=== PATIENT | female | born 1945 | race Caucasian/White ===

== ENCOUNTER 2017-07-10 16:44 | Inpatient (IN) | payer MEDICARE ==
[2017-07-10] MEDS ORDERED: DUONEB 0.5-3 MG/3 ml Neb IH ONE ×2 (16:55→17:21)
[2017-07-10] MEDS ORDERED: Sodium Chloride 0.9% 1000 ML 1,000 ML IV SCH (17:00)
[2017-07-10] MEDS ORDERED: Sodium Chloride 0.9% 1000 ML 1,000 ML ONE (17:09)
--- NOTE | 2017-07-10 17:15 | ERPHSYRPT ---
- History of Present Illness Source: patient Exam Limitations: no limitations Patient Subjective Stated Complaint: cough for 5 days Triage Nursing Assessment: cough for 5 days- yellow sputum production. fever at home. [facility] has had [address] peterson office this week 'but i think i am getting worse' skin worse and dry. dry cough noted. clear nasal drainage Timing/Duration: day(s) (5 days) Activities at Onset: none Severity of Dyspnea-Max: moderate Severity of Dyspnea-Current: moderate Possible Cause: frequent episodes Modifying Factors: Improves With: nothing Associated Symptoms: cough, wheezing Hx Tetanus, Diphtheria Vaccination/Date Given: Yes Hx Influenza Vaccination/Date Given: Yes Hx Pneumococcal Vaccination/Date Given: Yes Immunizations Up to Date: Yes <BREE COONEY - Last Filed: 07/10/17 18:50> <SELENE IRELAND - Last Filed: 07/10/17 21:01> - History of Present Illness Time Seen by Provider: 07/10/17 17:12 Physician History: cough for 5 days cough for 5 days- yellow sputum production. fever at home. [facility] has had [address] peterson office this week 'but i think i am getting worse' skin worse and dry. dry cough noted. clear nasal drainage. Patient has been off and on wheezing, as well as recurrent bronchitis. patient has been coughing with greenish yellow phlegm, started on antibiotics 3 days ago (BREE COONEY) Allergies/Adverse Reactions: albuterol sulfate [From Proventil HFA] Allergy (Intermediate, Verified 07/10/17 16:54) prednisone Allergy (Intermediate, Verified 07/10/17 16:54) lisinopril Allergy (Mild, Verified 07/10/17 16:54) Cough Home Medications: Acetaminophen [Tylenol Extra Strength] 1,000 mg PO Q6HPRN PRN 07/24/14 [History] Buspirone HCl 5 mg [Buspar 5 mg] 1 tab PO BIDPRN PRN 07/24/14 [History] Losartan/Hydrochlorothiazide [Losartan-Hctz 100-12.5 mg Tab] 1 tab PO DAILY 02/28 [History] Mvit-Mins/Folic Acid/Soy Isofl [One-A-Day Menopause Formula Tb] 1 each PO DAILY 07/17/15 [History] Simvastatin [Zocor] 5 mg PO HS 03/04/16 [History] - Review of Systems Constitutional: No Fever, No Chills Eyes: No Symptoms Ears, Nose, & Throat: No Symptoms Respiratory: Cough, Dyspnea, Dyspnea on Exertion (KONG) Cardiac: No Chest Pain, No Edema, No Syncope Abdominal/Gastrointestinal: No Abdominal Pain, No Nausea, No Vomiting, No Diarrhea Genitourinary Symptoms: No Dysuria Musculoskeletal: No Back Pain, No Neck Pain Skin: No Rash Neurological: No Dizziness, No Focal Weakness, No Sensory Changes Psychological: No Symptoms Endocrine: No Symptoms All Other Systems: Reviewed and Negative <JACQUELINE,BREE - Last Filed: 07/10/17 18:50> - Past Medical History Pertinent Past Medical History: Yes Neurological History: TIA ENT History: Cataracts Cardiac History: High Cholesterol, Hypertension Respiratory History: Asthma, Bronchitis, Pneumonia Endocrine Medical History: No Pertinent History Musculoskeletal History: Arthritis GI Medical History: Gallbladder Disease, Hemorrhoids, Irritable Bowel History: No Pertinent History Psycho-Social History: Anxiety, Depression Female Reproductive Disorders: Other - Past Surgical History Past Surgical History: Yes Neuro Surgical History: No Pertinent History Cardiac: No Pertinent History Respiratory: No Pertinent History Gastrointestinal: Appendectomy, Cholecystectomy, Hernia Repair Musculoskeletal: Orthopedic Surgery Female Surgical History: Hysterectomy Other Surgical History: L KNEE - CORNEAL TRANSPLANTS - CATARACTS BOTH EYES. C5- C6 NECK SURGERY tonsilectomy - Social History Smoking Status: Never smoker How long have you smoked: never Exposure to second hand smoke: Yes Drug Use: none Patient Lives Alone: No <JACQUELINE,BREE - Last Filed: 07/10/17 18:50> - Physical Exam General Appearance: no apparent distress, alert Eye Exam: PERRL/EOMI Ears, Nose, Throat Exam: normal pharynx Neck Exam: normal inspection, supple Respiratory Exam: diminished breath sounds, rhonchi, wheezing Cardiovascular/Chest Exam: normal heart sounds, regular rate/rhythm Abdominal/Gastrointestinal Exam: soft, No tenderness, No distention, No mass Extremity Exam: non-tender, normal range of motion, normal inspection, no calf tenderness, no pedal edema Neurologic Exam: alert, oriented x 3, cooperative, renderer II-XII nml as tested, sensation nml, No motor deficits Skin Exam: normal color, warm, No dry SpO2: 98 Oxygen Delivery: Room Air <JACQUELINE,BREE - Last Filed: 07/10/17 18:50> - Physical Exam SpO2 Interpretation: normal <SELENE IRELAND - Last Filed: 07/10/17 21:01> - Nursing Vital Signs Nursing Vital Signs: Initial Vital Signs Temperature 97.5 F 07/10/17 16:49 Pulse Rate 116 H 07/10/17 16:49 Respiratory Rate 18 07/10/17 16:49 Blood Pressure 118/58 07/10/17 16:49 O2 Sat by Pulse Oximetry 94 L 07/10/17 16:49 Pain Scale Pain Intensity 0 - Course Nursing assessment & vital signs reviewed: Yes EKG Interpreted by Me: Sinus Tach - Radiology Exams Chest X-ray Interpretation: Reviewed by me, Negative, No Pneumonia <LALA COONEYSH - Last Filed: 07/10/17 18:50> - Course EKG Interpreted by Me: RATE (103), Sinus Tach, NORMAL AXIS, NORMAL INTERVALS ( QTc 412), NORMAL QRS, NORMAL ST-T - Radiology Exams cxr X-ray Interpretation: Interpreted by me, Negative, No Pneumonia <SELENE IRELAND - Last Filed: 07/10/17 21:01> Ordered Tests: Active Orders 24 hr Category Date Time Status Filter Plant Supervisor STAT Care 07/10/17 16:57 Active EKG-ER Only STAT Care 07/10/17 16:55 Active IV Insertion STAT Care 07/10/17 19:34 Active Oxygen-ED Only NASAL CANNULA 2 lpm Care 07/10/17 16:55 Active CHEST 2 VIEWS (PA AND LAT) Stat Exams 07/10/17 16:56 Taken BLOOD CULTURE Stat Lab 07/10/17 20:51 Received CBC W DIFF Stat Lab 07/10/17 17:30 Completed CMP Stat Lab 07/10/17 16:55 Completed Lactic Acid Stat Lab 07/10/17 20:00 Completed MAGNESIUM Stat Lab 07/10/17 16:55 Completed Manual Differential NC Stat Lab 07/10/17 17:30 Completed NT PRO BNP Stat Lab 07/10/17 17:00 Completed TROPONIN Stat Lab 07/10/17 17:00 Completed Respiratory Nebulizer STAT RT 07/10/17 16:57 Completed Medication Summary Generic Name Dose Route Start Last Admin Trade Name Freq PRN Reason Stop Dose Admin Sodium Chloride 1,000 mls @ 50 mls/hr 07/10/17 17:00 07/10/17 17:27 Sodium Chloride 0.9% 1000 Ml IV 08/09/17 16:59 50 mls/hr .Q20H JOHNNA Administration Discontinued Medications Generic Name Dose Route Start Last Admin Trade Name Freq PRN Reason Stop Dose Admin Albuterol/Ipratropium 3 ml 07/10/17 16:55 07/10/17 17:27 Duoneb 0.5-3 Mg/3 Ml Neb IH 07/10/17 16:56 3 ml STAT ONE Administration Albuterol/Ipratropium Confirm 07/10/17 17:21 Duoneb 0.5-3 Mg/3 Ml Neb Administered 07/10/17 17:22 Dose 3 ml IH .STK-MED ONE Hydrocortisone Sodium Succinate 250 mg 07/10/17 18:20 07/10/17 18:27 Solu-Cortef 250mg IV 07/10/17 18:21 250 mg Q6H STA Administration Hydrocortisone Sodium Succinate Confirm 07/10/17 18:27 Solu-Cortef 250mg Administered 07/10/17 18:28 Dose 250 mg .ROUTE .STK-MED ONE Hydroxyzine HCl 25 mg 07/10/17 19:37 07/10/17 19:46 Atarax 25 Mg PO 07/10/17 19:38 25 mg STAT ONE Administration Hydroxyzine HCl Confirm 07/10/17 19:43 Atarax 25 Mg Administered 07/10/17 19:44 Dose 25 mg .ROUTE .STK-MED ONE Ceftriaxone Sodium/Dextrose 1 g in 50 mls @ 100 mls/hr 07/10/17 19:34 19:46 Rocephin 1 Gm-D5w 50 Ml Bag IV 07/10/17 20:03 100 mls/hr STAT STA Administration Ceftriaxone Sodium/Dextrose Confirm 07/10/17 19:43 Rocephin 1 Gm-D5w 50 Ml Bag Administered 07/10/17 19:44 Dose 1 g in 50 mls @ ud IV .STK-MED ONE Levalbuterol HCl 1.25 mg 07/10/17 19:36 07/10/17 19:52 Xopenex 1.25 Mg/0.5 Ml Ud Nebule IH 07/10/17 19:37 1.25 mg STAT ONE Administration Levalbuterol HCl Confirm 07/10/17 19:49 Xopenex 1.25 Mg/0.5 Ml Ud Nebule Administered 07/10/17 19:50 Dose 1.25 mg IH .STK-MED ONE Sodium Chloride Confirm 07/10/17 19:49 Sodium Chloride 3 Ml Ud Nebules Administered 07/10/17 19:50 Dose 3 ml IH .STK-MED ONE Lab/Rad Data: Laboratory Result Diagrams 07/10/17 17:30 07/10/17 16:55 Laboratory Results 07/10/17 07/10/17 07/10/17 Range/Units 20:00 17:30 17:00 WBC 10.2 (4.0-10.5) K/mm3 RBC 4.72 (4.1-5.4) M/mm3 Hgb 13.7 (12.0-16.0) gm/dl Hct 43.8 (35-47) % MCV 92.8 (78-100) fl MCH 29.0 (26-32) pg MCHC 31.3 L (32-36) g/dl RDW 14.6 H (11.5-14.0) % Plt Count 227 (150-450) K/mm3 MPV 9.8 H (6-9.5) fl Segmented Neutrophils 66 (36.0-66.0) % Lymphocytes (Manual) 29 (24-44) % Monocytes (Manual) 5 (0.0-12.0) % Differential Comment ABNORMAL Platelet Estimate NORMAL (NORMAL) Poikilocytosis 1+ Anisocytosis 1+ Sodium (136-145) mEq/L Potassium (3.5-5.1) mEq/L Chloride (98-107) mEq/L Carbon Dioxide (21-32) mEq/L Anion Gap (5-15) MEQ/L BUN (9-20) mg/dL Creatinine (0.55-1.30) mg/dl Estimated GFR ML/MIN Glucose (70-110) MG/DL Lactic Acid 1.4 (0.4-2.0) Calcium (8.5-10.1) mg/dL Magnesium (1.8-2.4) mg/dL Total Bilirubin (0.2-1.0) mg/dL AST (15-37) U/L ALT (12-78) U/L Alkaline Phosphatase (46-116) U/L Troponin I SEW ON OPERATOR NT-Pro-B Natriuret Pep SEW ON OPERATOR Serum Total Protein (6.4-8.2) gm/dL Albumin (3.4-5.0) g/dL 07/10/17 Range/Units 16:55 WBC (4.0-10.5) K/mm3 RBC (4.1-5.4) M/mm3 Hgb (12.0-16.0) gm/dl Hct (35-47) % MCV (78-100) fl MCH (26-32) pg MCHC (32-36) g/dl RDW (11.5-14.0) % Plt Count (150-450) K/mm3 MPV (6-9.5) fl Segmented Neutrophils (36.0-66.0) % Lymphocytes (Manual) (24-44) % Monocytes (Manual) (0.0-12.0) % Differential Comment Platelet Estimate (NORMAL) Poikilocytosis Anisocytosis Sodium 142 (136-145) mEq/L Potassium 3.9 (3.5-5.1) mEq/L Chloride 106 (98-107) mEq/L Carbon Dioxide 29.8 (21-32) mEq/L Anion Gap 10.0 (5-15) MEQ/L BUN 26 H (9-20) mg/dL Creatinine 1.32 H (0.55-1.30) mg/dl Estimated GFR 42 ML/MIN Glucose 101 (70-110) MG/DL Lactic Acid (0.4-2.0) Calcium 9.1 (8.5-10.1) mg/dL Magnesium 2.1 (1.8-2.4) mg/dL Total Bilirubin 0.40 (0.2-1.0) mg/dL AST 18 (15-37) U/L ALT 21 (12-78) U/L Alkaline Phosphatase 96 (46-116) U/L Troponin I NT-Pro-B Natriuret Pep Serum Total Protein 7.3 (6.4-8.2) gm/dL Albumin 3.3 L (3.4-5.0) g/dL <JACQUELINE,BREE - Last Filed: 07/10/17 18:50> - Progress Discussed with .: Jacqueline Will see patient in: hospital (full admit) Counseled pt/family regarding: lab results, diagnosis, need for follow-up, rad results <SELENE IRELAND - Last Filed: 07/10/17 21:01> - Progress Progress Note: 07/10/17 19:41 Pt initially seen per Dr cooney. She has hx of asthma, nonsmoker. She was treated with two steroid shots thru Dr Cooney office. She has increased cough with phlegm production over the past few days to one week. Worse since Mon. States feels shaky with hx of albuterol but takes albuterol inhlaer without problems, has had xzopenex in past without problems, and had duoneb today without problems. PT: Wheezing bilateral diffusely. 07/10/17 20:59 She has continued diffuse wheezing despite nebs and steroids. She has failed OP therapy with office injections of steroids. Rocephin given. Called Dr Cooney who will admit for IP care. 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
[2017-07-10 17:35] LABS: Granulocyte Absolute (ANC) 7.45 (1.4-6.9); Hematocrit 43.8 % (35-47); Hemoglobin 13.7 gm/dl (12.0-16.0); Mean Cell Volume 92.8 fl (78-100); Mean Corpuscular Hgb Concent. 31.3 g/dl (32-36); Mean Platelet Volume 9.8 fl (6-9.5); Platelet Count 227 K/mm3 (150-450); Red Blood Count 4.72 M/mm3 (4.1-5.4); Red Cell Distribution Width 14.6 % (11.5-14.0); White Blood Count 10.2 K/mm3 (4.0-10.5)
[2017-07-10 18:13] LABS: Lymphocytes 29 % (24-44); Monocyte 5 % (0.0-12.0); Neutrophils 66 % (36.0-66.0); Total Cells Counted 100
[2017-07-10 18:16] LABS: ANISOCYTOSIS 1+; Platelet Estimate NORMAL (NORMAL); Poikilocytosis 1+
[2017-07-10] MEDS ORDERED: solu-CORTEF 250MG IV STA (18:20)
[2017-07-10] MEDS ORDERED: solu-CORTEF 250MG ONE (18:27)
[2017-07-10 19:34] LABS: ALBUMIN 3.3 g/dL (3.4-5.0); BILIRUBIN,TOTAL 0.4 mg/dL (0.2-1.0); Calcium 9.1 mg/dL (8.5-10.1); Carbon Dioxide 29.8 mEq/L (21-32); Creatinine 1 1.32 mg/dl (0.55-1.30); MAGNESIUM 2.1 mg/dL (1.8-2.4); Potassium 3.9 mEq/L (3.5-5.1); Total Protein 7.3 gm/dL (6.4-8.2)
[2017-07-10] MEDS ORDERED: ROCEPHIN 1 Gm-D5w 50 ml Bag** 1 G/50 ML IVPB IV STA (19:34)
[2017-07-10] MEDS ORDERED: Xopenex 1.25 MG/0.5 ML UD NEBULE IH ONE ×2 (19:36→19:49)
[2017-07-10] MEDS ORDERED: ATARAX 25 MG PO ONE (19:37)
[2017-07-10] MEDS ORDERED: ATARAX 25 MG ONE (19:43)
[2017-07-10] MEDS ORDERED: ROCEPHIN 1 Gm-D5w 50 ml Bag** 1 G/50 ML IVPB IV ONE (19:43)
[2017-07-10] MEDS ORDERED: Sodium Chloride 3 ML UD NEBULES IH ONE (19:49)
[2017-07-10] MEDS ORDERED: Vibramycin 100 MG PO ONE (20:59)
--- NOTE | 2017-07-10 21:13 | XRAY ---
Indication: Cough and short of breath. Comparison: May 28, 2016. PA/lateral chest again demonstrates normal heart and lungs with a few calcified granulomas. Bony thorax intact again with mild degenerative changes and lower cervical fusion surgery. No new/acute findings.
[2017-07-10] MEDS ORDERED: TYLENOL 325 MG PO PRN (21:29)
[2017-07-10] MEDS: solu-MEDROL 125 MG IV SCH (21:32)
[2017-07-10] MEDS: CLARITIN 10 MG PO SCH (22:48)
[2017-07-10] MEDS: Vibramycin 100 MG PO SCH (22:49)
[2017-07-10] MEDS: Zocor 10MG PO SCH (22:49)
[2017-07-10] MEDS: D5W/0.45NS W/ 20mEq KCl 1000 ML 1,000 ML IV SCH (22:50)
[2017-07-11] MEDS: DUONEB 0.5-3 MG/3 ml Neb IH SCH ×7 (02:45→23:05)
[2017-07-11] MEDS: solu-MEDROL 125 MG IV SCH ×3 (04:52→21:21)
[2017-07-11] MEDS: D5W/0.45NS W/ 20mEq KCl 1000 ML 1,000 ML IV SCH ×2 (08:34→18:39)
[2017-07-11] MEDS: Vibramycin 100 MG PO SCH ×2 (09:43→21:22)
[2017-07-11] MEDS ORDERED: TYLENOL EXTRA STRENGTH 500 MG PO PRN (10:28)
[2017-07-11] MEDS ORDERED: BUSPAR 5 MG PO PRN (10:28)
[2017-07-11] MEDS ORDERED: Ventolin Hfa MDI IH PRN (10:28)
[2017-07-11] MEDS ORDERED: PROVENTIL COMMON CANISTER IH SCH (10:45)
[2017-07-11] MEDS: Cozaar 50 MG PO SCH (10:48)
[2017-07-11] MEDS: Flonase NASAL NS SCH (10:49)
[2017-07-11] MEDS: hydroDIURIL 25 MG PO SCH (10:49)
[2017-07-11] MEDS: THERAGRAN MULTIVITAMIN PO SCH (10:49)
--- NOTE | 2017-07-11 13:06 | PCM.HP ---
History of Present Illness - Chief Complaint Chief Complaint: Shortness of Breath History of Present Illness: is a 71 year old female.cough for 5 days cough for 5 days- yellow sputum production. fever at home. states has had [address] peterson office this week 'but i think i am getting worse' skin worse and dry. dry cough noted. clear nasal drainage. Patient has been off and on wheezing, as well as recurrent bronchitis. patient has been coughing with greenish yellow phlegm, started on antibiotics 3 days ago - Review of Systems Constitutional: No Fever, No Chills Eyes: No Symptoms Ears, Nose, & Throat: No Symptoms Respiratory: No Cough, No Short Of Breath Cardiac: No Chest Pain, No Edema, No Syncope Abdominal/Gastrointestinal: No Abdominal Pain, No Nausea, No Vomiting, No Diarrhea Genitourinary Symptoms: No Dysuria Musculoskeletal: No Back Pain, No Neck Pain Skin: No Rash Neurological: No Dizziness, No Focal Weakness, No Sensory Changes Psychological: No Symptoms Endocrine: No Symptoms Hematologic/Lymphatic: No Symptoms Immunological/Allergic: No Symptoms Medications & Allergies Home Medications: Home Medication List Acetaminophen [Tylenol Extra Strength] 1,000 mg PO Q6HPRN PRN 07/24/14 [History Confirmed 07/10/17] Buspirone HCl 5 mg [Buspar 5 mg] 1 tab PO BIDPRN PRN 07/24/14 [History Confirmed 07/10/17] Losartan/Hydrochlorothiazide [Losartan-Hctz 100-12.5 mg Tab] 1 tab PO DAILY 02/28 [History Confirmed 07/10/17] Ibuprofen 600 mg PO Q6H PRN PRN #20 tablet 07/17/15 [Rx Confirmed 07/10/17] Mvit-Mins/Folic Acid/Soy Isofl [One-A-Day Menopause Formula Tb] 1 each PO DAILY 07/17/15 [History Confirmed 07/10/17] Simvastatin [Zocor] 5 mg PO HS 03/04/16 [History Confirmed 07/10/17] Albuterol Sulfate [Ventolin Hfa] 18 gm IH Q4H PRN PRN 07/10/17 [History Confirmed 07/10/17] Cetirizine HCl [Zyrtec] 10 mg PO HS 07/10/17 [History Confirmed 07/10/17] Fluticasone Propionate [Flonase Nasal] 1 spray DAILY 07/10/17 [History Confirmed 07/10/17] Vits W-Ca,Fe,FA(<1Mg) [] 1 each PO DAILY 07/10/17 [History Confirmed 07/10/17] Allergies/Adverse Reactions: Allergies Allergy/AdvReac Type Severity Reaction Status Date / Time prednisone Allergy Intermediate Verified 07/10/17 16:54 lisinopril Allergy Mild Cough Verified 07/10/17 16:54 - Past Medical History Past Medical History: Yes Neurological History: TIA ENT History: Cataracts Cardiac History: High Cholesterol, Hypertension Respiratory History: Asthma, Bronchitis, Pneumonia Endocrine Medical History: No Pertinent History Musculoskelatal History: Arthritis GI Medical History: Gallbladder Disease, Hemorrhoids, Irritable Bowel History: No Pertinent History Pyscho-Social History: Anxiety, Depression Reproductive Disorders: Other - Female History Are you now?: No - Past Surgical History Past Surgical History: Yes Neuro Surgical History: No Pertinent History Cardiac History: No Pertinent History Respiratory Surgery: No Pertinent History GI Surgical History: Appendectomy, Cholecystectomy, Hernia Repair Genitourinary Surgical Hx: No Pertinent History Musculskeletal Surgical Hx: Orthopedic Surgery Female Surgical History: Hysterectomy Other Surgical History: L KNEE - CORNEAL TRANSPLANTS - CATARACTS BOTH EYES. C5- C6 NECK SURGERY tonsilectomy - Social History Smoking Status: Never smoker How long have you smoked: never Exposure to second hand smoke: Yes Alcohol: None Drug Use: none - Physical Exam Vital Signs: Vital Signs - 24 hr Temp Pulse Resp BP Pulse Ox 07/11/17 11:10 98.5 F 99 H 18 116/55 95 07/11/17 11:00 99 H 22 96 07/11/17 07:23 97.8 F 83 18 133/60 95 07/11/17 07:00 84 16 96 07/11/17 06:11 90 22 96 07/11/17 04:00 97.8 F 84 16 126/62 94 L 07/11/17 00:00 98.4 F 92 H 20 124/59 96 07/10/17 21:44 98.2 F 106 H 20 147/65 94 L 07/10/17 20:30 114 H 20 152/60 93 L 07/10/17 19:36 99 H 22 98 07/10/17 18:50 98 07/10/17 18:21 108 H 22 141/63 97 07/10/17 17:28 98 H 22 97 07/10/17 16:49 97.5 F 116 H 18 118/58 98 Oxygen-Last 24 hours O2 Percentage 2 Liters = 28% General Appearance: no apparent distress, alert Neurologic Exam: alert, oriented x 3, cooperative, normal mood/affect, nml cerebellar function, nml station & gait, sensation nml, No motor deficits Eye Exam: PERRL/EOMI, eyes nml inspection Ears, Nose, Throat Exam: normal ENT inspection, TMs normal, pharynx normal, moist mucous membranes Neck Exam: normal inspection, non-tender, supple, full range of motion Respiratory Exam: diminished breath sounds, rhonchi, wheezing, No respiratory distress Cardiovascular Exam: regular rate/rhythm, normal heart sounds, normal peripheral pulses Gastrointestinal/Abdomen Exam: soft, normal bowel sounds, No tenderness, No mass Back Exam: normal inspection, normal range of motion, No CVA tenderness, No vertebral tenderness Extremity Exam: normal inspection, normal range of motion, pelvis stable Skin Exam: normal color, warm, dry, No rash Lymphatic Exam: No adenopathy Results - Other Procedures and Tests Respiratory Therapy 07/11/17 07:00 Respiratory Nebulizer Q4H 07/11/17 11:17 Respiratory MDI Assessment/Plan (1) Acute asthmatic bronchitis Current Visit: Yes Status: Acute Assessment & Plan: Last Vital Signs Temp 98.5 F 07/11/17 11:10 Pulse 99 H 07/11/17 11:10 Resp 18 07/11/17 11:10 BP 116/55 07/11/17 11:10 Pulse Ox 95 07/11/17 11:10 Allergies prednisone Allergy (Intermediate, Verified 07/10/17 16:54) lisinopril Allergy (Mild, Verified 07/10/17 16:54) Cough Active Medications Acetaminophen (Tylenol 325 Mg) 650 mg PO Q4H PRN PRN PRN Reason: PAIN AND/OR FEVER Stop: 08/09/17 21:28 Acetaminophen (Tylenol Extra Strength 500 Mg) 1,000 mg PO Q6HPRN PRN PRN Reason: PAIN Stop: 08/10/17 10:27 Albuterol Sulfate (Proventil Common Canister) 2 puff IH Q4H PRN JOHNNA Stop: 08/10/17 10:44 Albuterol/Ipratropium (Duoneb 0.5-3 Mg/3 Ml Neb) 3 ml IH Q4HRT [facility] Stop: 08/09/17 22:59 Last Admin: 07/11/17 11:11 Dose: 3 ml Buspirone HCl (Buspar 5 Mg) 5 mg PO BIDPRN PRN PRN Reason: ANXIETY Stop: 08/10/17 10:27 Last Admin: 07/11/17 10:48 Dose: 5 mg Doxycycline Hyclate (Vibramycin 100 Mg) 100 mg PO BID JOHNNA Stop: 08/09/17 21:59 Last Admin: 07/11/17 09:43 Dose: 100 mg Fluticasone Propionate (Flonase Nasal) 0 gm NS DAILY [facility] Stop: 08/10/17 10:44 Last Admin: 07/11/17 10:49 Dose: 16 gm Hydrochlorothiazide (Hydrodiuril 25 Mg) 12.5 mg PO DAILY [facility] Stop: 08/10/17 10:44 Last Admin: 07/11/17 10:49 Dose: 12.5 mg Ceftriaxone Sodium/Dextrose (Rocephin 1 Gm-D5w 50 Ml Bag) 1 g in 50 mls @ 100 mls/hr IV Q24H22 [facility] Stop: 08/10/17 21:59 Potassium Chloride/Dextrose/Sod Cl (D5w/0.45ns W/ 20meq Kcl 1000 Ml) 1,000 mls @ 100 mls/hr IV .Q10H [facility] Stop: 08/09/17 21:29 Last Admin: 07/11/17 08:34 Dose: 100 mls/hr Ibuprofen (Motrin 600 Mg) 600 mg PO Q6H PRN PRN PRN Reason: PAIN Stop: 08/10/17 10:27 Loratadine (Claritin 10 Mg) 10 mg PO HS [facility] Stop: 08/09/17 21:59 Last Admin: 07/10/17 22:48 Dose: 10 mg Losartan Potassium (Cozaar 50 Mg) 100 mg PO DAILY [facility] Stop: 08/10/17 10:44 Last Admin: 07/11/17 10:48 Dose: 100 mg Methylprednisolone Sodium Succinate (Solu-Medrol 125 Mg) 80 mg IV Q8HT [facility] Stop: 08/10/17 13:59 Multivitamins (Theragran Multivitamin) 1 tab PO DAILY JOHNNA Stop: 08/10/17 10:44 Last Admin: 07/11/17 10:49 Dose: 1 tab Simvastatin (Zocor 10mg) 5 mg PO HS [facility] Stop: 08/09/17 21:59 Last Admin: 07/10/17 22:49 Dose: 5 mg Intake & Output 07/11/17 07/12/17 11:59 11:59 Intake Total 1593 360 Output Total 850 Balance 743 360 Weight 109.27 kg Orders 07/10/17 22:00 Loratadine 10 mg [Claritin 10 mg] 10 mg PO HS Simvastatin 10 mg [Zocor 10MG] 5 mg PO HS 07/11/17 07:00 Respiratory Nebulizer Q4H 07/11/17 10:28 Acetaminophen 500 mg [Tylenol Extra Strength 500 mg] 1,000 mg PO Q6HPRN PRN Buspirone HCl 5 mg [Buspar 5 mg] 5 mg PO BIDPRN PRN Ibuprofen 600 mg [Motrin 600 mg] 600 mg PO Q6H PRN PRN 07/11/17 10:45 Albuterol Common Canister [Proventil Common Canister] 2 puff IH Q4H PRN Fluticasone Propionate [Flonase NASAL] 0 gm NS DAILY Hydrochlorothiazide 25 mg [hydroDIURIL 25 MG] 12.5 mg PO DAILY Losartan Potassium 50 mg [Cozaar 50 MG] 100 mg PO DAILY Multivitamins,Therapeutic Tab* [Theragran Multivitamin] 1 tab PO DAILY 07/11/17 11:17 Respiratory MDI Lab Tests 07/10/17 07/10/17 07/10/17 16:55 17:00 17:30 WBC 10.2 RBC 4.72 Hgb 13.7 Hct 43.8 MCV 92.8 MCH 29.0 MCHC 31.3 L RDW 14.6 H Plt Count 227 MPV 9.8 H Segmented Neutrophils 66 Lymphocytes (Manual) 29 Monocytes (Manual) 5 Differential Comment ABNORMAL Platelet Estimate NORMAL Poikilocytosis 1+ Anisocytosis 1+ Sodium 142 Potassium 3.9 Chloride 106 Carbon Dioxide 29.8 Anion Gap 10.0 BUN 26 H Creatinine 1.32 H Estimated GFR 42 Glucose 101 Lactic Acid Calcium 9.1 Magnesium 2.1 Total Bilirubin 0.40 AST 18 ALT 21 Alkaline Phosphatase 96 Troponin I [employer] NT-Pro-B Natriuret Pep [employer] Serum Total Protein 7.3 Albumin 3.3 L 07/10/17 20:00 WBC RBC Hgb Hct MCV MCH MCHC RDW Plt Count MPV Segmented Neutrophils Lymphocytes (Manual) Monocytes (Manual) Differential Comment Platelet Estimate Poikilocytosis Anisocytosis Sodium Potassium Chloride Carbon Dioxide Anion Gap BUN Creatinine Estimated GFR Glucose Lactic Acid 1.4 Calcium Magnesium Total Bilirubin AST ALT Alkaline Phosphatase Troponin I NT-Pro-B Natriuret Pep Serum Total Protein Albumin Code(s): J45.909 - UNSPECIFIED ASTHMA, UNCOMPLICATED (2) Bronchospasm Current Visit: Yes Status: Acute Code(s): J98.01 - ACUTE BRONCHOSPASM (3) Failure of outpatient treatment Current Visit: Yes Status: Acute Code(s): Z78.9 - OTHER SPECIFIED HEALTH STATUS (4) 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
--- NOTE | 2017-07-11 13:08 | PCM.NOTE ---
Date and Time: 07/11/17 1307 Subjective Assessment: doing ok, - Review of Systems Constitutional: No Fever, No Chills Eyes: No Symptoms Ears, Nose, & Throat: No Symptoms Respiratory: Short Of Breath, No Cough Cardiac: No Chest Pain, No Edema, No Syncope Abdominal/Gastrointestinal: No Abdominal Pain, No Nausea, No Vomiting, No Diarrhea Genitourinary Symptoms: No Dysuria Musculoskeletal: No Back Pain, No Neck Pain Skin: No Rash Neurological: No Dizziness, No Focal Weakness, No Sensory Changes Psychological: No Symptoms Endocrine: No Symptoms Hematologic/Lymphatic: No Symptoms Immunological/Allergic: No Symptoms Objective Exam General Appearance: no apparent distress, alert Neurologic Exam: alert, oriented x 3, cooperative, normal mood/affect, nml cerebellar function, sensation nml, No motor deficits Skin Exam: normal color, warm, dry Eye Exam: PERRL, EOMI, eyes nml inspection Ears, Nose, Throat Exam: normal ENT inspection, pharynx normal, moist mucous membranes Neck Exam: normal inspection, non-tender, supple, full range of motion Respiratory Exam: normal breath sounds, lungs clear, No respiratory distress Cardiovascular Exam: regular rate/rhythm, normal heart sounds Gastrointestinal/Abdomen Exam: soft, No tenderness, No mass Extremity Exam: normal inspection, normal range of motion Back Exam: normal inspection, normal range of motion, No CVA tenderness, No vertebral tenderness Pelvic Exam: deferred Rectal Exam: deferred OBJECTIVE DATA Vital Signs: Vital Signs - 24 hr Temp Pulse Resp BP Pulse Ox 07/11/17 11:10 98.5 F 99 H 18 116/55 95 07/11/17 11:00 99 H 22 96 07/11/17 07:23 97.8 F 83 18 133/60 95 07/11/17 07:00 84 16 96 07/11/17 06:11 90 22 96 07/11/17 04:00 97.8 F 84 16 126/62 94 L 07/11/17 00:00 98.4 F 92 H 20 124/59 96 07/10/17 21:44 98.2 F 106 H 20 147/65 94 L 07/10/17 20:30 114 H 20 152/60 93 L 07/10/17 19:36 99 H 22 98 07/10/17 18:50 98 07/10/17 18:21 108 H 22 141/63 97 07/10/17 17:28 98 H 22 97 07/10/17 16:49 97.5 F 116 H 18 118/58 98 Oxygen-Last 24 hours O2 Percentage 2 Liters = 28% Intake and Output: Intake & Output 07/09/17 07/10/17 07/11/17 07/12/17 11:59 11:59 11:59 11:59 Intake Total 1593 360 Output Total 850 Balance 743 360 Weight 109.27 kg Assessment/Plan (1) Acute asthmatic bronchitis Current Visit: Yes Status: Acute Code(s): J45.909 - UNSPECIFIED ASTHMA, UNCOMPLICATED (2) Bronchospasm Current Visit: Yes Status: Acute Code(s): J98.01 - ACUTE BRONCHOSPASM (3) Failure of outpatient treatment Current Visit: Yes Status: Acute Code(s): Z78.9 - OTHER SPECIFIED HEALTH STATUS (4) 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
[2017-07-11] MEDS: ROCEPHIN 1 Gm-D5w 50 ml Bag** 1 G/50 ML IVPB IV SCH (21:19)
[2017-07-11] MEDS: CLARITIN 10 MG PO SCH (21:21)
[2017-07-11] MEDS: Zocor 10MG PO SCH (21:22)
[2017-07-12] MEDS: DUONEB 0.5-3 MG/3 ml Neb IH SCH ×6 (03:16→23:24)
[2017-07-12] MEDS: D5W/0.45NS W/ 20mEq KCl 1000 ML 1,000 ML IV SCH ×2 (05:17→15:01)
[2017-07-12] MEDS: solu-MEDROL 125 MG IV SCH ×3 (05:18→21:37)
--- NOTE | 2017-07-12 09:28 | PCM.NOTE ---
Date and Time: 07/12/17926 Subjective Assessment: still wheezing - Review of Systems Constitutional: No Fever, No Chills Eyes: No Symptoms Ears, Nose, & Throat: No Symptoms Respiratory: No Cough, No Short Of Breath Cardiac: No Chest Pain, No Edema, No Syncope Abdominal/Gastrointestinal: No Abdominal Pain, No Nausea, No Vomiting, No Diarrhea Genitourinary Symptoms: No Dysuria Musculoskeletal: No Back Pain, No Neck Pain Skin: No Rash Neurological: No Dizziness, No Focal Weakness, No Sensory Changes Psychological: No Symptoms Endocrine: No Symptoms Hematologic/Lymphatic: No Symptoms Immunological/Allergic: No Symptoms Objective Exam General Appearance: no apparent distress, alert Neurologic Exam: alert, oriented x 3, cooperative, normal mood/affect, nml cerebellar function, sensation nml, No motor deficits Skin Exam: normal color, warm, dry Eye Exam: PERRL, EOMI, eyes nml inspection Ears, Nose, Throat Exam: normal ENT inspection, pharynx normal, moist mucous membranes Neck Exam: normal inspection, non-tender, supple, full range of motion Respiratory Exam: normal breath sounds, lungs clear, No respiratory distress Cardiovascular Exam: regular rate/rhythm, normal heart sounds Gastrointestinal/Abdomen Exam: soft, No tenderness, No mass Extremity Exam: normal inspection, normal range of motion Back Exam: normal inspection, normal range of motion, No CVA tenderness, No vertebral tenderness Pelvic Exam: deferred Rectal Exam: deferred OBJECTIVE DATA Vital Signs: Vital Signs - 24 hr Temp Pulse Resp BP Pulse Ox 07/12/17 07:53 97.8 F 87 20 120/58 94 L 07/12/17 07:00 103 H 20 94 L 07/12/17 04:00 99.2 F 96 H 20 141/62 92 L 07/12/17 03:16 96 H 20 92 L 07/12/17 00:00 98.8 F 107 H 20 134/63 93 L 07/11/17 23:05 91 H 20 95 07/11/17 20:00 98.7 F 87 20 114/54 93 L 07/11/17 19:45 89 20 95 07/11/17 17:38 98.4 F 108 H 18 110/53 93 L 07/11/17 16:00 98.4 F 108 H 18 110/53 93 L 07/11/17 15:21 83 20 94 L 07/11/17 11:10 98.5 F 99 H 18 116/55 95 07/11/17 11:00 99 H 22 96 Pain Assessment - Last Documented Pain Intensity 5 Pain Scale Used 0-10 Pain Scale Intake and Output: Intake & Output 07/09/17 07/10/17 07/11/17 07/12/17 11:59 11:59 11:59 11:59 Intake Total 1593 3710 Output Total 850 1800 Balance 743 1910 Weight 109.27 kg Assessment/Plan (1) Acute asthmatic bronchitis Current Visit: Yes Status: Acute Assessment & Plan: Chief Complaint Diagnosis Shortness of Breath Allergies Allergy/AdvReac Type Severity Reaction Status Date / Time prednisone Allergy Intermediate Verified 07/10/17 16:54 lisinopril Allergy Mild Cough Verified 07/10/17 16:54 Vital Signs (Last 24 hours) Temp Pulse Resp BP Pulse Ox 07/12/17 07:53 97.8 F 87 20 120/58 94 L 07/12/17 07:00 103 H 20 94 L 07/12/17 04:00 99.2 F 96 H 20 141/62 92 L 07/12/17 03:16 96 H 20 92 L 07/12/17 00:00 98.8 F 107 H 20 134/63 93 L 07/11/17 23:05 91 H 20 95 07/11/17 20:00 98.7 F 87 20 114/54 93 L 07/11/17 19:45 89 20 95 07/11/17 17:38 98.4 F 108 H 18 110/53 93 L 07/11/17 16:00 98.4 F 108 H 18 110/53 93 L 07/11/17 15:21 83 20 94 L 07/11/17 11:10 98.5 F 99 H 18 116/55 95 07/11/17 11:00 99 H 22 96 Home Medications Medication Instructions Recorded Confirmed Last Taken Type Albuterol Sulfate [Ventolin Hfa] 18 gm IH Q4H PRN PRN 07/10/17 07/10/17 History Cetirizine HCl [Zyrtec] 10 mg PO HS 07/10/17 07/10/17 07/09/17 21:00 History Fluticasone Propionate [Flonase 1 spray DAILY 07/10/17 07/10/17 07/09/17 History Nasal] Vits W-Ca,Fe,FA(<1Mg) 1 each PO DAILY 07/10/17 07/10/17 07/10/17 History [] Current Medications Generic Name Dose Route Start Last Admin Trade Name Freq PRN Reason Stop Dose Admin Acetaminophen 650 mg 07/10/17 21:29 Tylenol 325 Mg PO 08/09/17 21:28 Q4H PRN PRN PAIN AND/OR FEVER Acetaminophen 1,000 mg 07/11/17 10:28 07/12/17 03:35 Tylenol Extra Strength 500 Mg PO 08/10/17 10:27 1,000 mg Q6HPRN PRN Administration PAIN Albuterol Sulfate 2 puff 07/11/17 10:45 Proventil Common Canister IH 08/10/17 10:44 Q4H PRN JOHNNA Albuterol/Ipratropium 3 ml 07/10/17 23:00 07/12/17 06:59 Duoneb 0.5-3 Mg/3 Ml Neb IH 08/09/17 22:59 3 ml Q4HRT JOHNNA Administration Buspirone HCl 5 mg 07/11/17 10:28 07/11/17 10:48 Buspar 5 Mg PO 08/10/17 10:27 5 mg BIDPRN PRN Administration ANXIETY Doxycycline Hyclate 100 mg 07/10/17 22:00 07/11/17 21:22 Vibramycin 100 Mg PO 08/09/17 21:59 100 mg BID JOHNNA Administration Fluticasone Propionate 0 gm 07/11/17 10:45 07/11/17 10:49 Flonase Nasal NS 08/10/17 10:44 16 gm DAILY JOHNNA Administration Hydrochlorothiazide 12.5 mg 07/11/17 10:45 07/11/17 10:49 Hydrodiuril 25 Mg PO 08/10/17 10:44 12.5 mg DAILY JOHNNA Administration Ceftriaxone Sodium/Dextrose 1 g in 50 mls @ 100 mls/hr 07/11/17 22:00 21:19 Rocephin 1 Gm-D5w 50 Ml Bag IV 08/10/17 21:59 100 mls/hr Q24H22 JOHNNA Administration Potassium Chloride/Dextrose/Sod Cl 1,000 mls @ 100 mls/hr 07/10/17 21:30 05:17 D5w/0.45ns W/ 20meq Kcl 1000 Ml IV 08/09/17 21:29 100 mls/hr .Q10H JOHNNA Administration Ibuprofen 600 mg 07/11/17 10:28 Motrin 600 Mg PO 08/10/17 10:27 Q6H PRN PRN PAIN Loratadine 10 mg 07/10/17 22:00 07/11/17 21:21 Claritin 10 Mg PO 08/09/17 21:59 10 mg HS JOHNNA Administration Losartan Potassium 100 mg 07/11/17 10:45 07/11/17 10:48 Cozaar 50 Mg PO 08/10/17 10:44 100 mg DAILY JOHNNA Administration Methylprednisolone Sodium Succinate 80 mg 07/11/17 14:00 07/12/17 05:18 Solu-Medrol 125 Mg IV 08/10/17 13:59 80 mg Q8HT JOHNNA Administration Multivitamins 1 tab 07/11/17 10:45 07/11/17 10:49 Theragran Multivitamin PO 08/10/17 10:44 1 tab DAILY JOHNNA Administration Simvastatin 5 mg 07/10/17 22:00 07/11/17 21:22 Zocor 10mg PO 08/09/17 21:59 5 mg HS JOHNNA Administration Discontinued Medications Generic Name Dose Route Start Last Admin Trade Name Freq PRN Reason Stop Dose Admin Albuterol/Ipratropium 3 ml 07/10/17 16:55 07/10/17 17:27 Duoneb 0.5-3 Mg/3 Ml Neb IH 07/10/17 16:56 3 ml STAT ONE Administration Albuterol/Ipratropium Confirm 07/10/17 17:21 Duoneb 0.5-3 Mg/3 Ml Neb Administered 07/10/17 17:22 Dose 3 ml IH .STK-MED ONE Doxycycline Hyclate 100 mg 07/10/17 20:59 07/10/17 23:06 Vibramycin 100 Mg PO 07/10/17 21:00 Not Given STAT ONE Hydrocortisone Sodium Succinate 250 mg 07/10/17 18:20 07/10/17 18:27 Solu-Cortef 250mg IV 07/10/17 18:21 250 mg Q6H STA Administration Hydrocortisone Sodium Succinate Confirm 07/10/17 18:27 Solu-Cortef 250mg Administered 07/10/17 18:28 Dose 250 mg .ROUTE .STK-MED ONE Hydroxyzine HCl 25 mg 07/10/17 19:37 07/10/17 19:46 Atarax 25 Mg PO 07/10/17 19:38 25 mg STAT ONE Administration Hydroxyzine HCl Confirm 07/10/17 19:43 Atarax 25 Mg Administered 07/10/17 19:44 Dose 25 mg .ROUTE .STK-MED ONE Sodium Chloride 1,000 mls @ 50 mls/hr 07/10/17 17:00 07/10/17 17:27 Sodium Chloride 0.9% 1000 Ml IV 08/09/17 16:59 50 mls/hr .Q20H JOHNNA Administration Ceftriaxone Sodium/Dextrose 1 g in 50 mls @ 100 mls/hr 07/10/17 19:34 19:46 Rocephin 1 Gm-D5w 50 Ml Bag IV 07/10/17 20:03 100 mls/hr STAT STA Administration Ceftriaxone Sodium/Dextrose Confirm 07/10/17 19:43 Rocephin 1 Gm-D5w 50 Ml Bag Administered 07/10/17 19:44 Dose 1 g in 50 mls @ ud IV .STK-MED ONE Sodium Chloride Confirm 07/10/17 17:09 Sodium Chloride 0.9% 1000 Ml Administered 07/10/17 17:10 Dose 1,000 mls @ ud .ROUTE .STK-MED ONE Levalbuterol HCl 1.25 mg 07/10/17 19:36 07/10/17 19:52 Xopenex 1.25 Mg/0.5 Ml Ud Nebule IH 07/10/17 19:37 1.25 mg STAT ONE Administration Levalbuterol HCl Confirm 07/10/17 19:49 Xopenex 1.25 Mg/0.5 Ml Ud Nebule Administered 07/10/17 19:50 Dose 1.25 mg IH .STK-MED ONE Methylprednisolone Sodium Succinate 80 mg 07/10/17 21:30 07/11/17 04:52 Solu-Medrol 125 Mg IV 08/09/17 21:29 80 mg Q8H JOHNNA Administration Sodium Chloride Confirm 07/10/17 19:49 Sodium Chloride 3 Ml Ud Nebules Administered 07/10/17 19:50 Dose 3 ml IH .STK-MED ONE Intake & Output (Last 24 hours) 07/09/17 07/10/17 07/11/17 07/12/17 11:59 11:59 11:59 11:59 Intake Total 1593 3710 Output Total 850 1800 Balance 743 1910 Weight 109.27 kg Microbiology Results (Last 24 hours) 07/10/17 20:51 Blood - Pending 07/10/17 20:51 Blood Blood Culture - Preliminary NO GROWTH TO DATE 07/10/17 17:15 Blood - Pending 07/10/17 17:15 Blood Blood Culture - Preliminary NO GROWTH TO DATE Orders (Last 24 hours) Category Date Time Status Acetaminophen 500 mg [Tylenol Extra Strength 500 mg* Med 07/11/17 10:28 Active ] 1,000 mg PO Q6HPRN PRN Albuterol Common Canister [Proventil Common Canister Med 07/11/17 10:45 Active ] 2 puff IH Q4H PRN Buspirone HCl 5 mg [Buspar 5 mg] Med 07/11/17 10:28 Active 5 mg PO BIDPRN PRN Ceftriaxone 1 GM/50 ML PREMIX* [ROCEPHIN 1 Gm-D5w 50 ml Med 07/11/17 22:00 Active Bag] 1 g in 50 ml IV Q24H22 Fluticasone Propionate [Flonase NASAL] Med 07/11/17 10:45 Active 0 gm NS DAILY Hydrochlorothiazide 25 mg [hydroDIURIL 25 MG] Med 07/11/17 10:45 Active 12.5 mg PO DAILY Ibuprofen 600 mg [Motrin 600 mg] Med 07/11/17 10:28 Active 600 mg PO Q6H PRN PRN Losartan Potassium 50 mg [Cozaar 50 MG] Med 07/11/17 10:45 Active 100 mg PO DAILY Methylprednis Sod Succ 125 mg* [solu-MEDROL 125 MG] Med 07/11/17 14:00 Active 80 mg IV Q8HT Multivitamins,Therapeutic Tab* [Theragran Multivitamin* Med 07/11/17 10:45 Active ] 1 tab PO DAILY Respiratory MDI RT 07/11/17 11:17 Active Code(s): J45.909 - UNSPECIFIED ASTHMA, UNCOMPLICATED (2) Bronchospasm Current Visit: Yes Status: Acute Code(s): J98.01 - ACUTE BRONCHOSPASM (3) Failure of outpatient treatment Current Visit: Yes Status: Acute Code(s): Z78.9 - OTHER SPECIFIED HEALTH STATUS (4) 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
[2017-07-12 09:59] LABS: Hematocrit 40.3 % (35-47); Hemoglobin 12.3 gm/dl (12.0-16.0); Mean Cell Volume 93.7 fl (78-100); Mean Corpuscular Hemoglobin 28.6 pg (26-32); Mean Corpuscular Hgb Concent. 30.5 g/dl (32-36); Mean Platelet Volume 9.8 fl (6-9.5); Platelet Count 221 K/mm3 (150-450); Red Cell Distribution Width 14.9 % (11.5-14.0); White Blood Count 13.2 K/mm3 (4.0-10.5)
[2017-07-12] MEDS ORDERED: HYDROCHLOROTHIAZIDE PO SCH (10:00)
[2017-07-12] MEDS ORDERED: LOSARTAN PO SCH (10:00)
[2017-07-12] MEDS ORDERED: NON-FORMULARY ITEM (Prenatal Vits W-Ca,Fe,Fa(<1mg) [Prenatal] 1 EACH) PO SCH (10:00)
[2017-07-12 10:25] LABS: ALBUMIN 2.8 g/dL (3.4-5.0); ANION GAP 12.4 MEQ/L (5-15); BILIRUBIN,TOTAL 0.2 mg/dL (0.2-1.0); Calcium 8.8 mg/dL (8.5-10.1); Carbon Dioxide 26.1 mEq/L (21-32); Creatinine 1 1.23 mg/dl (0.55-1.30); Potassium 4.1 mEq/L (3.5-5.1); Total Protein 6.5 gm/dL (6.4-8.2)
[2017-07-12] MEDS: hydroDIURIL 25 MG PO SCH (10:32)
[2017-07-12] MEDS: Flonase NASAL NS SCH (10:32)
[2017-07-12] MEDS: Cozaar 50 MG PO SCH (10:32)
[2017-07-12] MEDS: Vibramycin 100 MG PO SCH ×2 (10:32→22:15)
[2017-07-12] MEDS: THERAGRAN MULTIVITAMIN PO SCH (10:32)
[2017-07-12] MEDS: MOTRIN 600 MG PO PRN (15:00)
[2017-07-12] MEDS: Robitussin AC Syrup Unit Dose Cup PO PRN ×2 (17:49→23:28)
[2017-07-12] MEDS: MORPHINE SULFATE 2 MG INJ IV PRN (21:34)
[2017-07-12] MEDS: ROCEPHIN 1 Gm-D5w 50 ml Bag** 1 G/50 ML IVPB IV SCH ×2 (21:41→22:11)
[2017-07-12] MEDS: CLARITIN 10 MG PO SCH (22:14)
[2017-07-12] MEDS: Zocor 10MG PO SCH (22:15)
[2017-07-13] MEDS: D5W/0.45NS W/ 20mEq KCl 1000 ML 1,000 ML IV SCH ×2 (02:17→14:44)
[2017-07-13] MEDS: MORPHINE SULFATE 2 MG INJ IV PRN ×3 (02:19→14:43)
[2017-07-13] MEDS: solu-MEDROL 125 MG IV SCH ×3 (05:37→22:06)
[2017-07-13] MEDS ORDERED: Robitussin AC Syrup Unit Dose Cup ONE (05:43)
[2017-07-13] MEDS: Robitussin AC Syrup Unit Dose Cup PO PRN ×3 (05:44→23:50)
--- NOTE | 2017-07-13 09:02 | XRAY ---
Indication: Lower chest/upper abdominal pain. Cough. Multiple contiguous axial images obtained through the abdomen and pelvis without contrast as ordered. Comparison: None Lung bases demonstrates a few left lower lobe calcified granulomas. No infiltrate, consolidation, or effusion. Heart is not enlarged. Small hiatal hernia. Stomach is distended with food. Noncontrasted stomach and bowel loops appear nonobstructed. Mild sigmoid diverticulosis without diverticulitis. Previous reported appendectomy, cholecystectomy, hysterectomy, and ventral hernia repair. No free fluid/air. Scattered hepatic/splenic calcified granulomas. Remaining liver, pancreas, spleen, adrenal glands, kidneys, ureters, and bladder appear unremarkable for noncontrast exam. Mild aortoiliac calcifications without AAA. Osseous structures intact with mild degenerative changes throughout the spine. Impression: 1. No acute intra-abdominal/pelvic abnormalities on this noncontrast exam. 2. Incidental small hiatal hernia, sigmoid diverticulosis, and evidence for old granulomatous disease. Comment: Preliminary interpretation was made by [facility]. No critical discrepancy. CT DI 23.68
[2017-07-13] MEDS: Vibramycin 100 MG PO SCH ×2 (09:06→22:05)
[2017-07-13] MEDS: hydroDIURIL 25 MG PO SCH (09:06)
[2017-07-13] MEDS: THERAGRAN MULTIVITAMIN PO SCH (09:07)
[2017-07-13] MEDS: Flonase NASAL NS SCH (09:07)
[2017-07-13] MEDS: Cozaar 50 MG PO SCH (09:07)
--- NOTE | 2017-07-13 13:32 | PCM.NOTE ---
Date and Time: 07/13/17 1331 Subjective Assessment: last 24 hours events noted - Review of Systems Constitutional: No Fever, No Chills Eyes: No Symptoms Ears, Nose, & Throat: No Symptoms Respiratory: Cough, No Short Of Breath Cardiac: No Chest Pain, No Edema, No Syncope Abdominal/Gastrointestinal: No Abdominal Pain, No Nausea, No Vomiting, No Diarrhea Genitourinary Symptoms: No Dysuria Musculoskeletal: No Back Pain, No Neck Pain Skin: No Rash Neurological: No Dizziness, No Focal Weakness, No Sensory Changes Psychological: No Symptoms Endocrine: No Symptoms Hematologic/Lymphatic: No Symptoms Immunological/Allergic: No Symptoms Objective Exam General Appearance: no apparent distress, alert Neurologic Exam: alert, oriented x 3, cooperative, normal mood/affect, nml cerebellar function, sensation nml, No motor deficits Skin Exam: normal color, warm, dry Eye Exam: PERRL, EOMI, eyes nml inspection Ears, Nose, Throat Exam: normal ENT inspection, pharynx normal, moist mucous membranes Neck Exam: normal inspection, non-tender, supple, full range of motion Respiratory Exam: normal breath sounds, lungs clear, No respiratory distress Cardiovascular Exam: regular rate/rhythm, normal heart sounds Gastrointestinal/Abdomen Exam: soft, No tenderness, No mass Extremity Exam: normal inspection, normal range of motion Back Exam: normal inspection, normal range of motion, No CVA tenderness, No vertebral tenderness Pelvic Exam: deferred Rectal Exam: deferred OBJECTIVE DATA Vital Signs: Vital Signs - 24 hr Temp Pulse Resp BP Pulse Ox 07/13/17 11:45 98.6 F 72 20 136/62 94 L 07/13/17 08:00 98.5 F 73 20 133/62 94 L 07/13/17 07:00 71 18 96 07/13/17 04:00 98.5 F 69 18 120/58 94 L 07/13/17 00:00 98.3 F 83 18 137/65 95 07/12/17 20:00 98.3 F 83 18 157/66 95 07/12/17 18:53 98 H 19 94 L 07/12/17 16:00 98.5 F 116 H 22 135/61 94 L 07/12/17 14:40 104 H 18 95 Pain Assessment - Last Documented Pain Intensity 7 Pain Scale Used 0-10 Pain Scale Intake and Output: Intake & Output 07/11/17 07/12/17 07/13/17 12/29/17 11:59 11:59 11:59 11:59 Intake Total 1593 3710 4309 Output Total 850 1800 4200 Balance 743 1910 109 Weight 109.27 kg Radiology Exams: Radiology Procedures Category Date Time Status ABDOMEN AND PELVIS W/0 CONTRAS [CT] Stat Exams 07/12/17 21:20 Completed Assessment/Plan (1) Acute asthmatic bronchitis Current Visit: Yes Status: Acute Assessment & Plan: doing better Code(s): J45.909 - UNSPECIFIED ASTHMA, UNCOMPLICATED (2) Bronchospasm Current Visit: Yes Status: Acute Code(s): J98.01 - ACUTE BRONCHOSPASM (3) Failure of outpatient treatment Current Visit: Yes Status: Acute Code(s): Z78.9 - OTHER SPECIFIED HEALTH STATUS (4) 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
[2017-07-13] MEDS: DUONEB 0.5-3 MG/3 ml Neb IH PRN (20:53)
[2017-07-13] MEDS: ROCEPHIN 1 Gm-D5w 50 ml Bag** 1 G/50 ML IVPB IV SCH (22:04)
[2017-07-13] MEDS: CLARITIN 10 MG PO SCH (22:05)
[2017-07-13] MEDS: Zocor 10MG PO SCH (22:05)
[2017-07-14] MEDS: DUONEB 0.5-3 MG/3 ml Neb IH PRN (03:48)
[2017-07-14] MEDS: solu-MEDROL 125 MG IV SCH (05:42)
[2017-07-14] MEDS: DUONEB 0.5-3 MG/3 ml Neb IH SCH ×2 (06:50→11:04)
[2017-07-14] MEDS: Cozaar 50 MG PO SCH (07:57)
[2017-07-14] MEDS: THERAGRAN MULTIVITAMIN PO SCH (07:57)
[2017-07-14] MEDS: hydroDIURIL 25 MG PO SCH (07:58)
[2017-07-14] MEDS: Vibramycin 100 MG PO SCH (07:58)
[2017-07-14] MEDS: Flonase NASAL NS SCH (07:58)
--- NOTE | 2017-07-14 08:23 | PCM.NOTE ---
Date and Time: 07/14/17818 Subjective Assessment: doing ok, still c/o cough - Review of Systems Constitutional: No Fever, No Chills Eyes: No Symptoms Ears, Nose, & Throat: No Symptoms Respiratory: No Cough, No Short Of Breath Cardiac: No Chest Pain, No Edema, No Syncope Abdominal/Gastrointestinal: No Abdominal Pain, No Nausea, No Vomiting, No Diarrhea Genitourinary Symptoms: No Dysuria Musculoskeletal: No Back Pain, No Neck Pain Skin: No Rash Neurological: No Dizziness, No Focal Weakness, No Sensory Changes Psychological: No Symptoms Endocrine: No Symptoms Hematologic/Lymphatic: No Symptoms Immunological/Allergic: No Symptoms Objective Exam General Appearance: no apparent distress, alert Neurologic Exam: alert, oriented x 3, cooperative, normal mood/affect, nml cerebellar function, sensation nml, No motor deficits Skin Exam: normal color, warm, dry Eye Exam: PERRL, EOMI, eyes nml inspection Ears, Nose, Throat Exam: normal ENT inspection, pharynx normal, moist mucous membranes Neck Exam: normal inspection, non-tender, supple, full range of motion Respiratory Exam: diminished breath sounds, crackles/rales, rhonchi, wheezing, No respiratory distress Cardiovascular Exam: regular rate/rhythm, normal heart sounds Gastrointestinal/Abdomen Exam: soft, No tenderness, No mass Extremity Exam: normal inspection, normal range of motion Back Exam: normal inspection, normal range of motion, No CVA tenderness, No vertebral tenderness Pelvic Exam: deferred Rectal Exam: deferred OBJECTIVE DATA Vital Signs: Vital Signs - 24 hr Temp Pulse Resp BP Pulse Ox 07/14/17 07:35 98.4 F 82 18 130/60 93 L 07/14/17 06:53 76 16 93 L 07/14/17 04:05 98.4 F 72 17 125/58 94 L 07/14/17 03:48 70 20 92 L 07/14/17 00:07 98.2 F 76 20 155/70 95 07/13/17 20:53 77 18 95 07/13/17 20:00 98.2 F 83 20 134/65 93 L 07/13/17 16:00 98.6 F 72 20 136/62 94 L 07/13/17 11:45 98.6 F 72 20 136/62 94 L Pain Assessment - Last Documented Pain Intensity 3 Pain Scale Used 0-10 Pain Scale Intake and Output: Intake & Output 07/11/17 07/12/17 07/13/17 07/14/17 11:59 11:59 11:59 11:59 Intake Total 1593 3710 4309 3059 Output Total 850 1800 4200 2900 Balance 743 1910 109 159 Weight 109.27 kg 109.27 kg Radiology Exams: Radiology Procedures Category Date Time Status ABDOMEN AND PELVIS W/0 CONTRAS [CT] Stat Exams 07/12/17 21:20 Completed Multi-Disciplinary Progress Notes: Multi-Disciplinary Progress Notes 07/13/17 13:45 (created 07/13/17 14:26) Case Management Note by Kasey Davison DR. ROUNDED AND EVALUATED, DISCUSSED PLAN OF CARE WITH PT, DISCUSSED LIKELY ONE MORE DAY OF TREATMENT. PT IS IN AGREEMENT. ALL QUESTIONS ANSWERED AT THIS TIME. CONTINUES TO DECLINE NEEDS FOR DISCHARGE. WILL CONTINUE TO FOLLOW AND ASSESS FOR ALL DC NEEDS. 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
[2017-07-14] MEDS: Robitussin AC Syrup Unit Dose Cup PO PRN (10:01)
[2017-07-14] MEDS: MOTRIN 600 MG PO PRN (10:01)
[2017-07-14 10:26] LABS: Hematocrit 39.8 % (35-47); Hemoglobin 12.3 gm/dl (12.0-16.0); Mean Cell Volume 93.4 fl (78-100); Mean Corpuscular Hemoglobin 28.9 pg (26-32); Mean Corpuscular Hgb Concent. 30.9 g/dl (32-36); Mean Platelet Volume 9.6 fl (6-9.5); Platelet Count 213 K/mm3 (150-450); Red Blood Count 4.26 M/mm3 (4.1-5.4); Red Cell Distribution Width 14.6 % (11.5-14.0); White Blood Count 11.4 K/mm3 (4.0-10.5)
[2017-07-14 10:54] LABS: ALBUMIN 2.7 g/dL (3.4-5.0); ANION GAP 10.8 MEQ/L (5-15); BILIRUBIN,TOTAL 0.2 mg/dL (0.2-1.0); Calcium 8.7 mg/dL (8.5-10.1); Carbon Dioxide 29.2 mEq/L (21-32); Creatinine 1 1.5 mg/dl (0.55-1.30); Potassium 4.6 mEq/L (3.5-5.1); Total Protein 6.1 gm/dL (6.4-8.2)
[2017-07-14 11:49] VITALS: BP 122/66; PULSE 89; O2SAT 95
[2017-07-14] MEDS ORDERED: solu-MEDROL 40 MG IV SCH (22:00)
== END 2017-07-14 14:15 | disposition home or self-care (01) | DRG 203 ==
LOC: ED 16:44 → MED SURG 21:26
PROVIDERS: ADMIT General Practice; ATTEND General Practice
DX: J45.902 Unspecified asthma with status asthmaticus (principal); J20.9 Acute bronchitis, unspecified; I10 Essential (primary) hypertension; M19.90 Unspecified osteoarthritis, unspecified site; F41.8 Other specified anxiety disorders; J45.42 Moderate persistent asthma with status asthmaticus; J98.01 Acute bronchospasm; Z78.9 Other specified health status; Z79.899 Other long term (current) drug therapy
CPT/HCPCS: 36000; 36415; 71020; 74176; 80053; 83605; 83735; 83880; 84484; 85025; 85027; 87040; 93005; 93041; 94640; 94760; 96360; 96365; 96374; 99285; J0696; J1720; J2270; J2930; A9270-GY

== ENCOUNTER 2018-07-15 14:13 | Emergency (ER) | payer MEDICARE, OTHER ==
--- NOTE | 2018-07-15 15:43 | ERPHSYRPT ---
- History of Present Illness Time Seen by Provider: 07/15/18 15:35 Source: patient Exam Limitations: no limitations Patient Subjective Stated Complaint: pt here for cough, stuffy nose, chest congestion since monday, she has hx of asthma and states she thinks it is flairing up Triage Nursing Assessment: pt alert, resp easy,skin w/d/p, chest with diminished bs, hoarse voice, Physician History: The patient is a 72-year-old female complaining that she has a cough, sore throat, and hoarseness that began 3 days ago on Monday. She has asthma and typically gets a steroid shot and a Z-Remy for problems like this before it " goes into pneumonia". She denies fever or chills. Her past medical history is significant for asthma, HTN, myasthenia 's, and high cholesterol. Timing/Duration: day(s) (3) Cough Quality/Degree: dry cough Possible Cause: occasional episodes Modifying Factors: Improves With: albuterol inhaler, coughing Associated Symptoms: cough Allergies/Adverse Reactions: prednisone Allergy (Intermediate, Verified 07/15/18 14:28) lisinopril Allergy (Mild, Verified 07/15/18 14:28) Cough Home Medications: Acetaminophen [Tylenol Extra Strength] 1,000 mg PO Q6HPRN PRN 07/24/14 [History] Buspirone HCl 5 mg [Buspar 5 mg] 1 tab PO BIDPRN PRN 07/24/14 [History] Losartan/Hydrochlorothiazide [Losartan-Hctz 100-12.5 mg Tab] 1 tab PO DAILY 02/28 [History] Mvit-Mins/Folic Acid/Soy Isofl [One-A-Day Menopause Formula Tb] 1 each PO DAILY 07/17/15 [History] Simvastatin [Zocor] 5 mg PO HS 03/04/16 [History] Albuterol Sulfate [Ventolin Hfa] 18 gm IH Q4H PRN PRN 07/10/17 [History] Cetirizine HCl [Zyrtec] 10 mg PO HS 07/10/17 [History] Fluticasone Propionate [Flonase Nasal] 1 spray DAILY 07/10/17 [History] Vits W-Ca,Fe,FA(<1Mg) [] 1 each PO DAILY 07/10/17 [History] Hx Tetanus, Diphtheria Vaccination/Date Given: Yes Hx Influenza Vaccination/Date Given: Yes Hx Pneumococcal Vaccination/Date Given: Yes Immunizations Up to Date: Yes - Review of Systems Constitutional: No Fever, No Chills Eyes: No Symptoms Ears, Nose, & Throat: Nose Congestion, Hoarse, Painful Swallowing Respiratory: Cough Cardiac: No Chest Pain, No Edema, No Syncope Abdominal/Gastrointestinal: No Abdominal Pain, No Nausea, No Vomiting, No Diarrhea Genitourinary Symptoms: No Dysuria Musculoskeletal: No Back Pain, No Neck Pain Skin: No Rash Neurological: No Dizziness, No Focal Weakness, No Sensory Changes Psychological: No Symptoms Endocrine: No Symptoms Hematologic/Lymphatic: No Symptoms Immunological/Allergic: No Symptoms All Other Systems: Reviewed and Negative - Past Medical History Pertinent Past Medical History: Yes Neurological History: TIA ENT History: Cataracts Cardiac History: High Cholesterol, Hypertension Respiratory History: Asthma, Bronchitis, Pneumonia Endocrine Medical History: No Pertinent History Musculoskeletal History: Arthritis GI Medical History: Gallbladder Disease, Hemorrhoids, Irritable Bowel History: No Pertinent History Psycho-Social History: Anxiety, Depression Female Reproductive Disorders: Other - Past Surgical History Past Surgical History: Yes Neuro Surgical History: No Pertinent History Cardiac: No Pertinent History Respiratory: No Pertinent History Gastrointestinal: Appendectomy, Cholecystectomy, Hernia Repair Genitourinary: No Pertinent History Musculoskeletal: Orthopedic Surgery Female Surgical History: Hysterectomy Other Surgical History: L KNEE - CORNEAL TRANSPLANTS - CATARACTS BOTH EYES. C5- C6 NECK SURGERY tonsilectomy - Social History Smoking Status: Never smoker How long have you smoked: never Exposure to second hand smoke: Yes (ws till jun 16) Drug Use: none Patient Lives Alone: No - Female History Hx Last Menstrual Period: post Hx Now: No - Nursing Vital Signs Nursing Vital Signs: Initial Vital Signs Temperature 98.6 F 07/15/18 14:21 Pulse Rate 125 H 07/15/18 14:21 Respiratory Rate 24 07/15/18 14:21 Blood Pressure 161/94 07/15/18 14:21 O2 Sat by Pulse Oximetry 98 07/15/18 14:21 Pain Scale Pain Intensity 4 - Physical Exam General Appearance: mild distress, obese Eye Exam: PERRL/EOMI, eyes nml inspection Ears, Nose, Throat Exam: pharyngeal erythema Neck Exam: normal inspection, non-tender, supple, full range of motion Respiratory Exam: normal breath sounds, lungs clear, No respiratory distress, No wheezing Cardiovascular Exam: regular rate/rhythm, normal heart sounds Gastrointestinal/Abdomen Exam: soft, No tenderness Pelvic Exam: not done Rectal Exam: not done Back Exam: normal inspection, No CVA tenderness, No vertebral tenderness Extremity Exam: normal inspection, normal range of motion Neurologic Exam: alert, oriented x 3, cooperative, normal mood/affect, sensation nml, No motor deficits Skin Exam: normal color, warm, dry, No rash Lymphatic Exam: No adenopathy SpO2 Interpretation: normal SpO2: 98 Oxygen Delivery: Room Air - Radiology Exams Chest X-ray Interpretation: Interpreted by me, Infiltrates (right mid lung, comp 2V chest 07/10/17.) Ordered Tests: Active Orders 24 hr Category Date Time Status CHEST 2 VIEWS (PA AND LAT) Stat Exams 07/15/18 16:05 Taken Medication Summary Discontinued Medications Generic Name Dose Route Start Last Admin Trade Name Freq PRN Reason Stop Dose Admin Ceftriaxone Sodium 1,000 mg 07/15/18 15:49 07/15/18 15:54 Rocephin 1000 Mg Inj IM 07/15/18 15:50 1,000 mg STAT ONE Administration Ceftriaxone Sodium Confirm 07/15/18 15:53 Rocephin 1000 Mg Inj Administered 07/15/18 15:54 Dose 1,000 mg .ROUTE .STK-MED ONE Dexamethasone Sodium Phosphate 10 mg 07/15/18 15:48 07/15/18 15:55 Decadron 10mg Inj. IV 07/15/18 15:49 10 mg STAT ONE Administration Dexamethasone Sodium Phosphate Confirm 07/15/18 15:53 Decadron 10mg Inj. Administered 07/15/18 15:54 Dose 10 mg .ROUTE .STK-MED ONE Lidocaine HCl Confirm 07/15/18 15:53 Xylocaine 1% Hcl 20 Ml Mdv Administered 07/15/18 15:54 Dose 3 ml .ROUTE .STK-MED ONE - Departure Time of Disposition: 16:07 Departure Disposition: Home Clinical Impression: Cough, Infiltrate noted on imaging study Clinical Impression: (Ruled Out): Cough due to PARDEEP inhibitor Condition: Stable Critical Care Time: No Referrals: BREE PHILLIPS MD [Primary Care Provider] - Additional Instructions: You have a cough and a small infiltrate on your chest x-ray that could be the beginning of pneumonia. You were given Rocephin 1 g and Decadron 10 mg by IM in the ER. Take azithromycin 500 mg on day one followed by 250 mg daily for days 2 through 5. Take Tessalon Perles 100 mg every 8 hours as needed for cough. Follow-up with your primary medical doctor as needed. Prescriptions: Benzonatate [Tessalon Perle] 100 mg PO Q8H PRN PRN #12 capsule PRN Reason: Cough Benzonatate [Tessalon Perle] 100 mg PO Q8H PRN PRN #12 capsule PRN Reason: Cough Azithromycin 250 mg [Zithromax 250 MG TABLET] 250 mg PO ZPACK #6 tablet Azithromycin 250 mg [Zithromax 250 MG TABLET] 250 mg PO ZPACK #6 tablet
[2018-07-15] MEDS ORDERED: DECADRON 10MG INJ. IV ONE (15:48)
[2018-07-15] MEDS ORDERED: Rocephin 1000 MG INJ IM ONE (15:49)
[2018-07-15] MEDS ORDERED: XYLOCAINE 1% HCL 20 ML MDV ONE (15:53)
[2018-07-15] MEDS ORDERED: Rocephin 1000 MG INJ ONE (15:53)
[2018-07-15] MEDS ORDERED: DECADRON 10MG INJ. ONE (15:53)
[2018-07-15 16:28] VITALS: BP 138/65; PULSE 80; O2SAT 95
--- NOTE | 2018-07-15 20:57 | XRAY ---
Indication: Cough. Comparison: July 10, 2017. PA/lateral chest again demonstrates normal heart and lungs with a few incidental calcified granulomas. Bony thorax intact again with mild degenerative changes and lower cervical fusion surgery. No new/acute findings.
== END 2018-07-15 16:28 | disposition home or self-care (01) ==
LOC: ED 14:13
DX: R05 Cough (principal); R91.8 Other nonspecific abnormal finding of lung field; J02.9 Acute pharyngitis, unspecified; R49.0 Dysphonia; Z79.899 Other long term (current) drug therapy; I10 Essential (primary) hypertension
CPT/HCPCS: 71046; 96372; 96374; 99284; J0696; J1100

== ENCOUNTER 2018-09-01 10:53 | Emergency (ER) | payer MEDICARE, OTHER ==
--- NOTE | 2018-09-01 11:43 | ERPHSYRPT ---
- History of Present Illness Time Seen by Provider: 09/01/18 11:37 Source: patient Exam Limitations: no limitations Patient Subjective Stated Complaint: C/o chronic low back pain and states pain in low back started this past mon. Denies injury. Also c/o urinary frequency. states "I think I have a UTI.". States had same pain in past and had UTI. Triage Nursing Assessment: AAox3, color good, walked in, resp easy, lungs clear , abd soft, bowel sounds noted, MENDIOLA well, no edema to extemeties noted. Physician History: The patient is a 9-year-old female complaining of worsening low back pain that began 6 months ago. The pain became significantly worse on Monday. Tylenol helps take the edge off the pain. It hurts when she tries to get up. She denies numbness or tingling. She denies pain radiation to the legs. She has no trouble with urination or defecation. She also complained of urinary problems that are associated with a bladder infection. She called her doctor and was given a prescription over the phone of Keflex. She began taking yesterday. She specifically states she is not here for the UTI. Her past medical history significant for back pain, asthma, HTN, and high cholesterol. Timing/Duration: day(s) (3), gradual onset, worse Method of Injury: unknown Quality: aching Back Pain Location: lumbar spine, paraspinous muscles Severity of Pain-Max: moderate Severity of Pain-Current: moderate Modifying Factors: Improves With: pain medication Associated Symptoms: muscle spasms, No urinary incontinence, No loss of bowel control, No problems urinating, No lower back pain Previous symptoms: no prior history Allergies/Adverse Reactions: prednisone Allergy (Intermediate, Verified 07/15/18 14:28) lisinopril Allergy (Mild, Verified 07/15/18 14:28) Cough Home Medications: Losartan/Hydrochlorothiazide [Losartan-Hctz 100-12.5 mg Tab] 1 tab PO DAILY 02/28 [History] Mvit-Mins/Folic Acid/Soy Isofl [One-A-Day Menopause Formula Tb] 1 each PO DAILY 07/17/15 [History] Simvastatin [Zocor] 5 mg PO HS 03/04/16 [History] Albuterol Sulfate [Ventolin Hfa] 18 gm IH Q4H PRN PRN 07/10/17 [History] Vits W-Ca,Fe,FA(<1Mg) [] 1 each PO DAILY 07/10/17 [History] Cetirizine HCl [Zyrtec] 5 mg PO HS 09/01/18 [History] Losartan/Hydrochlorothiazide [Losartan-Hctz 100-12.5 mg Tab] 1 each PO DAILY [History] Hx Tetanus, Diphtheria Vaccination/Date Given: Yes Hx Influenza Vaccination/Date Given: Yes Hx Pneumococcal Vaccination/Date Given: Yes Immunizations Up to Date: Yes - Review of Systems Constitutional: No Fever, No Chills Eyes: No Symptoms Ears, Nose, & Throat: No Symptoms Respiratory: No Cough, No Dyspnea Cardiac: No Chest Pain, No Edema, No Syncope Abdominal/Gastrointestinal: No Abdominal Pain, No Nausea, No Vomiting, No Diarrhea Genitourinary Symptoms: No Dysuria Musculoskeletal: Back Pain Skin: No Rash Neurological: No Dizziness, No Focal Weakness, No Sensory Changes Psychological: No Symptoms Endocrine: No Symptoms Hematologic/Lymphatic: No Symptoms Immunological/Allergic: No Symptoms All Other Systems: Reviewed and Negative - Past Medical History Pertinent Past Medical History: Yes Neurological History: TIA ENT History: Cataracts Cardiac History: High Cholesterol, Hypertension Respiratory History: Asthma, Bronchitis, Pneumonia Endocrine Medical History: No Pertinent History Musculoskeletal History: Arthritis GI Medical History: Gallbladder Disease, Hemorrhoids, Irritable Bowel History: No Pertinent History Psycho-Social History: Anxiety, Depression Female Reproductive Disorders: Other - Past Surgical History Past Surgical History: Yes Neuro Surgical History: No Pertinent History Cardiac: No Pertinent History Respiratory: No Pertinent History Gastrointestinal: Appendectomy, Cholecystectomy, Hernia Repair Genitourinary: No Pertinent History Musculoskeletal: Orthopedic Surgery Female Surgical History: Hysterectomy Other Surgical History: L KNEE - CORNEAL TRANSPLANTS - CATARACTS BOTH EYES. C5- C6 NECK SURGERY tonsilectomy - Social History Smoking Status: Never smoker How long have you smoked: never Exposure to second hand smoke: Yes Drug Use: none Patient Lives Alone: Yes - Nursing Vital Signs Nursing Vital Signs: Initial Vital Signs Temperature 97.8 F 09/01/18 10:57 Pulse Rate 80 09/01/18 10:57 Respiratory Rate 20 09/01/18 10:57 Blood Pressure 170/67 09/01/18 10:57 O2 Sat by Pulse Oximetry 100 09/01/18 10:57 Pain Scale Pain Intensity 8 - Physical Exam General Appearance: no apparent distress, alert, obese Eye Exam: PERRL/EOMI, eyes nml inspection Ears, Nose, Throat Exam: normal ENT inspection Neck Exam: normal inspection, non-tender, supple, full range of motion, No meningismus, No midline tenderness Respiratory Exam: normal breath sounds, lungs clear, No respiratory distress Cardiovascular Exam: regular rate/rhythm, normal heart sounds Gastrointestinal Exam: soft, No tenderness, No mass Pelvic Exam: not done Rectal Exam: not done Back Exam: muscle spasm (Lumbar paraspinous muscles is significant for bilateral tenderness and spasm.) Extremity Exam: normal inspection, normal range of motion, No calf tenderness, No pedal edema Neurologic Exam: alert, oriented x 3, cooperative, web marketing coordinator II-XII nml as tested, normal mood/affect, nml station & gait, sensation nml, No motor deficits Skin Exam: normal color, warm, dry, No rash SpO2 Interpretation: normal SpO2: 100 O2 Delivery: Room Air - Radiology Exams L-Spine X-ray Interpretation: Interpreted by me, Negative, No Fracture, No Subluxation Ordered Tests: Active Orders 24 hr Category Date Time Status LUMBAR LIMITED (2 OR 3 VIEWS) Stat Exams 09/01/18 11:43 Taken - Progress Progress: unchanged Progress Note: 09/01/18 12:58 Pt driving home and does not want any sedating meds in ER. Counseled pt/family regarding: rad results - Departure Time of Disposition: 12:59 Departure Disposition: Home Clinical Impression: Spasm of back muscles Condition: Stable Critical Care Time: No Referrals: BREE PHILLIPS MD [Primary Care Provider] - Additional Instructions: You have spasms in your back muscles. Take Flexeril 10 mg every 8 hours as needed. Apply ice to the area for 10-15 minutes 2 or 3 times a day as needed. Use a lumbar support for your lower back when you are driving. Follow-up with your primary medical doctor as needed. Prescriptions: Cyclobenzaprine HCl 10 mg PO Q8H PRN PRN #10 tablet PRN Reason: Pain
[2018-09-01 13:07] VITALS: BP 138/64; PULSE 66; O2SAT 97
--- NOTE | 2018-09-02 00:27 | XRAY ---
Indication: Low back pain 6 months. No known injury. Comparison: None 3 views of the lumbar spine demonstrates 5 lumbar vertebral segments in normal alignment with mild mild multilevel endplate spurring, mild L5-S1 disc space narrowing, mild scattered vascular calcifications, calcified splenic granulomas, cholecystectomy clips, and ventral mesh graft. No other bony, articular, or soft tissue abnormalities. Impression: Nonacute lumbar spine with chronic features.
== END 2018-09-01 13:12 | disposition home or self-care (01) ==
LOC: ED 10:53
DX: M62.830 Muscle spasm of back (principal); M54.5 Low back pain; G89.29 Other chronic pain; I10 Essential (primary) hypertension; E78.00 Pure hypercholesterolemia, unspecified; J45.909 Unspecified asthma, uncomplicated; Z79.899 Other long term (current) drug therapy
CPT/HCPCS: 72100; 99283

== ENCOUNTER 2019-02-09 21:08 | Emergency (ER) | payer MEDICARE, OTHER ==
[2019-02-09 22:26] VITALS: O2SAT 98
[2019-02-09] MEDS ORDERED: NORCO 5/325 MG PO ONE ×2 (22:49→23:23)
[2019-02-09] MEDS ORDERED: NORCO 5/325 MG ONE ×2 (22:55→23:28)
--- NOTE | 2019-02-09 22:55 | ERPHSYRPT ---
- History of Present Illness Time Seen by Provider: 02/09/19 22:44 Source: patient Exam Limitations: no limitations Patient Subjective Stated Complaint: pt states she dropped a crock on her leg. states it bruised immediately and has had pain 10/10 in it Triage Nursing Assessment: pt alert and oriented, answers questions approp. pt back to room per wheelchair. transfers to stretcher with minimal assist. limping gait noted. respirations nonlabored with lungs cta. bruising and tenderness noted to rt lower leg. Physician History: 73-year-old white female arrives with complaint of pain in her right lower leg symptoms since approximately 8:00 this evening. She states that she dropped a crockpot which struck her in the right lower leg she complains of pain in the right lower leg she has some bruising in the right lower leg medially. Past medical history includes TIA, cataracts, hyperlipidemia, high blood pressure, asthma, bronchitis, pneumonia, gallbladder disease, hemorrhoids, irritable bowel, anxiety, depression. Past surgical history includes appendectomy, cholecystectomy, hernia repair, hysterectomy, left knee surgery, carpal tunnel, cataracts, C5-C6 Surgery, tonsillectomy. Method of Injury: direct blow (dropped a crockpot which struck her right lower leg) Occurred: this evening (8:00 this evening) Quality: constant Severity of Pain-Max: moderate Severity of Pain-Current: moderate Lower Extremities Pain: leg: right Modifying Factors: Improves With: nothing Associated Symptoms: none Allergies/Adverse Reactions: prednisone Allergy (Intermediate, Verified 02/09/19 22:28) lisinopril Allergy (Mild, Verified 02/09/19 22:28) Cough Home Medications: Mvit-Mins/Folic Acid/Soy Isofl [One-A-Day Menopause Formula Tb] 1 each PO DAILY 07/17/15 [History] Albuterol Sulfate [Ventolin Hfa] 18 gm IH Q4H PRN PRN 07/10/17 [History] Cetirizine HCl [Zyrtec] 5 mg PO HS 09/01/18 [History] Losartan/Hydrochlorothiazide [Losartan-Hctz 100-12.5 mg Tab] 1 each PO DAILY [History] Hx Tetanus, Diphtheria Vaccination/Date Given: Yes Hx Influenza Vaccination/Date Given: Yes Hx Pneumococcal Vaccination/Date Given: Yes Immunizations Up to Date: Yes - Review of Systems Constitutional: No Fever, No Chills Eyes: No Symptoms Ears, Nose, & Throat: No Symptoms Respiratory: No Cough, No Dyspnea Cardiac: No Chest Pain, No Edema, No Syncope Abdominal/Gastrointestinal: No Abdominal Pain, No Nausea, No Vomiting, No Diarrhea Genitourinary Symptoms: No Dysuria Musculoskeletal: Other (pain right lower leg) Skin: Other (bruising right lower leg) Neurological: No Dizziness, No Focal Weakness, No Sensory Changes Psychological: No Symptoms Endocrine: No Symptoms All Other Systems: Reviewed and Negative - Past Medical History Pertinent Past Medical History: Yes Neurological History: TIA ENT History: Cataracts Cardiac History: High Cholesterol, Hypertension Respiratory History: Asthma, Bronchitis, Pneumonia Endocrine Medical History: No Pertinent History Musculoskeletal History: Arthritis GI Medical History: Gallbladder Disease, Hemorrhoids, Irritable Bowel History: No Pertinent History Psycho-Social History: Anxiety, Depression Female Reproductive Disorders: Other - Past Surgical History Past Surgical History: Yes Neuro Surgical History: No Pertinent History Cardiac: No Pertinent History Respiratory: No Pertinent History Gastrointestinal: Appendectomy, Cholecystectomy, Hernia Repair Genitourinary: No Pertinent History Musculoskeletal: Orthopedic Surgery Female Surgical History: Hysterectomy Other Surgical History: L KNEE - CORNEAL TRANSPLANTS - CATARACTS BOTH EYES. C5- C6 NECK SURGERY tonsilectomy - Social History Smoking Status: Never smoker How long have you smoked: never Exposure to second hand smoke: No Drug Use: none Patient Lives Alone: No - Nursing Vital Signs Nursing Vital Signs: Initial Vital Signs Temperature 98.1 F 02/09/19 22:14 Pulse Rate 87 02/09/19 22:14 Respiratory Rate 16 02/09/19 22:14 Blood Pressure 160/67 02/09/19 22:14 O2 Sat by Pulse Oximetry 98 02/09/19 22:14 Pain Scale Pain Intensity 8 - Physical Exam General Appearance: mild distress, alert Eyes, Ears, Nose, Throat Exam: moist mucous membranes Neck Exam: non-tender, supple Cardiovascular/Respiratory Exam: chest non-tender, normal breath sounds, regular rate/rhythm, no respiratory distress Gastrointestinal/Abdominal Exam: non-tender, guarding Back Exam: normal inspection, No vertebral tenderness Hips Exam: bilateral: non-tender, normal inspection, normal range of motion, no evidence of injury Legs Exam: right leg: ecchymosis (6 cm ecchymosis right lower leg medially), soft tissue tenderness (ttenderness with palpation right lower leg), left leg: non-tender, normal inspection, no evidence of injury, bilateral leg: normal range of motion Knees Exam: bilateral knee: non-tender, normal inspection, normal range of motion, no evidence of injury Ankle Exam: bilateral ankle: non-tender, normal inspection, normal range of motion, no evidence of injury Foot Exam: bilateral foot: non-tender, normal inspection, normal range of motion , no evidence of injury Neuro/Tendon Exam: normal sensation, normal motor functions Mental Status Exam: alert, oriented x 3, cooperative Skin Exam: ecchymosis (6 cm ecchymosis right lower leg medially) SpO2 Interpretation: normal (98%) SpO2: 98 - Course Nursing assessment & vital signs reviewed: Yes - Radiology Exams Right Lower Leg X-ray Interpretation: Interpreted by me (no fractures, no subluxation) Ordered Tests: Active Orders 24 hr Category Date Time Status Kyle Bandage Application -[facility] STAT Care 02/09/19 23:22 Active LOWER LEG Stat Exams 02/09/19 22:50 Taken Medication Summary Discontinued Medications Generic Name Dose Route Start Last Admin Trade Name Minda PRN Reason Stop Dose Admin Hydrocodone Bitart/Acetaminophen 1 tab 02/09/19 22:49 02/09/19 22:55 [place] 5/325 Mg PO 02/09/19 22:50 1 tab STAT ONE Administration Hydrocodone Bitart/Acetaminophen Confirm 02/09/19 22:55 [place] 5/325 Mg Administered 02/09/19 22:56 Dose 1 tab .ROUTE .STK-MED ONE Hydrocodone Bitart/Acetaminophen 1 tab 02/09/19 23:23 02/09/19 23:31 [place] 5/325 Mg PO 02/09/19 23:24 1 tab SENT HOME W/ PATIENT ONE Administration Hydrocodone Bitart/Acetaminophen Confirm 02/09/19 23:28 [place] 5/325 Mg Administered 02/09/19 23:29 Dose 1 tab .ROUTE .STK-MED ONE - Progress Progress: improved Progress Note: 02/09/19 23:20 X-ray of the patient's right leg: No fracture no subluxation (my read). Patient does have approximately 6 cm bruise on her right anterior lateral distal leg. Will go ahead and apply Kyle wrap. I will write for a small amount of [place] for this patient. I have queried inspect. 02/09/19 23:39 I had consider writing for crutches with weightbearing as tolerated. However patient states that she has a walker at home and will use this. - Departure Departure Disposition: Home Clinical Impression: Contusion of right leg Qualifiers: Encounter type: initial encounter Qualified Code(s): S80.11XA - Contusion of right lower leg, initial encounter Condition: Fair Critical Care Time: No Referrals: BREE PHILLIPS MD [Primary Care Provider] - Instructions: Contusion (DC) Additional Instructions: Return home. Ice to the right leg 24-48 hours. [place] as prescribed. Followup with your family . symptoms are worse, no better in 48 hours, or persist longer than 72 hours. Return for acute distress or for severe symptoms. Prescriptions: Hydrocodone/APAP 5-325 Tab^^^ [[place] 5-325 Tablet^^^] 1 tab PO Q6HPRN PRN #10 tablet MDD 6 PRN Reason: right leg pain
[2019-02-09 23:39] VITALS: BP 113/70; PULSE 83
--- NOTE | 2019-02-10 14:35 | XRAY ---
Indication: Pain and bruising following injury. Comparison: None 2 views of the right lower leg demonstrates tibial tuberosity/patella/calcaneal spurring. No other bony, articular, or soft tissue abnormalities.
== END 2019-02-09 23:46 | disposition home or self-care (01) ==
LOC: ED 21:08
DX: S80.11XA Contusion of right lower leg, initial encounter (principal); W22.8XXA Striking against or struck by other objects, initial encounter; Y93.89 Activity, other specified; E78.5 Hyperlipidemia, unspecified; I10 Essential (primary) hypertension; J45.909 Unspecified asthma, uncomplicated; E78.00 Pure hypercholesterolemia, unspecified; F41.9 Anxiety disorder, unspecified; F32.9 Major depressive disorder, single episode, unspecified; Z86.73 Personal history of transient ischemic attack (TIA), and cerebral infarction without residual deficits; Z79.899 Other long term (current) drug therapy
CPT/HCPCS: 73590; 99284; A9270-GY

== ENCOUNTER 2019-04-28 16:36 | Emergency (ER) | payer MEDICARE, OTHER ==
--- NOTE | 2019-04-28 17:24 | ERPHSYRPT ---
- History of Present Illness Time Seen by Provider: 04/28/19 17:21 Source: patient Exam Limitations: no limitations Patient Subjective Stated Complaint: pt states her right leg went into a hole in her yard, and she fell forward face first.sh co pain to right leg and left elbow, no loc Triage Nursing Assessment: pt alert, walked in limping on right leg, refused wc, resp easy, has skin tear to left elbow, has bruising to left lower leg, Physician History: pt states her right leg went into a hole in her yard, and she fell forward face first.sh co pain to right leg and left elbow, Method of Injury: fell, twisted Occurred: just prior to arrival Quality: constant Lower Extremities Pain: leg: right, knee: left, ankle: right Modifying Factors: Improves With: cold therapy Associated Symptoms: none Body Map: 1 - pain and swelling 2 - pain Allergies/Adverse Reactions: prednisone Allergy (Intermediate, Verified 04/28/19 16:55) lisinopril Allergy (Mild, Verified 04/28/19 16:55) Cough Home Medications: Mvit-Mins/Folic Acid/Soy Isofl [One-A-Day Menopause Formula Tb] 1 each PO DAILY 07/17/15 [History] Albuterol Sulfate [Ventolin Hfa] 18 gm IH Q4H PRN PRN 07/10/17 [History] Cetirizine HCl [Zyrtec] 5 mg PO HS 09/01/18 [History] Losartan/Hydrochlorothiazide [Losartan-Hctz 100-12.5 mg Tab] 1 each PO DAILY [History] Hx Tetanus, Diphtheria Vaccination/Date Given: No Hx Influenza Vaccination/Date Given: No Hx Pneumococcal Vaccination/Date Given: Yes Immunizations Up to Date: Yes - Review of Systems Constitutional: No Symptoms Eyes: No Symptoms Ears, Nose, & Throat: No Symptoms Respiratory: No Symptoms Cardiac: No Symptoms Abdominal/Gastrointestinal: No Symptoms Musculoskeletal: Fall, Joint Pain, Joint Swelling, No Deformity - Past Medical History Pertinent Past Medical History: Yes Neurological History: TIA ENT History: Cataracts Cardiac History: High Cholesterol, Hypertension Respiratory History: Asthma, Bronchitis, Pneumonia Endocrine Medical History: No Pertinent History Musculoskeletal History: Arthritis GI Medical History: Gallbladder Disease, Hemorrhoids, Irritable Bowel History: No Pertinent History Psycho-Social History: Anxiety, Depression Female Reproductive Disorders: Other - Past Surgical History Past Surgical History: Yes Neuro Surgical History: No Pertinent History Cardiac: No Pertinent History Respiratory: No Pertinent History Gastrointestinal: Appendectomy, Cholecystectomy, Hernia Repair Genitourinary: No Pertinent History Musculoskeletal: Orthopedic Surgery Female Surgical History: Hysterectomy Other Surgical History: L KNEE - CORNEAL TRANSPLANTS - CATARACTS BOTH EYES. C5- C6 NECK SURGERY tonsilectomy - Social History Smoking Status: Never smoker How long have you smoked: never Exposure to second hand smoke: No Drug Use: none Patient Lives Alone: No - Female History Hx Last Menstrual Period: post Hx Now: No - Nursing Vital Signs Nursing Vital Signs: Initial Vital Signs Temperature 97.3 F 04/28/19 16:50 Pulse Rate 83 04/28/19 16:50 Respiratory Rate 16 04/28/19 16:50 Blood Pressure 156/72 04/28/19 16:50 O2 Sat by Pulse Oximetry 97 04/28/19 16:50 Pain Scale Pain Intensity 4 - Physical Exam General Appearance: alert Eyes, Ears, Nose, Throat Exam: moist mucous membranes Neck Exam: non-tender, supple Cardiovascular/Respiratory Exam: chest non-tender, normal breath sounds, regular rate/rhythm, no respiratory distress Gastrointestinal/Abdominal Exam: non-tender, guarding Back Exam: normal inspection, No vertebral tenderness Legs Exam: right leg: pain, soft tissue tenderness Knees Exam: left knee: pain Neuro/Tendon Exam: normal sensation, normal motor functions Mental Status Exam: alert, oriented x 3, cooperative Skin Exam: normal color, warm, dry SpO2: 97 - Course Nursing assessment & vital signs reviewed: Yes - Radiology Exams Lower Leg X-ray Interpretation: Reviewed by me, Negative, No Fracture, No Subluxation Knee X-ray Interpretation: Reviewed by me, Negative, No Fracture Ordered Tests: Active Orders 24 hr Category Date Time Status ANKLE (3 VIEWS) Stat Exams 04/28/19 18:19 Taken KNEE (3 VIEWS) Stat Exams 04/28/19 17:07 Taken LOWER LEG Stat Exams 04/28/19 17:07 Taken - Progress Progress: improved, pain not gone completely Counseled pt/family regarding: diagnosis, need for follow-up, rad results - Departure Departure Disposition: Home Clinical Impression: Fall (on)(from) incline, initial encounter Contusion of right leg Qualifiers: Encounter type: initial encounter Qualified Code(s): S80.11XA - Contusion of right lower leg, initial encounter Left knee pain Qualifiers: Chronicity: acute Qualified Code(s): M25.562 - Pain in left knee Condition: Stable Critical Care Time: No Referrals: BREE PHILLIPS MD [Primary Care Provider] - Instructions: Preventing Falls, Contusion (DC) Additional Instructions: SPRAINS/STRAINS/CONTUSIONS 1. Rest the affected area as much as possible for the next few days. 2. Apply ice to the affected area for 20-30 minutes at a time, several times a day. 3. If you receive an elastic wrap, wear it only while awake for comfort and support. Re-wrap the elastic wrap if it feels too tight or too loose. 4. If swelling is present, elevate the affected part above the level of the heart for at least 2 to 3 days. 5. Use splints, slings, or crutches as instructed. 6. Watch for severe swelling, coldness, numbness, and discoloration of the fingers and toes. See your family physician or return to the emergency department if any of these are noted. Discharge/Care Plan NANDO CASE was seen on 04/28/19 in the Emergency Room. The patient was counseled regarding Diagnosis,Lab results, Imaging studies, need for follow up and when to return to the Emergency Room. Prescriptions given: Discharge Note I have spoken with the patient and/or caregivers. I have explained the patient' s condition, diagnosis and treatment plan based on the information available to me at this time. I have answered the patient's and/or caregiver's questions and addressed any concerns. The patient and/or caregivers have as good understanding of the patient's diagnosis, condition and treatment plan as can be expected at this point. The vital signs have been stable. The patient's condition is stable and appropriate for discharge from the emergency department. The patient will pursue further outpatient evaluation with the primary care physician or other designated or consulting physician as outlined in the discharge instructions. The patient and/or caregivers are agreeable to this plan of care and follow-up instructions have been explained in detail. The patient and/or caregivers have received these instruction. The patient/and or caregivers are aware that any significant change in condition or worsening of symptoms should prompt an immediate return to this or the closest emergency department or call 911. NANDO CASE was seen on 04/28/19 n the Emergency Room. At that time you were treated for an emergent condition, during your visit Laboratory, Radiology and/or other procedures may have been ordered. It is very important that you follow-up with your Primary Care Physician BREE PHILLIPS within the next 24- 48 hours to review your Emergency Room visit and the final results of testing that was ordered. Some test results such as Urine Cultures, Blood Cultures, and other cultures if ordered will not be finalized for 24-48 hours. If you do not have a Primary Care Provider please call the medical records department at [phone] ext [phone] to obtain a copy of your results or you may sign into our patient portal to obtain these results by visiting us @ [email or web address] and completing the following steps: 1. Click on the Patient Portal link 2. Click the Patient Self Enrollment Link to complete the enrollment form and entering your 3. Once the enrollment form is completed you will receive an email with a temporary ID and password at the email address you provided. 4. Next choose a user name and password. Your user name must be at least 4 characters long and your password must be at least 4 characters long. 5. Choose a security question from the list and provide your answer to the question. If you already have signed into the Health Portal you may access your Health Care Information 06/02 by the following steps: 1. Login to our website @ [email or web address] 2. Enter your original user name and password. FAQS The [facility] Health Portal is an online tool that contains your Lab Results, Radiology Reports, Visit History, Discharge Instructions and Health Summary Lab and Radiology Results will not be available for 72 hours on the portal. The Portal is a secure site, passwords are encryted and URLs are re-written so they cannot be copied and pasted. You and authorized family members are the only ones who can access your Portal. Also there is a timeout feature that protects your information if you leave the Portal page open. If you have technical difficulty please use the Contact Us link on the page this will allow you to submit any questions you have regarding the Portal or you may contact the Medical Record Department at [phone] ext [phone].
[2019-04-28 17:52] VITALS: BP 138/79
[2019-04-28 18:46] VITALS: PULSE 78; O2SAT 98
--- NOTE | 2019-04-29 08:54 | XRAY ---
Indication: Pain following fall. Comparison: None 3 views of the left knee demonstrate osteopenia, total knee arthroplasty with intact prosthesis/reticulation, and mild vascular calcifications. No other bony, articular, or soft tissue abnormalities.
--- NOTE | 2019-04-29 08:54 | XRAY ---
Indication: Pain following fall. Comparison: None 3 views of the right ankle demonstrates osteopenia, large heel spurs, and plantar aponeurosis calcifications presumed from old injury/inflammation. No other bony, articular, or soft tissue abnormalities.
--- NOTE | 2019-04-29 08:56 | XRAY ---
Indication: Pain following fall. Comparison: February 09, 2019. 2 views of the right lower leg unchanged again demonstrating osteopenia, tibial tuberosity/patella/calcaneal spurring, and minimal vascular calcifications. No new/acute bony, articular, or soft tissue abnormalities.
== END 2019-04-28 18:46 | disposition home or self-care (01) ==
LOC: ED 16:36
DX: S80.11XA Contusion of right lower leg, initial encounter (principal); M25.522 Pain in left elbow; M79.604 Pain in right leg; M25.572 Pain in left ankle and joints of left foot; S80.12XA Contusion of left lower leg, initial encounter; S51.012A Laceration without foreign body of left elbow, initial encounter; W17.2XXA Fall into hole, initial encounter; I10 Essential (primary) hypertension; E78.00 Pure hypercholesterolemia, unspecified
CPT/HCPCS: 73562; 73590; 73610; 99284

== ENCOUNTER 2019-05-10 17:40 | Emergency (ER) | payer MEDICARE, OTHER ==
--- NOTE | 2019-05-10 17:46 | ERPHSYRPT ---
- History of Present Illness Source: patient, family, old records Exam Limitations: no limitations Hx Tetanus, Diphtheria Vaccination/Date Given: No Hx Influenza Vaccination/Date Given: No Hx Pneumococcal Vaccination/Date Given: Yes <CHERELLEALEXANDR KOLBICA - Last Filed: 05/10/19 18:50> <BREE PHILLIPS - Last Filed: 05/10/19 20:45> - History of Present Illness Time Seen by Provider: 05/10/19 17:43 Physician History: PT IS A 73 Y/O WOMAN WHO REPORTS SEVERE THROBBING 10/10 LEFT TEMPORAL CARREON SINCE 0800 AM. STATES SHE WOKE UP WITH IT. HAS TRIED MOTRIN WITHOUT RELIEF. NO HEAD INJURY. FEELS LIKE LUE IS TINGLING X LAST 6 HRS. NO UNILATERAL WEAKNESS/VISUAL CHANGES/DYSARTHRIA/AMS. NO FEVER/CHILLS/DENTALGIA/OTALGIA/SORE THROAT/COUGH/ COLD. + NAUASE NO VOMITING. + PHOTOPHOBIA. NO FHX CEREBRAL ANEURYSM COMPLIANT WITH MEDS. REPORTS A FALL LAST WEEK AND BRUISING TO RIGHT TIB FIB. STATS BRUISES EASILY (AVA YIN) Allergies/Adverse Reactions: prednisone Allergy (Intermediate, Verified 05/10/19 18:02) lisinopril Allergy (Mild, Verified 05/10/19 18:02) Cough Home Medications: Albuterol Sulfate [Ventolin Hfa] 18 gm IH Q4H PRN PRN 07/10/17 [History] Cetirizine HCl [Zyrtec] 5 mg PO HS 09/01/18 [History] Losartan/Hydrochlorothiazide [Losartan-Hctz 100-12.5 mg Tab] 1 each PO DAILY [History] - Review of Systems Constitutional: No Symptoms, No Fever, No Chills, No Fatigue, No Lethargy, No Malaise, No Night Sweats, No Weakness, No Weight Loss Eyes: No Symptoms, Photophobia, No Discharge, No Eye Pain, No Eye Redness, No Itchy, No Tearing, No Vision Changes, No Double Vision, No Foreign Body Sensation Ears, Nose, & Throat: No Symptoms, No Ear Pain, No Ear Discharge, No Hearing Changes, No Tinnitus, No Nose Congestion, No Nose Discharge, No Epistaxis, No Mouth Pain, No Mouth Swelling, No Throat Pain, No Throat Swelling, No Hoarse, No Painful Swallowing, No Stridor Respiratory: No Symptoms, No Cough, No Cyanosis, No Dyspnea, No Dyspnea on Exertion (KONG), No Stridor, No Wheezing Cardiac: No Symptoms, No Chest Pain, No Edema, No Palpitations, No Syncope, No Orthopnea Abdominal/Gastrointestinal: No Symptoms, No Abdominal Pain, No Nausea, No Vomiting, No Diarrhea, No Constipation, No Hematemesis, No Hematochezia, No Melena, No Dysphagia, No Appetite Changes Genitourinary Symptoms: No Symptoms, No Dysuria, No Frequency, No Hematuria, No Hesitancy, No Incontinence, No Urgency, No Urinary Retention, No Flank Pain, No Menorrhagia, No , No Vaginal Bleeding, No Vaginal Discharge Musculoskeletal: No Symptoms, No Arthralgias, No Back Pain, No Neck Pain, No Deformity, No Fall, No Injury, No Joint Redness, No Joint Pain, No Joint Swelling, No Myalgias Skin: No Symptoms, No Cellulitis, No Decubiti, No Induration, No Pruritis, No Rash, No Skin Lesions, No Dryness Neurological: No Symptoms, Headache, No Dizziness, No Focal Weakness, No Gait Changes, No Irritability, No Lethargy, No Paralysis, No Parasthesia, No Seizure , No Sensory Changes, No Speech Changes, No Tics, No Tremors, No Vertigo Psychological: No Symptoms, No Alcohol Abuse, No Drug Abuse, No Anxiety, No Depression, No Suicidal Ideations, No Homicidal Ideations, No Emotional Lability , No Hallucinations, No Memory Loss, No Mood Changes Endocrine: No Symptoms, No Polyuria, No Polydipsia, No Hair Changes, No Cold Intolerance, No Excessive Sweating, No Goiter Hematologic/Lymphatic: No Symptoms, No Anemia, No Blood Clots, No Easy Bleeding , No Gum Bleeding, No Easy Bruising, No Adenopathy Immunological/Allergic: No Symptoms All Other Systems: Reviewed and Negative <AVA YIN - Last Filed: 05/10/19 18:50> - Past Medical History Pertinent Past Medical History: Yes Neurological History: TIA ENT History: Cataracts Cardiac History: High Cholesterol, Hypertension Respiratory History: Asthma, Bronchitis, Pneumonia Endocrine Medical History: No Pertinent History Musculoskeletal History: Arthritis GI Medical History: Gallbladder Disease, Hemorrhoids, Irritable Bowel History: No Pertinent History Psycho-Social History: Anxiety, Depression Female Reproductive Disorders: Other - Past Surgical History Past Surgical History: Yes Neuro Surgical History: No Pertinent History Cardiac: No Pertinent History Respiratory: No Pertinent History Gastrointestinal: Appendectomy, Cholecystectomy, Hernia Repair Genitourinary: No Pertinent History Musculoskeletal: Orthopedic Surgery Female Surgical History: Hysterectomy Other Surgical History: L KNEE - CORNEAL TRANSPLANTS - CATARACTS BOTH EYES. C5- C6 NECK SURGERY tonsilectomy - Social History Smoking Status: Never smoker How long have you smoked: never Exposure to second hand smoke: No Drug Use: none Patient Lives Alone: No <AVA YIN - Last Filed: 05/10/19 18:50> - Physical Exam General Appearance: no apparent distress, alert, other (mild ttp over left mormonism) Eye Exam: PERRL/EOMI, eyes nml inspection, other (fundi normal naima), No scleral icterus, No pale conjunctivae, No photophobia, No EOM palsy/anisocoria Ears, Nose, Throat Exam: normal ENT inspection, TMs normal, pharynx normal, TM abnormal (L), other (uvula midline, floor of mouth soft no sinus ttp), No moist mucous membranes, No dry mucous membranes, No TM abnormal (R), No pharyngeal erythema, No tonsillar exudate Neck Exam: normal inspection, non-tender, supple, full range of motion, No meningismus, No mass, No Brudzinski, No Kernig's, No carotid bruit, No JVD, No limited range of motion, No lymphadenopathy, No subcutaneous emphysema, No midline tenderness, No thyromegaly Respiratory Exam: normal breath sounds, lungs clear, airway intact, No chest tenderness, No respiratory distress, No diminished breath sounds, No accessory muscle use, No prolonged expirations, No crackles/rales, No rhonchi, No wheezing , No stridor, No pleural rub Cardiovascular Exam: normal heart sounds, normal peripheral pulses, capillary refill <2 sec, No murmur, No friction rub, No gallop, No tachycardia, No bradycardia, No irregular, No capillary refill 2-3 sec, No capillary refill >3 sec, No edema, No pulse deficit Gastrointestinal/Abdomen Exam: soft, normal bowel sounds, No tenderness, No distention, No mass, No guarding, No ecchymosis, No pulsatile mass, No rebound, No hernia, No hepatomegaly, No organomegaly, No splenomegaly, No bruit Pelvic Exam: normal external exam Rectal Exam: deferred Back Exam: normal inspection, normal range of motion, other (neg slr naima, no sacral anesthesia, dtr 2/4 naima patella), No CVA tenderness, No vertebral tenderness, No rash, No decreased range of motion, No muscle spasm, No point tenderness Extremity Exam: normal inspection, normal range of motion, pelvis stable, No amputations, No contusions, No calf tenderness, No deformities, No lacerations, No parasthesia, No paralysis, No inflammation, No joint swelling, No limited range of motion, No pedal edema, No swelling, No tenderness Neurologic Exam: alert, oriented x 3, cooperative, radiologic electronic specialist II-XII nml as tested, normal mood/affect, nml cerebellar function, nml station & gait, sensation nml, sensory deficit, No motor deficits, No disoriented, No confusion, No agitation, No uncooperative, No intoxicated appearance, No depressed mood/affect, No motor weakness, No facial droop, No slurred speech, No aphasia, No dysarthria, No abnormal gait, No abnormal cerebellar tests, No abnormal radiologic electronic specialist II-XII, No EOM palsy Skin Exam: normal color, warm, dry, No rash, No petechiae, No jaundice, No abrasion, No cyanosis, No diaphoresis, No decubitus, No embolic lesions, No ecchymosis, No jaundice, No laceration, No mottled, No pale Lymphatic Exam: No adenopathy SpO2 Interpretation: normal O2 Delivery: Room Air <AVA YIN - Last Filed: 05/10/19 18:50> - Nursing Vital Signs Nursing Vital Signs: Initial Vital Signs Temperature 98 F 05/10/19 17:53 Pulse Rate 88 05/10/19 17:53 Respiratory Rate 18 05/10/19 17:53 Blood Pressure 178/82 05/10/19 17:53 O2 Sat by Pulse Oximetry 98 05/10/19 17:53 Pain Scale Pain Intensity 10 - Course Nursing assessment & vital signs reviewed: Yes EKG Interpreted by Me: RATE (71), Sinus Rhythm, A-fib, NORMAL AXIS, NORMAL QRS, NORMAL ST-T <SALAMAN,AVA - Last Filed: 05/10/19 18:50> Ordered Tests: Active Orders 24 hr Category Date Time Status Watch Dial Stoner STAT Care 05/10/19 17:44 Active EKG-ER Only STAT Care 05/10/19 17:59 Active IV Insertion STAT Care 05/10/19 17:44 Active NPO (ED) STAT Care 05/10/19 18:00 Active Pulse Oximetry (ED) STAT Care 05/10/19 17:[address] ANGIOGRAPHY NECK [CT] Stat Exams 05/10/19 17:57 Ordered CTA HEAD W AND/OR WO CONTRAST [CT] Stat Exams 05/10/19 17:57 Ordered HEAD WITHOUT CONTRAST [CT] Stat Exams 05/10/19 17:45 Taken CBC W DIFF Stat Lab 05/10/19 18:00 Completed CMP Stat Lab 05/10/19 18:00 Completed CULTURE,URINE Stat Lab 05/10/19 19:06 Received Erythrocyte Sedimentation Rate Stat Lab 05/10/19 18:00 Completed Manual Differential NC Stat Lab 05/10/19 18:00 Completed UA W/RFX UR CULTURE Stat Lab 05/10/19 19:06 Completed Medication Summary Discontinued Medications Generic Name Dose Route Start Last Admin Trade Name Freq PRN Reason Stop Dose Admin Dexamethasone Sodium Phosphate 10 mg 05/10/19 17:55 05/10/19 18:02 Decadron 10mg Inj. IV 05/10/19 17:56 10 mg STAT ONE Administration Dexamethasone Sodium Phosphate Confirm 05/10/19 18:01 Decadron 10mg Inj. Administered 05/10/19 18:02 Dose 10 mg .ROUTE .STK-MED ONE Sodium Chloride 1,000 mls @ 999 mls/hr 05/10/19 17:57 05/10/19 18:03 Sodium Chloride 0.9% 1000 Ml IV 05/10/19 18:57 999 mls/hr .Q1H1M STA Administration Sodium Chloride Confirm 05/10/19 18:01 Sodium Chloride 0.9% 1000 Ml Administered 05/10/19 18:02 Dose 1,000 mls @ ud .ROUTE .STK-MED ONE Sodium Chloride 1,000 mls @ 999 mls/hr 05/10/19 18:07 05/10/19 20:23 Sodium Chloride 0.9% 1000 Ml IV 05/10/19 19:07 999 mls/hr .Q1H1M STA Administration Sodium Chloride Confirm 05/10/19 19:04 Sodium Chloride 0.9% 1000 Ml Administered 05/10/19 19:05 Dose 1,000 mls @ ud .ROUTE .K-MED ONE Metoclopramide HCl 10 mg 05/10/19 19:55 05/10/19 20:24 Reglan 10 Mg/2 Ml IV 05/10/19 19:56 10 mg STAT ONE Administration Metoclopramide HCl Confirm 05/10/19 20:24 Reglan 10 Mg/2 Ml Administered 05/10/19 20:25 Dose 10 mg .ROUTE .STK-[facility] ONE Lab/Rad Data: Laboratory Result Diagrams 05/10/19 18:00 05/10/19 18:00 Laboratory Results 05/10/19 05/10/19 05/10/19 Range/Units 19:06 18:00 18:00 WBC 10.3 (4.0-10.5) K/mm3 RBC 4.60 (4.1-5.4) M/mm3 Hgb 14.0 (12.0-16.0) gm/dl Hct 43.7 (35-47) % MCV 95.0 (78-100) fl MCH 30.4 (26-32) pg MCHC 32.0 (32-36) g/dl RDW 14.8 H (11.5-14.0) % Plt Count 249 (150-450) K/mm3 MPV 10.4 H (6-9.5) fl Absolute Granulocytes 6.82 (1.4-6.9) ESR 18 (0-20) mm/hr Sodium 143 (137-145) mmol/L Potassium 3.9 (3.5-5.1) mmol/L Chloride 103 (98-107) mmol/L Carbon Dioxide 32 H (22-30) mmol/L Anion Gap 11.4 (5-15) MEQ/L BUN 21 H (7-17) mg/dL Creatinine 0.96 (0.52-1.04) mg/dL Estimated GFR > 60.0 ML/MIN Glucose 106 (74-106) mg/dL Calcium 9.2 (8.4-10.2) mg/dL Total Bilirubin 0.60 (0.2-1.3) mg/dL AST 19 (14-36) U/L ALT 17 (0-35) U/L Alkaline Phosphatase 73 (38-126) U/L Serum Total Protein 7.0 (6.3-8.2) g/dL Albumin 3.9 (3.5-5.0) g/dL Urine Color STRAW (YELLOW) Urine Appearance CLEAR (CLEAR) Urine pH 6.0 (5-6) Ur Specific [place] 1.008 (1.005-1.025) Urine Protein NEGATIVE (Negative) Urine Ketones NEGATIVE (NEGATIVE) Urine Blood NEGATIVE (0-5) [place]/ul Urine Nitrite NEGATIVE (NEGATIVE) Urine Bilirubin NEGATIVE (NEGATIVE) Urine Urobilinogen NEGATIVE (0-1) mg/dL Ur Leukocyte Esterase SMALL (NEGATIVE) Urine WBC (Auto) 6-10 (0-5) /HPF Urine RBC (Auto) NONE (0-2) /HPF U Epithel Cells (Auto) NONE (FEW) /HPF Urine Bacteria (Auto) NONE (NEGATIVE) /HPF Urine Mucus (Auto) SLIGHT (NEGATIVE) /HPF Urine Culture Reflexed YES (NO) Urine Glucose NEGATIVE (NEGATIVE) mg/dL - Progress Progress: improved Counseled pt/family regarding: drug and/or alcohol abuse, lab results, diagnosis , need for follow-up, rad results, smoking cessation <AVA YIN - Last Filed: 05/10/19 18:50> <BREE PHILLIPS - Last Filed: 05/10/19 20:45> - Progress Progress Note: 05/10/19 18:02 BC PT IS > 67 REPORTS WORST CARREON OF LIFE WILL CT/CTA. OUT OF WINDOW FOR TPA IF ACUTE CVA. PT REPORTS JITTERS IF SHE TAKES ORAL PREDNISONE CAN TOLERATE IV. 05/10/19 18:51 CT HEAD READ BY DR. PALLAVI GARDNER NAD FOR HEMORHAGE, EDEMA, MASS EFFECT. I CALLED TO SPEAK WITH HIM AT [facility] ? ASSYMETRY IN FRONTAL LOBE SUBTLE FINDING? HE STATES THESE ARE LIKELY JUST CHRONIC ISCHEMIC CHANGES 05/10/19 18:57 WILL CHECK ANGIO. 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 The patient was counseled regarding Diagnosis,Lab results, Imaging studies, need for follow up and when to return to the Emergency Room. Prescriptions given: Discharge Note I have spoken with the patient and/or caregivers. I have explained the patient' s condition, diagnosis and treatment plan based on the information available to me at this time. I have answered the patient's and/or caregiver's questions and addressed any concerns. The patient and/or caregivers have as good understanding of the patient's diagnosis, condition and treatment plan as can be expected at this point. The vital signs have been stable. The patient's condition is stable and appropriate for discharge from the emergency department. The patient will pursue further outpatient evaluation with the primary care physician or other designated or consulting physician as outlined in the discharge instructions. The patient and/or caregivers are agreeable to this plan of care and follow-up instructions have been explained in detail. The patient and/or caregivers have received these instruction. The patient/and or caregivers are aware that any significant change in condition or worsening of symptoms should prompt an immediate return to this or the closest emergency department or call 911. Prescriptions: SUMAtriptan succinate [Imitrex 50 mg] 50 mg PO UD #5 tablet
[2019-05-10] MEDS ORDERED: DECADRON 10MG INJ. IV ONE (17:55)
[2019-05-10] MEDS ORDERED: Sodium Chloride 0.9% 1000 ML 1,000 ML IV STA ×2 (17:57→18:07)
[2019-05-10] MEDS ORDERED: Sodium Chloride 0.9% 1000 ML 1,000 ML ONE ×2 (18:01→19:04)
[2019-05-10] MEDS ORDERED: DECADRON 10MG INJ. ONE (18:01)
[2019-05-10 18:02] LABS: Absolute Neutrophil Ct (ANC) 6.82 (1.4-6.9); Hematocrit 43.7 % (35-47); Mean Corpuscular Hemoglobin 30.4 pg (26-32); Mean Platelet Volume 10.4 fl (6-9.5); Platelet Count 249 K/mm3 (150-450); Red Cell Distribution Width 14.8 % (11.5-14.0); White Blood Count 10.3 K/mm3 (4.0-10.5)
[2019-05-10 18:06] VITALS: BP 178/82; PULSE 88; O2SAT 100
[2019-05-10 18:30] LABS: ALBUMIN 3.9 g/dL (3.5-5.0); ALKALINE PHOSPHATASE 73 U/L (38-126); ANION GAP 11.4 MEQ/L (5-15); BLOOD UREA NITROGEN 21 mg/dL (7-17); CHLORIDE 103 mmol/L (98-107); Calcium 9.2 mg/dL (8.4-10.2); Carbon Dioxide 32 mmol/L (22-30); Creatinine 1 0.96 mg/dL (0.52-1.04); Glucose 106 mg/dL (74-106); Potassium 3.9 mmol/L (3.5-5.1); SGOT/AST 19 U/L (14-36); SGPT/ALT 17 U/L (0-35); SODIUM 143 mmol/L (137-145)
[2019-05-10 18:32] LABS: Erythrocyte Sedimentation Rate 18 mm/hr (0-20)
[2019-05-10 19:26] LABS: Appearance CLEAR (CLEAR); Bilirubin NEGATIVE (NEGATIVE); Blood NEGATIVE Ery/ul (0-5); Glucose NEGATIVE (NEGATIVE); Ketones NEGATIVE (NEGATIVE); Leukocyte Esterase SMALL (NEGATIVE); Mucus SLIGHT /HPF (NEGATIVE); Nitrite NEGATIVE (NEGATIVE); Protein,Urine Dip NEGATIVE (Negative); Specific Gravity 1.008 (1.005-1.025); Urobilinogen NEGATIVE mg/dL (0-1)
[2019-05-10] MEDS ORDERED: Reglan 10 MG/2 ML IV ONE (19:55)
[2019-05-10] MEDS ORDERED: Reglan 10 MG/2 ML ONE (20:24)
[2019-05-10 22:58] LABS: Eosinophil 1 % (0.00-3.0); Lymphocytes 25 % (24-44); Monocyte 6 % (0.0-12.0); Neutrophils 68 % (36.0-66.0); Platelet Estimate NORMAL (NORMAL); Total Cells Counted 100
--- NOTE | 2019-05-11 07:37 | XRAY ---
Indication: Left temporal headache. Multiple contiguous axial images obtained through the head without contrast. Comparison: February 24, 2014. There is age-appropriate global atrophy and minimal periventricular degenerative micro-ischemia bilaterally. No acute intracranial hemorrhage, abnormal extra-axial fluid collection, or mass effect. Fourth ventricle is midline without hydrocephalus. Story-white matter differentiation preserved. Bony calvarium intact. Visualized paranasal sinuses and mastoid air cells are clear. Impression: Normal aging brain including atrophy and degenerative micro-ischemia. No acute intracranial abnormalities. Comment: Preliminary interpretation was made by [facility]. No critical discrepancy. CTDI 63.90
--- NOTE | 2019-05-11 07:42 | XRAY ---
Indication: Left temporal headache. History TIAs. Conventional contrast enhanced CTA neck was performed using 80 cc Isovue 370 contrast. Two-dimensional sagittal and coronal reformatted images obtained.. Comparison: None Visualized aortic arch demonstrates normal patent branching right brachiocephalic, left common carotid, and left subclavian arteries without focal abnormality. Examination of the right carotid circulation demonstrates widely patent common carotid artery. At the level of bulb, there is minimal calcified plaquing without critical stenosis/obstruction. Remaining visualized internal and external carotid arteries are normal in CTA appearance. Examination of the left carotid circulation demonstrates normal widely patent common carotid, carotid bulb, internal carotid, and external carotid arteries. Examination of the posterior circulation demonstrates bilaterally symmetric vertebral arteries without critical stenosis, obstruction, or AV malformation. Visualized noncontrasted soft tissues unremarkable. Cervical spine intact with C5-C6 fusion surgery with intact anterior plate/screws/spacer. Impression: 1. Minimal right carotid bulb calcifications without critical stenosis/obstruction. 2. Remaining CTA neck is negative. 3. Incidental C5-C6 fusion surgery. Comment: Preliminary interpretation was made by [facility]. No critical discrepancy. CTDI 22.48
--- NOTE | 2019-05-11 07:47 | XRAY ---
Indication: Left temporal headache. History TIAs. Conventional contrast enhanced CTA head was performed using 80 cc Isovue 370 contrast. Two-dimensional sagittal and coronal reformatted images obtained.. Comparison: None Distal internal carotid arteries are bilaterally symmetric with mild calcifications of the parasellar segments. No critical stenosis, position, or AV malformation. Normal carotid terminus with normal branching A1 and M1 segments bilaterally. More distal anterior cerebral, middle cerebral, and anterior communicating arteries are normal in CTA appearance. Posterior communicating arteries not clearly identified. Examination of the posterior circulation demonstrates normal CTA appearance of the distal vertebral and basilar arteries with normal branching superior cerebellar and posterior inferior cerebellar arteries. Basilar tip unremarkable with normal appearing posterior cerebral arteries bilaterally. Remaining brain images are negative for abnormal enhancing intra-or extra-axial mass. Venous drainage/sinuses including jugular veins are unremarkable. Impression: Negative CTA brain. Comment: Preliminary interpretation was made by [facility]. No critical discrepancy. CTDI 22.48
== END 2019-05-10 21:30 | disposition home or self-care (01) ==
LOC: ED 17:40
DX: G44.51 Hemicrania continua (principal); Z79.899 Other long term (current) drug therapy
CPT/HCPCS: 36000; 36415; 70450; 70496; 70498; 80053; 81001; 85025; 85652; 87086; 93005; 93041; 94760; 96374; 96375; 99284; J1100

== ENCOUNTER 2022-09-13 15:57 | Inpatient (IN) | payer MEDICARE, OTHER ==
[2022-09-13] MEDS ORDERED: PROVENTIL 2.5 MG/3 ML NEB IH ONE (16:49)
[2022-09-13] MEDS ORDERED: PROVENTIL 2.5 MG/3 ML NEB IH PRN (16:54)
[2022-09-13] MEDS: PROVENTIL 2.5 MG/3 ML NEB IH SCH (16:56)
[2022-09-13 17:23] LABS: Hematocrit 39.1 % (35-47); Hemoglobin 12.2 g/dL (12.0-16.0); Mean Cell Volume 91.4 fL (78-100); Mean Corpuscular Hemoglobin 28.5 pg (26-32); Mean Corpuscular Hgb Concent. 31.2 g/dL (32-36); Mean Platelet Volume 10.4 fL (7.5-11.0); Platelet Count 168 x10^3/uL (150-450); Red Blood Count 4.28 x10^6/uL (4.1-5.4); Red Cell Distribution Width 12.3 % (11.5-14.0); White Blood Count 6.7 x10^3/uL (4.0-10.5)
[2022-09-13 17:36] LABS: ALBUMIN 3.6 g/dL (3.5-5.0); ALKALINE PHOSPHATASE 93 U/L (38-126); ANION GAP 8.3 MEQ/L (5-15); BLOOD UREA NITROGEN 12 mg/dL (7-17); CHLORIDE 105 mmol/L (98-107); Calcium 8.5 mg/dL (8.4-10.2); Carbon Dioxide 32 mmol/L (22-30); Creatinine 1 0.73 mg/dL (0.52-1.04); EST GLOMERULAR FILTRATION RATE > 60.0 ML/MIN; Glucose 95 mg/dL (74-106); Potassium 3.7 mmol/L (3.5-5.1); SGOT/AST 19 U/L (14-36); SGPT/ALT 12 U/L (0-35); SODIUM 141 mmol/L (137-145); Total Protein 6.7 g/dL (6.3-8.2)
[2022-09-13 18:01] LABS: INFLUENZA A NEGATIVE (NEGATIVE); INFLUENZA B NEGATIVE (NEGATIVE); RESPIRATORY SYNCTIAL VIRUS NEGATIVE (Negative); SARS-CoV-2 Xpert Express NEGATIVE (NEGATIVE)
[2022-09-13] MEDS ORDERED: solu-MEDROL ONE (19:46)
[2022-09-13] MEDS ORDERED: ROCEPHIN 1 Gm-D5w 50 ml Bag** 1 G/50 ML IVPB IV SCH (20:00)
[2022-09-13] MEDS: Sodium Chloride 0.9% 1000 ML 1,000 ML IV SCH (20:24)
[2022-09-13] MEDS ORDERED: Sterile H2O 10 ml IJ ONE (20:56)
[2022-09-13] MEDS: solu-MEDROL 40 MG, Sterile H2O 10 ml 1 ML IV SCH ×2 (21:35)
[2022-09-13] MEDS: Neurontin PO SCH (21:36)
[2022-09-13] MEDS: CLARITIN 10 MG PO SCH (21:36)
[2022-09-13] MEDS ORDERED: Ditropan 5 MG PO SCH (22:00)
[2022-09-13] MEDS ORDERED: Valium 5 MG PO SCH (22:00)
[2022-09-14] MEDS: PROVENTIL 2.5 MG/3 ML NEB IH SCH ×4 (00:50→19:10)
[2022-09-14 04:51] LABS: Hematocrit 36.8 % (35-47); Hemoglobin 11.6 g/dL (12.0-16.0); Mean Cell Volume 91.8 fL (78-100); Mean Corpuscular Hemoglobin 28.9 pg (26-32); Mean Corpuscular Hgb Concent. 31.5 g/dL (32-36); Mean Platelet Volume 10.3 fL (7.5-11.0); Platelet Count 179 x10^3/uL (150-450); Red Blood Count 4.01 x10^6/uL (4.1-5.4); Red Cell Distribution Width 12.5 % (11.5-14.0); White Blood Count 5.2 x10^3/uL (4.0-10.5)
[2022-09-14 05:20] LABS: ALBUMIN 3.4 g/dL (3.5-5.0); ALKALINE PHOSPHATASE 81 U/L (38-126); ANION GAP 12.4 MEQ/L (5-15); BLOOD UREA NITROGEN 12 mg/dL (7-17); CHLORIDE 103 mmol/L (98-107); Calcium 8.4 mg/dL (8.4-10.2); Carbon Dioxide 30 mmol/L (22-30); Creatinine 1 0.73 mg/dL (0.52-1.04); EST GLOMERULAR FILTRATION RATE > 60.0 ML/MIN; Glucose 174 mg/dL (74-106); Potassium 3.8 mmol/L (3.5-5.1); SGOT/AST 19 U/L (14-36); SGPT/ALT 15 U/L (0-35); SODIUM 142 mmol/L (137-145); Total Protein 6.3 g/dL (6.3-8.2)
[2022-09-14] MEDS ORDERED: solu-MEDROL ONE (05:45)
[2022-09-14] MEDS: solu-MEDROL 40 MG, Sterile H2O 10 ml 1 ML IV SCH ×6 (05:49→21:13)
[2022-09-14] MEDS ORDERED: VENTOLIN COMMON CANISTER IH PRN (06:58)
--- NOTE | 2022-09-14 07:53 | PCM.HP.ADD ---
Addendum to History & Physical - History & Physical Addendum Addendum to History & Physical: This certifies that the History & Physical in the electronic chart reflects the current health status of the patient. If there are changes in the H&P these changes/exceptions are listed as follows.
--- NOTE | 2022-09-14 07:55 | PCM.NOTE ---
Date and Time: 09/14/22 0753 Subjective Assessment: still short of breath - Review of Systems Constitutional: No Fever, No Chills Eyes: No Symptoms Ears, Nose, & Throat: No Symptoms Respiratory: Cough, Orthopnea, Short Of Breath, Wheezing Cardiac: No Chest Pain, No Edema, No Syncope Abdominal/Gastrointestinal: No Abdominal Pain, No Nausea, No Vomiting, No Diarrhea Genitourinary Symptoms: No Dysuria Musculoskeletal: No Back Pain, No Neck Pain Skin: No Rash Neurological: No Dizziness, No Focal Weakness, No Sensory Changes Psychological: No Symptoms Endocrine: No Symptoms Hematologic/Lymphatic: No Symptoms Immunological/Allergic: No Symptoms Objective Exam General Appearance: no apparent distress, alert Neurologic Exam: alert, oriented x 3, cooperative, normal mood/affect, nml cerebellar function, sensation nml, No motor deficits Skin Exam: normal color, warm, dry Eye Exam: PERRL, EOMI, eyes nml inspection Ears, Nose, Throat Exam: normal ENT inspection, pharynx normal, moist mucous membranes Neck Exam: normal inspection, non-tender, supple, full range of motion Respiratory Exam: diminished breath sounds, crackles/rales, rhonchi, wheezing, No respiratory distress Cardiovascular Exam: regular rate/rhythm, normal heart sounds Gastrointestinal/Abdomen Exam: soft, No tenderness, No mass Extremity Exam: normal inspection, normal range of motion Back Exam: normal inspection, normal range of motion, No CVA tenderness, No vertebral tenderness Pelvic Exam: deferred Rectal Exam: deferred OBJECTIVE DATA Vital Signs: Vital Signs - 24 hr Temp Pulse Resp BP Pulse Ox 09/14/22 06:48 96.8 F 62 17 131/60 98 09/14/22 04:39 97.9 F 82 17 128/59 09/14/22 00:50 80 20 94 L 09/13/22 23:28 97.9 F 77 22 112/58 98 09/13/22 22:15 80 20 97 09/13/22 19:39 97.5 F 90 20 128/60 98 09/13/22 17:15 86 20 99 09/13/22 16:57 97.9 F 77 20 144/75 91 L 09/13/22 16:56 74 22 99 09/13/22 16:53 97.9 F 77 20 144/75 91 L 09/13/22 16:52 97.9 F 80 20 144/75 91 L Pain Assessment - Last Documented Pain Intensity 0 Intake and Output: Intake & Output 09/11/22 09/12/22 09/13/22 09/14/22 11:59 11:59 11:59 11:59 Intake Total 1142 Balance 1142 Weight 103.2 kg Lab Results: Lab Results-Last 24 Hours 09/13/22 09/13/22 09/13/22 Range/Units 17:05 17:05 17:05 WBC 6.7 (4.0-10.5) x10^3/uL RBC 4.28 (4.1-5.4) x10^6/uL Hgb 12.2 (12.0-16.0) g/dL Hct 39.1 (35-47) % MCV 91.4 (78-100) fL MCH 28.5 (26-32) pg MCHC 31.2 L (32-36) g/dL RDW 12.3 (11.5-14.0) % Plt Count 168 (150-450) x10^3/uL MPV 10.4 (7.5-11.0) fL Sodium 141 (137-145) mmol/L Potassium 3.7 (3.5-5.1) mmol/L Chloride 105 (98-107) mmol/L Carbon Dioxide 32 H (22-30) mmol/L Anion Gap 8.3 (5-15) MEQ/L BUN 12 (7-17) mg/dL Creatinine 0.73 (0.52-1.04) mg/dL Estimated GFR > 60.0 ML/MIN Glucose 95 (74-106) mg/dL Calcium 8.5 (8.4-10.2) mg/dL Total Bilirubin 0.60 (0.2-1.3) mg/dL AST 19 (14-36) U/L ALT 12 (0-35) U/L Alkaline Phosphatase 93 (38-126) U/L Serum Total Protein 6.7 (6.3-8.2) g/dL Albumin 3.6 (3.5-5.0) g/dL Influenza Type A Ag NEGATIVE (NEGATIVE) Influenza Type B Ag NEGATIVE (NEGATIVE) RSV (PCR) NEGATIVE (Negative) SARS-CoV-2 (PCR) NEGATIVE (NEGATIVE) 09/14/22 09/14/22 Range/Units 04:51 04:51 WBC 5.2 (4.0-10.5) x10^3/uL RBC 4.01 L (4.1-5.4) x10^6/uL Hgb 11.6 L (12.0-16.0) g/dL Hct 36.8 (35-47) % MCV 91.8 (78-100) fL MCH 28.9 (26-32) pg MCHC 31.5 L (32-36) g/dL RDW 12.5 (11.5-14.0) % Plt Count 179 (150-450) x10^3/uL MPV 10.3 (7.5-11.0) fL Sodium 142 (137-145) mmol/L Potassium 3.8 (3.5-5.1) mmol/L Chloride 103 (98-107) mmol/L Carbon Dioxide 30 (22-30) mmol/L Anion Gap 12.4 (5-15) MEQ/L BUN 12 (7-17) mg/dL Creatinine 0.73 (0.52-1.04) mg/dL Estimated GFR > 60.0 ML/MIN Glucose 174 H (74-106) mg/dL Calcium 8.4 (8.4-10.2) mg/dL Total Bilirubin 0.30 (0.2-1.3) mg/dL AST 19 (14-36) U/L ALT 15 (0-35) U/L Alkaline Phosphatase 81 (38-126) U/L Serum Total Protein 6.3 (6.3-8.2) g/dL Albumin 3.4 L (3.5-5.0) g/dL Influenza Type A Ag (NEGATIVE) Influenza Type B Ag (NEGATIVE) RSV (PCR) (Negative) SARS-CoV-2 (PCR) (NEGATIVE) Radiology Exams: Radiology Procedures Category Date Time Status CHEST 1 VIEW (PORTABLE) Urgent Exams 09/13/22 17:02 Taken Assessment/Plan (1) Acute exacerbation of COPD with asthma Current Visit: Yes Status: Acute Assessment & Plan: Chief Complaint Diagnosis EXACERBATION OF ASTHMA Allergies Allergy/AdvReac Type Severity Reaction Status Date / Time prednisone Allergy Intermediate Verified 09/13/22 17:23 lisinopril Allergy Mild Cough Verified 09/13/22 17:23 Vital Signs (Last 24 hours) Temp Pulse Resp BP Pulse Ox 09/14/22 06:48 96.8 F 62 17 131/60 98 09/14/22 04:39 97.9 F 82 17 128/59 09/14/22 00:50 80 20 94 L 09/13/22 23:28 97.9 F 77 22 112/58 98 09/13/22 22:15 80 20 97 09/13/22 19:39 97.5 F 90 20 128/60 98 09/13/22 17:15 86 20 99 09/13/22 16:57 97.9 F 77 20 144/75 91 L 09/13/22 16:56 74 22 99 09/13/22 16:53 97.9 F 77 20 144/75 91 L 09/13/22 16:52 97.9 F 80 20 144/75 91 L Home Medications Medication Instructions Recorded Confirmed Last Taken Type Diazepam 5 mg [Valium 5 MG] 5 mg PO 09/13/22 09/13/22 09/12/22 History Escitalopram Oxalate [Lexapro] 10 mg PO DAILY 09/13/22 09/13/22 09/13/22 08:00 History Gabapentin [Neurontin ] 400 mg PO TID 09/13/22 09/13/22 09/13/22 08:00 History Hydrochlorothiazide 25 mg 12.5 mg PO DAILY 09/13/22 09/13/22 09/13/22 08:00 History [hydroDIURIL 25 MG] Losartan Potassium 50 mg 50 mg PO DAILY 09/13/22 09/13/22 09/13/22 08:00 Hist ory [Cozaar 50 MG] Oxybutynin Chloride [Oxybutynin 15 mg PO 09/13/22 09/13/22 09/12/22 History Chloride ER] Current Medications Generic Name Dose Route Start Last Admin Trade Name Freq PRN Reason Stop Dose Admin Albuterol Sulfate 2.5 mg 09/13/22 19:00 09/14/22 00:50 Albuterol Sulfate 2.5 Mg/3 Ml [facility] 10/13/22 18:59 2.5 mg Q6HRT JOHNNA Administration Albuterol Sulfate 2.5 mg 09/13/22 16:54 Albuterol Sulfate 2.5 Mg/3 Ml [facility] 10/13/22 16:53 Q4H PRN PRN SHORTNESS OF BREATH/WHEEZING Albuterol Sulfate 2 puff 09/14/22 06:58 Albuterol Common Canister Inhaler 10/14/22 06:57 Q4H PRN PRN SHORTNESS OF BREATH Methylprednisolone Sodium 0 mg 09/13/22 22:00 09/14/22 05:49 Succinate 40 mg/ Sterile Water IV 10/13/22 21:59 40 mg 1 ml Q8HT JOHNNA Administration Diazepam 5 mg 09/13/22 22:00 09/13/22 21:36 Diazepam 5 Mg Tablet PO 10/13/22 21:59 5 mg HS JOHNNA Administration Escitalopram Oxalate 10 mg 09/14/22 10:00 Escitalopram Oxalate 10 Mg Tablet PO 10/14/22 09:59 DAILY JOHNNA Gabapentin 400 mg 09/13/22 22:00 09/13/22 21:36 Gabapentin 400 Mg Capsule PO 10/13/22 21:59 400 mg TID JOHNNA Administration Hydrochlorothiazide 12.5 mg 09/14/22 10:00 Hydrochlorothiazide 25 Mg Tablet PO 10/14/22 09:59 DAILY JOHNNA Sodium Chloride 1,000 mls @ 50 mls/hr 09/13/22 19:15 09/13/22 20:24 Sodium Chloride 0.9% 1000 Ml IV 10/13/22 19:14 50 mls/hr .Q20H JOHNNA Administration Ceftriaxone Sodium/Dextrose 1 g in 50 mls @ 100 mls/hr 09/14/22 22:00 Rocephin 1 Gm-D5w 50 Ml Bag IV 09/17/22 21:59 Q24H22 JOHNNA Loratadine 10 mg 09/13/22 22:00 09/13/22 21:36 Loratadine 10 Mg Tablet PO 10/13/22 21:59 10 mg HS JOHNNA Administration Losartan Potassium 50 mg 09/14/22 10:00 Losartan Potassium 50 Mg Tablet PO 10/14/22 09:59 DAILY JOHNNA Oxybutynin Chloride 15 mg 09/14/22 22:00 Oxybutynin Chloride Xl 5 Mg Tab PO 10/14/22 21:59 HS JOHNNA Discontinued Medications Generic Name Dose Route Start Last Admin Trade Name Freq PRN Reason Stop Dose Admin Albuterol Sulfate Confirm 09/13/22 16:49 Albuterol Sulfate 2.5 Mg/3 Ml Neb Administered 09/13/22 16:50 Dose 2.5 mg IH .STK-MED ONE Ceftriaxone Sodium/Dextrose 1 g in 50 mls @ 100 mls/hr 09/13/22 20:00 09/13/22 20:25 Rocephin 1 Gm-D5w 50 Ml Bag IV 09/16/22 19:59 100 mls/hr Q24H10 JOHNNA Administration Methylprednisolone Sodium Succinate Confirm 09/13/22 19:46 Methylprednisolone Sod Suc 40m 40 Mg/Ml Vial Administered 09/13/22 19:47 Dose 40 mg .ROUTE .STK-MED ONE Methylprednisolone Sodium Succinate Confirm 09/14/22 05:45 Methylprednisolone Sod Suc 40m 40 Mg/Ml Vial Administered 09/14/22 05:46 Dose 40 mg .ROUTE .STK-MED ONE Oxybutynin Chloride 15 mg 09/13/22 22:00 09/13/22 21:36 Oxybutynin Chloride 5 Mg Tablet PO 10/13/22 21:59 15 mg HS JOHNNA Administration Sterile Water Confirm 09/13/22 20:56 Water For Injection,Sterile 10 Ml Vial Administered 09/13/22 20:57 Dose 10 ml IJ .STK-MED ONE Intake & Output (Last 24 hours) 09/11/22 09/12/22 09/13/22 09/14/22 11:59 11:59 11:59 11:59 Intake Total 1142 Balance 1142 Weight 103.2 kg Laboratory Results (Last 24 hours) 09/14/22 09/14/22 09/13/22 04:51 04:51 17:05 WBC 5.2 RBC 4.01 L Hgb 11.6 L Hct 36.8 MCV 91.8 MCH 28.9 MCHC 31.5 L RDW 12.5 Plt Count 179 MPV 10.3 Sodium 142 Potassium 3.8 Chloride 103 Carbon Dioxide 30 Anion Gap 12.4 BUN 12 Creatinine 0.73 Estimated GFR > 60.0 Glucose 174 H Calcium 8.4 Total Bilirubin 0.30 AST 19 ALT 15 Alkaline Phosphatase 81 Serum Total Protein 6.3 Albumin 3.4 L Influenza Type A Ag NEGATIVE Influenza Type B Ag NEGATIVE RSV (PCR) NEGATIVE SARS-CoV-2 (PCR) NEGATIVE 09/13/22 09/13/22 17:05 17:05 WBC 6.7 RBC 4.28 Hgb 12.2 Hct 39.1 MCV 91.4 MCH 28.5 MCHC 31.2 L RDW 12.3 Plt Count 168 MPV 10.4 Sodium 141 Potassium 3.7 Chloride 105 Carbon Dioxide 32 H Anion Gap 8.3 BUN 12 Creatinine 0.73 Estimated GFR > 60.0 Glucose 95 Calcium 8.5 Total Bilirubin 0.60 AST 19 ALT 12 Alkaline Phosphatase 93 Serum Total Protein 6.7 Albumin 3.6 Influenza Type A Ag Influenza Type B Ag RSV (PCR) SARS-CoV-2 (PCR) Orders (Last 24 hours) Category Date Time Status Bedrest with BRP/BSC TOLERATED Activity 09/13/22 17:21 Active Up With Assistance TOLERATED Activity 09/13/22 17:21 Active Observation [Place in Observation] ROUTINE Care 09/13/22 18:26 Active House Regular Diet Diet 09/13/22 Dinner Active CHEST 1 VIEW (PORTABLE) Urgent Exams 09/13/22 17:02 Taken CBC AM.LAB Lab 09/14/22 04:51 Completed CBC Routine Lab 09/13/22 17:05 Completed CMP AM.LAB Lab 09/14/22 04:51 Completed CMP Routine Lab 09/13/22 17:05 Completed COVID/FLU/RSV Panel Stat Lab 09/13/22 17:05 Completed Albuterol 2.5 mg/3 ml Neb [Proventil 2.5 mg/3 ml Neb Med 09/13/22 16:49 Discontinued ] 2.5 mg IH .STK-MED ONE Albuterol 2.5 mg/3 ml Neb [Proventil 2.5 mg/3 ml Neb Med 09/13/22 16:54 Active ] 2.5 mg IH Q4H PRN PRN Albuterol 2.5 mg/3 ml Neb [Proventil 2.5 mg/3 ml Neb Med 09/13/22 19:00 Active ] 2.5 mg IH Q6HRT Albuterol Common Canister [Ventolin Common Canister* Med 09/14/22 06:58 Active ] 2 puff IH Q4H PRN PRN Ceftriaxone 1 GM/50 ML PREMIX* [ROCEPHIN 1 Gm-D5w 50 ml Med 09/13/22 20:00 Discontinued Bag] 1 g in 50 ml IV Q24H10 Ceftriaxone 1 GM/50 ML PREMIX* [ROCEPHIN 1 Gm-D5w 50 ml Med 09/14/22 22:00 Active Bag] 1 g in 50 ml IV Q24H22 Diazepam 5 mg [Valium 5 MG] Med 09/13/22 22:00 Active 5 mg PO HS Escitalopram Oxalate [Lexapro] Med 09/14/22 10:00 Active 10 mg PO DAILY Gabapentin [Neurontin ] Med 09/13/22 22:00 Active 400 mg PO TID Hydrochlorothiazide 25 mg [hydroDIURIL 25 MG] Med 09/14/22 10:00 Active 12.5 mg PO DAILY Loratadine 10 mg [Claritin 10 mg] Med 09/13/22 22:00 Active 10 mg PO HS Losartan Potassium 50 mg [Cozaar 50 MG] Med 09/14/22 10:00 Active 50 mg PO DAILY Methylprednisolone Sod Suc 40M [solu-MEDROL] Med 09/13/22 19:46 Discontinued 40 mg .ROUTE .STK-MED ONE Methylprednisolone Sod Suc 40M [solu-MEDROL] Med 09/14/22 05:45 Discontinued 40 mg .ROUTE .STK-MED ONE Methylprednisolone Sod Suc 40M [solu-MEDROL] 40 mg Med 09/13/22 22:00 Active Water For Injection,Sterile [Sterile H2O 10 ml] 1 ml IV Q8HT NaCl 0.9% 1000 ml [Sodium Chloride 0.9% 1000 ML] 1,000 Med 09/13/22 19:15 Active ml IV 50 mls/hr Oxybutynin Chloride 5 mg [Ditropan 5 MG] Med 09/13/22 22:00 Discontinued 15 mg PO HS Oxybutynin Chloride Xl 5 mg [Ditropan XL 5 MG] Med 09/14/22 22:00 Active 15 mg PO HS Water For Injection,Sterile [Sterile H2O 10 ml] Med 09/13/22 20:56 Discontinued 10 ml IJ .STK-MED ONE Oxygen Nasal Cannula 3 lpm RT 09/13/22 16:55 Active Pulse Oximetry .spot check RT 09/13/22 16:55 Active Respiratory Therapy Assessment DAILY RT 09/13/22 16:55 Active Patient Care Notes (Last 24 hours) 09/14/22 06:56 Nursing Note by Prema Escoto Patient had quiet hours; slept. Oxygen decreased to 2LNC this morning; Sat 98%. Initialized on 09/14/22 06:56 - END OF NOTE 09/14/22 00:52 Nursing Note by Prema Escoto Assisted Patient to BR, tolerated well. No Respiratory distress. Initialized on 09/14/22 00:52 - END OF NOTE 09/13/22 22:17 Nursing Note by Prema Escoto Patient complaint of being short of breath. SOB noted talking on telephone and with family member-granddaughter at the bedside. This RN encouraged patient to turn her cellphone off and rest; vitals at this time: HR 80, Rep 20, Sat 97% on 3LNC. Patient agreed, breathing improved after a few minutes. CAll light and personal items in reach. Initialized on 09/13/22 22:17 - END OF NOTE 09/13/22 19:07 Nursing Note by Sada Holbrook ALSO REC. ORDER FROM DR. PHILLIPS TO CONTINUE ALL HOME MEDICATIONS. Initialized on 09/13/22 19:07 - END OF NOTE 09/13/22 19:05 Nursing Note by Sada Holbrook SPOKE TO DR. PHILLIPS AND RECEIVED THE FOLLOWING ORDERS: NORMAL SALINE AT 50CC/HR, CBC AND CMP TOMORROW AM, ROCEPHIN 1GM IV DAILY, SOLU MEDROL 40MG IV Q [address] PHILLIPS AWARE OF PREDNISONE ALLERGY AND PT STATING "I CAN TAKE PREDNISONE IN MY IV JUST NOT BY MOUTH". Initialized on 09/13/22 19:05 - END OF NOTE 09/13/22 17:20 Nursing Note by Sada Holbrook WEIGHT ENTERED AT 103.2KG PER PT REPORT. PT STATES THIS WAS HER WEIGHT AT DR. PHILLIPS OFFICE TODAY PRIOR TO DIRECT ADMISSIONN. PT UNABLE TO LIE FLAT AT THIS TIME TO WEIGH WITH BED SCALE DUE TO SOB AND WHEEZING. WILL RE-ATTEMPT AT A LATER TIME. Initialized on 09/13/22 17:20 - END OF NOTE Code(s): J44.1 - CHRONIC OBSTRUCTIVE PULMONARY DISEASE W (ACUTE) EXACERBATION; J45.901 - UNSPECIFIED ASTHMA WITH (ACUTE) EXACERBATION
--- NOTE | 2022-09-14 08:41 | XRAY ---
Indication: Cough and wheezing. Comparison: July 15, 2018 Portable chest remains inflated and clear again with a few incidental calcified granulomas. Heart not enlarged. Bony thorax intact again with mild degenerative changes and lower cervical fusion hardware. Impression: Continued nonacute chest with chronic findings.
[2022-09-14] MEDS: Neurontin PO SCH ×3 (10:24→21:13)
[2022-09-14] MEDS: Lexapro PO SCH (10:25)
[2022-09-14] MEDS: hydroDIURIL 25 MG PO SCH (10:25)
[2022-09-14] MEDS: Cozaar 50 MG PO SCH (10:25)
[2022-09-14] MEDS: NYSTOP POWDER 15 GM TP SCH ×2 (10:40→21:30)
[2022-09-14] MEDS: Sodium Chloride 0.9% 1000 ML 1,000 ML IV SCH (14:16)
[2022-09-14] MEDS: Valium 5 MG PO SCH ×2 (14:17→21:13)
[2022-09-14] MEDS: Ditropan XL 5 MG PO SCH (21:13)
[2022-09-14] MEDS: CLARITIN 10 MG PO SCH (21:13)
[2022-09-14] MEDS: ROCEPHIN 1 Gm-D5w 50 ml Bag** 1 G/50 ML IVPB IV SCH (21:29)
[2022-09-14] MEDS ORDERED: NON-FORMULARY ITEM (Oxybutynin Chloride [Oxybutynin Chloride Er] 10 MG Tab.Er.24) PO SCH (22:00)
[2022-09-15] MEDS: PROVENTIL 2.5 MG/3 ML NEB IH SCH ×2 (01:11→07:25)
[2022-09-15] MEDS: solu-MEDROL 40 MG, Sterile H2O 10 ml 1 ML IV SCH ×6 (05:13→21:04)
--- NOTE | 2022-09-15 08:14 | PCM.DS ---
Discharge Summary Date of Admission: 09/13/22 16:38 Admitting Physician: BREE PHILLIPS Primary Care Provider: BREE PHILLIPS Allergies Allergies prednisone Allergy (Intermediate, Verified 09/13/22 17:23) lisinopril Allergy (Mild, Verified 09/13/22 17:23) Cough Hospital Summary - Hospital Course Hospital Course: Chief Complaint Diagnosis EXACERBATION OF ASTHMA Allergies Allergy/AdvReac Type Severity Reaction Status Date / Time prednisone Allergy Intermediate Verified 09/13/22 17:23 lisinopril Allergy Mild Cough Verified 09/13/22 17:23 Vital Signs (Last 24 hours) Temp Pulse Resp BP Pulse Ox 09/15/22 07:06 96.7 F 61 18 159/77 98 09/15/22 04:00 98.8 F 68 17 117/53 98 09/15/22 01:12 67 18 98 09/15/22 00:00 98.7 F 76 17 110/57 96 09/14/22 19:39 97 F 85 18 100/53 99 09/14/22 19:11 85 18 97 09/14/22 16:00 97.5 F 87 18 137/63 94 L 09/14/22 13:23 77 20 97 09/14/22 12:00 77 18 152/64 97 09/14/22 11:01 65 18 97 09/14/22 08:32 88 18 98 Home Medications Medication Instructions Recorded Confirmed Last Taken Type Diazepam 5 mg [Valium 5 MG] 5 mg PO HS 09/13/22 09/13/22 09/12/22 History Escitalopram Oxalate [Lexapro] 10 mg PO DAILY 09/13/22 09/13/22 09/13/22 08:00 History Gabapentin [Neurontin ] 400 mg PO TID 09/13/22 09/13/22 09/13/22 08:00 History Hydrochlorothiazide 25 mg 12.5 mg PO DAILY 09/13/22 09/13/22 09/13/22 08:00 History [hydroDIURIL 25 MG] Losartan Potassium 50 mg 50 mg PO DAILY 09/13/22 09/13/22 09/13/22 08:00 History [Cozaar 50 MG] Oxybutynin Chloride [Oxybutynin 15 mg PO 09/13/22 09/13/22 09/12/22 History Chloride ER] Current Medications Generic Name Dose Route Start Last Admin Trade Name Freq PRN Reason Stop Dose Admin Albuterol Sulfate 2.5 mg 09/13/22 19:00 09/15/22 01:11 Albuterol Sulfate 2.5 Mg/3 Ml [facility] 10/13/22 18:59 2.5 mg Q6HRT JOHNNA Administration Albuterol Sulfate 2.5 mg 09/13/22 16:54 Albuterol Sulfate 2.5 Mg/3 Ml [facility] 10/13/22 16:53 Q4H PRN PRN SHORTNESS OF BREATH/WHEEZING Albuterol Sulfate 2 puff 09/14/22 06:58 09/14/22 10:58 Albuterol Common Canister Inhaler 10/14/22 06:57 2 puff Q4H PRN PRN Administration SHORTNESS OF BREATH Methylprednisolone Sodium 0 mg 09/13/22 22:00 09/15/22 05:13 Succinate 40 mg/ Sterile Water IV 10/13/22 21:59 40 mg 1 ml Q8HT JOHNNA Administration Diazepam 5 mg 09/14/22 14:00 09/14/22 21:13 Diazepam 5 Mg Tablet PO 10/14/22 13:59 5 mg BID JOHNNA Administration Escitalopram Oxalate 10 mg 09/14/22 10:00 09/14/22 10:25 Escitalopram Oxalate 10 Mg Tablet PO 10/14/22 09:59 10 mg DAILY JOHNNA Administration Gabapentin 400 mg 09/13/22 22:00 09/14/22 21:13 Gabapentin 400 Mg Capsule PO 10/13/22 21:59 400 mg TID JOHNNA Administration Hydrochlorothiazide 12.5 mg 09/14/22 10:00 09/14/22 10:25 Hydrochlorothiazide 25 Mg Tablet PO 10/14/22 09:59 12.5 mg DAILY JOHNNA Administration Sodium Chloride 1,000 mls @ 50 mls/hr 09/13/22 19:15 09/14/22 14:16 Sodium Chloride 0.9% 1000 Ml IV 10/13/22 19:14 50 mls/hr .Q20H JOHNNA Administration Ceftriaxone Sodium/Dextrose 1 g in 50 mls @ 100 mls/hr 09/14/22 22:00 09/14/22 21:29 Rocephin 1 Gm-D5w 50 Ml Bag IV 09/17/22 21:59 100 mls/hr Q24H22 JOHNNA Administration Loratadine 10 mg 09/13/22 22:00 09/14/22 21:13 Loratadine 10 Mg Tablet PO 10/13/22 21:59 10 mg HS JOHNNA Administration Losartan Potassium 50 mg 09/14/22 10:00 09/14/22 10:25 Losartan Potassium 50 Mg Tablet PO 10/14/22 09:59 50 mg DAILY JOHNNA Administration Nystatin 0 gm 09/14/22 11:00 09/14/22 21:30 Nystatin 15 Gm Powder TP 10/14/22 10:59 15 gm BID JOHNNA Administration Oxybutynin Chloride 15 mg 09/14/22 22:00 09/14/22 21:13 Oxybutynin Chloride Xl 5 Mg Tab PO 10/14/22 21:59 15 mg HS JOHNNA Administration Discontinued Medications Generic Name Dose Route Start Last Admin Trade Name Freq PRN Reason Stop Dose Admin Albuterol Sulfate Confirm 09/13/22 16:49 Albuterol Sulfate 2.5 Mg/3 Ml Neb Administered 09/13/22 16:50 Dose 2.5 mg IH .STK-MED ONE Diazepam 5 mg 09/13/22 22:00 09/13/22 21:36 Diazepam 5 Mg Tablet PO 10/13/22 21:59 5 mg HS JOHNNA Administration Ceftriaxone Sodium/Dextrose 1 g in 50 mls @ 100 mls/hr 09/13/22 20:00 09/13/22 20:25 Rocephin 1 Gm-D5w 50 Ml Bag IV 09/16/22 19:59 100 mls/hr Q24H10 JOHNNA Administration Methylprednisolone Sodium Succinate Confirm 09/13/22 19:46 Methylprednisolone Sod Suc 40m 40 Mg/Ml Vial Administered 09/13/22 19:47 Dose 40 mg .ROUTE .STK-MED ONE Methylprednisolone Sodium Succinate Confirm 09/14/22 05:45 Methylprednisolone Sod Suc 40m 40 Mg/Ml Vial Administered 09/14/22 05:46 Dose 40 mg .ROUTE .STK-MED ONE Oxybutynin Chloride 15 mg 09/13/22 22:00 09/13/22 21:36 Oxybutynin Chloride 5 Mg Tablet PO 10/13/22 21:59 15 mg HS JOHNNA Administration Sterile Water Confirm 09/13/22 20:56 Water For Injection,Sterile 10 Ml Vial Administered 09/13/22 20:57 Dose 10 ml IJ .STK-MED ONE Intake & Output (Last 24 hours) 09/12/22 09/13/22 09/14/22 09/15/22 11:59 11:59 11:59 11:59 Intake Total 1502 2065 Output Total 300 Balance 1202 2065 Weight 103.2 kg Orders (Last 24 hours) Category Date Time Status Ceftriaxone 1 GM/50 ML PREMIX* [ROCEPHIN 1 Gm-D5w 50 ml Med 09/14/22 22:00 Active Bag] 1 g in 50 ml IV Q24H22 Diazepam 5 mg [Valium 5 MG] Med 09/14/22 14:00 Active 5 mg PO BID Escitalopram Oxalate [Lexapro] Med 09/14/22 10:00 Active 10 mg PO DAILY Hydrochlorothiazide 25 mg [hydroDIURIL 25 MG] Med 09/14/22 10:00 Active 12.5 mg PO DAILY Losartan Potassium 50 mg [Cozaar 50 MG] Med 09/14/22 10:00 Active 50 mg PO DAILY Nystatin Powder 15 gm [Nystop Powder 15 gm] Med 09/14/22 11:00 Active 0 gm TP BID Oxybutynin Chloride Xl 5 mg [Ditropan XL 5 MG] Med 09/14/22 22:00 Active 15 mg PO HS RT Miscellaneous Order ROUTINE RT 09/15/22 08:02 Active Patient Care Notes (Last 24 hours) 09/15/22 05:51 Nursing Note by Prema Escoto Quiet hours; slept comfortable. O2@ 2LNC in use no acute respiratory distress. Initialized on 09/15/22 05:51 - END OF NOTE 09/14/22 19:20 Respiratory Note by Alvino aNvarro NURSING CALLED TO STATE THAT PT WAS HAVING AN ASTHMA ATTACK, I CAME TO PT AND SHE HAD ALREADY GOTTEN UP AND OBTAINED HER HM ALB MDI FROM HER PURSE AND USED IT. I WENT AHEAD AND GAVE PT AN ALB NEB TX AND PLACED PT BACK ON 2LPM POST TX. PT IS ANXIOUS W/ HER SOB, PT ASKED TO KEEP HER HM ALB MDI AT BEDSIDE, I STATED THAT WAS FINE BUT TO PLEASE CALL FOR RT EVERY TIME SO I COULD ASSESS AND ASSIST. Initialized on 09/14/22 19:20 - END OF NOTE - Vitals & Intake/Output Vital Signs: Vital Signs Temperature 96.7 F 09/15/22 07:06 Pulse Rate 61 09/15/22 07:06 Respiratory Rate 18 09/15/22 07:06 Blood Pressure 159/77 09/15/22 07:06 O2 Sat by Pulse Oximetry 98 09/15/22 07:06 Intake & Output: Intake & Output 09/12/22 09/13/22 09/14/22 09/15/22 11:59 11:59 11:59 11:59 Intake Total 1502 2065 Output Total 300 Balance 1202 2065 Weight 103.2 kg - Lab Result Diagrams: 09/14/22 04:51 09/14/22 04:51 - Radiology Exams Ordered Rad Exams-Entire Visit: Radiology Procedures Category Date Time Status CHEST 1 VIEW (PORTABLE) Urgent Exams 09/13/22 17:02 Completed - Procedures and Test Procedures and Tests throughout Hospitalization: Therapy Orders & Screens 09/13/22 16:55 Oxygen Nasal Cannula 3 lpm Comment: Respiratory Therapy Assessment DAILY Comment: 09/15/22 08:02 RT Miscellaneous Order ROUTINE Comment: Physician Instructions: Reason For Exam: wean off oxygen Diagnosis: EXACERBATION OF ASTHMA Discharge Exam General Appearance: no apparent distress, alert Neurologic Exam: alert, oriented x 3, cooperative, normal mood/affect, nml ce rebellar function, sensation nml, No motor deficits Eye Exam: PERRL, EOMI, eyes nml inspection Ears, Nose, Throat Exam: normal ENT inspection, pharynx normal, moist mucous membranes Neck Exam: normal inspection, non-tender, supple, full range of motion Respiratory Exam: normal breath sounds, wheezing, No respiratory distress Cardiovascular Exam: regular rate/rhythm, normal heart sounds Gastrointestinal/Abdomen Exam: soft, No tenderness, No mass Pelvic Exam: deferred Rectal Exam: deferred Back Exam: normal inspection, normal range of motion, No CVA tenderness, No vertebral tenderness Extremity Exam: normal inspection, normal range of motion Skin Exam: normal color, warm, dry Final Diagnosis/Problem List - Final Discharge Diagnosis/Problem (1) Acute exacerbation of COPD with asthma Current Visit: Yes Status: Acute Assessment & Plan: improving, plan to discharge home today Code(s): J44.1 - CHRONIC OBSTRUCTIVE PULMONARY DISEASE W (ACUTE) EXACERBATION; J45.901 - UNSPECIFIED ASTHMA WITH (ACUTE) EXACERBATION - Discharge Discharge Date: 09/15/22 Disposition: Home, Self-Care Condition: Stable Prescriptions: New Azithromycin [Azithromycin 250 mg Pack] 250 mg PO UD #6 tablet Continue Albuterol Sulfate [Ventolin Hfa] 18 gm IH Q4H PRN PRN PRN Reason: Shortness Of Breath Cetirizine HCl [Zyrtec] 10 mg PO HS Oxybutynin Chloride [Oxybutynin Chloride ER] 15 mg PO HS Gabapentin [Neurontin ] 400 mg PO TID Escitalopram Oxalate [Lexapro] 10 mg PO DAILY Diazepam 5 mg [Valium 5 MG] 5 mg PO HS Losartan Potassium 50 mg [Cozaar 50 MG] 50 mg PO DAILY Hydrochlorothiazide 25 mg [hydroDIURIL 25 MG] 12.5 mg PO DAILY Follow up with: BREE PHILLIPS MD [Primary Care Provider] - 7 Days
--- NOTE | 2022-09-15 08:32 | PCM.NOTE ---
Date and Time: 09/15/22829 Subjective Assessment: still short of breath, wheezing - Review of Systems Constitutional: No Fever, No Chills Eyes: No Symptoms Ears, Nose, & Throat: No Symptoms Respiratory: Short Of Breath, Wheezing, No Cough Cardiac: No Chest Pain, No Edema, No Syncope Abdominal/Gastrointestinal: No Abdominal Pain, No Nausea, No Vomiting, No Diarrhea Genitourinary Symptoms: No Dysuria Musculoskeletal: No Back Pain, No Neck Pain Skin: No Rash Neurological: No Dizziness, No Focal Weakness, No Sensory Changes Psychological: No Symptoms Endocrine: No Symptoms Hematologic/Lymphatic: No Symptoms Immunological/Allergic: No Symptoms Objective Exam General Appearance: mild distress, alert Neurologic Exam: alert, oriented x 3, cooperative, normal mood/affect, nml cerebellar function, sensation nml, No motor deficits Skin Exam: normal color, warm, dry Eye Exam: PERRL, EOMI, eyes nml inspection Ears, Nose, Throat Exam: normal ENT inspection, pharynx normal, moist mucous membranes Neck Exam: normal inspection, non-tender, supple, full range of motion Respiratory Exam: diminished breath sounds, wheezing, No respiratory distress Cardiovascular Exam: regular rate/rhythm, normal heart sounds Gastrointestinal/Abdomen Exam: soft, No tenderness, No mass Extremity Exam: normal inspection, normal range of motion Back Exam: normal inspection, normal range of motion, No CVA tenderness, No vertebral tenderness Pelvic Exam: deferred Rectal Exam: deferred OBJECTIVE DATA Vital Signs: Vital Signs - 24 hr Temp Pulse Resp BP Pulse Ox 09/15/22 07:06 96.7 F 61 18 159/77 98 09/15/22 04:00 98.8 F 68 17 117/53 98 09/15/22 01:12 67 18 98 09/15/22 00:00 98.7 F 76 17 110/57 96 09/14/22 19:39 97 F 85 18 100/53 99 09/14/22 19:11 85 18 97 09/14/22 16:00 97.5 F 87 18 137/63 94 L 09/14/22 13:23 77 20 97 09/14/22 12:00 77 18 152/64 97 09/14/22 11:01 65 18 97 09/14/22 08:32 88 18 98 Pain Assessment - Last Documented Pain Intensity 0 Intake and Output: Intake & Output 02/2709/13/22 09/14/22 09/15/22 11:59 11:59 11:59 11:59 Intake Total 1502 5 Output Total 300 Balance 1202 2064 Weight 103.2 kg Radiology Exams: Radiology Procedures Category Date Time Status CHEST 1 VIEW (PORTABLE) Urgent Exams 09/13/22 17:02 Completed Multi-Disciplinary Progress Notes: Multi-Disciplinary Progress Notes 09/14/22 19:20 Respiratory Note by Alvino Navarro NURSING CALLED TO STATE THAT PT WAS HAVING AN ASTHMA ATTACK, I CAME TO PT AND SHE HAD ALREADY GOTTEN UP AND OBTAINED HER HM ALB MDI FROM HER PURSE AND USED IT. I WENT AHEAD AND GAVE PT AN ALB NEB TX AND PLACED PT BACK ON 2LPM POST TX. PT IS ANXIOUS W/ HER SOB, PT ASKED TO KEEP HER HM ALB MDI AT BEDSIDE, I STATED THAT WAS FINE BUT TO PLEASE CALL FOR RT EVERY TIME SO I COULD ASSESS AND ASSIST. Initialized on 09/14/22 19:20 - END OF NOTE Assessment/Plan (1) Acute exacerbation of COPD with asthma Current Visit: Yes Status: Acute Assessment & Plan: Chief Complaint Diagnosis EXACERBATION OF ASTHMA Allergies Allergy/AdvReac Type Severity Reaction Status Date / Time prednisone Allergy Intermediate Verified 09/13/22 17:23 lisinopril Allergy Mild Cough Verified 09/13/22 17:23 Vital Signs (Last 24 hours) Temp Pulse Resp BP Pulse Ox 09/15/22 07:06 96.7 F 61 18 159/77 98 09/15/22 04:00 98.8 F 68 17 117/53 98 09/15/22 01:12 67 18 98 09/15/22 00:00 98.7 F 76 17 110/57 96 09/14/22 19:39 97 F 85 18 100/53 99 09/14/22 19:11 85 18 97 09/14/22 16:00 97.5 F 87 18 137/63 94 L 09/14/22 13:23 77 20 97 09/14/22 12:00 77 18 152/64 97 09/14/22 11:01 65 18 97 09/14/22 08:32 88 18 98 Home Medications Medication Instructions Recorded Confirmed Last Taken Type Diazepam 5 mg [Valium 5 MG] 5 mg PO HS 09/13/22 09/13/22 09/12/22 History Escitalopram Oxalate [Lexapro] 10 mg PO DAILY 09/13/22 09/13/22 09/13/22 08:00 History Gabapentin [Neurontin ] 400 mg PO TID 09/13/22 09/13/22 09/13/22 08:00 History Hydrochlorothiazide 25 mg 12.5 mg PO DAILY 09/13/22 09/13/22 09/13/22 08:00 History [hydroDIURIL 25 MG] Losartan Potassium 50 mg 50 mg PO DAILY 09/13/22 09/13/22 09/13/22 08:00 History [Cozaar 50 MG] Oxybutynin Chloride [Oxybutynin 15 mg PO HS 09/13/22 09/13/22 09/12/22 History Chloride ER] Azithromycin [Azithromycin 250 mg 250 mg PO UD #6 tablet 09/15/22 Unknown Rx Pack] Current Medications Generic Name Dose Route Start Last Admin Trade Name Freq PRN Reason Stop Dose Admin Albuterol Sulfate 2.5 mg 09/13/22 19:00 09/15/22 01:11 Albuterol Sulfate 2.5 Mg/3 Ml [facility] 10/13/22 18:59 2.5 mg Q6HRT JOHNNA Administration Albuterol Sulfate 2.5 mg 09/13/22 16:54 Albuterol Sulfate 2.5 Mg/3 Ml [facility] 10/13/22 16:53 Q4H PRN PRN SHORTNESS OF BREATH/WHEEZING Albuterol Sulfate 2 puff 09/14/22 06:58 09/14/22 10:58 Albuterol Common Canister Inhaler 10/14/22 06:57 2 puff Q4H PRN PRN Administration SHORTNESS OF BREATH Methylprednisolone Sodium 0 mg 09/13/22 22:00 09/15/22 05:13 Succinate 40 mg/ Sterile Water IV 10/13/22 21:59 40 mg 1 ml Q8HT JOHNNA Administration Diazepam 5 mg 09/14/22 14:00 09/14/22 21:13 Diazepam 5 Mg Tablet PO 10/14/22 13:59 5 mg BID JOHNNA Administration Escitalopram Oxalate 10 mg 09/14/22 10:00 09/14/22 10:25 Escitalopram Oxalate 10 Mg Tablet PO 10/14/22 09:59 10 mg DAILY JOHNNA Administration Gabapentin 400 mg 09/13/22 22:00 09/14/22 21:13 Gabapentin 400 Mg Capsule PO 10/13/22 21:59 400 mg TID JOHNNA Administration Hydrochlorothiazide 12.5 mg 09/14/22 10:00 09/14/22 10:25 Hydrochlorothiazide 25 Mg Tablet PO 10/14/22 09:59 12.5 mg DAILY JOHNNA Administration Sodium Chloride 1,000 mls @ 50 mls/hr 09/13/22 19:15 09/14/22 14:16 Sodium Chloride 0.9% 1000 Ml IV 10/13/22 19:14 50 mls/hr .Q20H JOHNNA Administration Ceftriaxone Sodium/Dextrose 1 g in 50 mls @ 100 mls/hr 09/14/22 22:00 09/14/22 21:29 Rocephin 1 Gm-D5w 50 Ml Bag IV 09/17/22 21:59 100 mls/hr Q24H22 JOHNNA Administration Loratadine 10 mg 09/13/22 22:00 09/14/22 21:13 Loratadine 10 Mg Tablet PO 10/13/22 21:59 10 mg HS JOHNNA Administration Losartan Potassium 50 mg 09/14/22 10:00 09/14/22 10:25 Losartan Potassium 50 Mg Tablet PO 10/14/22 09:59 50 mg DAILY JOHNNA Administration Nystatin 0 gm 09/14/22 11:00 09/14/22 21:30 Nystatin 15 Gm Powder TP 10/14/22 10:59 15 gm BID JOHNNA Administration Oxybutynin Chloride 15 mg 09/14/22 22:00 09/14/22 21:13 Oxybutynin Chloride Xl 5 Mg Tab PO 10/14/22 21:59 15 mg HS JOHNNA Administration Discontinued Medications Generic Name Dose Route Start Last Admin Trade Name Freq PRN Reason Stop Dose Admin Albuterol Sulfate Confirm 09/13/22 16:49 Albuterol Sulfate 2.5 Mg/3 Ml Neb Administered 09/13/22 16:50 Dose 2.5 mg IH .STK-MED ONE Diazepam 5 mg 09/13/22 22:00 09/13/22 21:36 Diazepam 5 Mg Tablet PO 10/13/22 21:59 5 mg HS JOHNNA Administration Ceftriaxone Sodium/Dextrose 1 g in 50 mls @ 100 mls/hr 09/13/22 20:00 02/28/23 20:25 Rocephin 1 Gm-D5w 50 Ml Bag IV 09/16/22 19:59 100 mls/hr Q24H10 JOHNNA Administration Methylprednisolone Sodium Succinate Confirm 09/13/22 19:46 Methylprednisolone Sod Suc 40m 40 Mg/Ml Vial Administered 09/13/22 19:47 Dose 40 mg .ROUTE .STK-MED ONE Methylprednisolone Sodium Succinate Confirm 09/14/22 05:45 Methylprednisolone Sod Suc 40m 40 Mg/Ml Vial Administered 09/14/22 05:46 Dose 40 mg .ROUTE .STK-MED ONE Oxybutynin Chloride 15 mg 09/13/22 22:00 09/13/22 21:36 Oxybutynin Chloride 5 Mg Tablet PO 10/13/22 21:59 15 mg HS JOHNNA Administration Sterile Water Confirm 09/13/22 20:56 Water For Injection,Sterile 10 Ml Vial Administered 09/13/22 20:57 Dose 10 ml IJ .STK-MED ONE Intake & Output (Last 24 hours) 09/12/22 09/13/22 09/14/22 09/15/22 11:59 11:59 11:59 11:59 Intake Total 1502 2065 Output Total 300 Balance 1202 2065 Weight 103.2 kg Orders (Last 24 hours) Category Date Time Status Ceftriaxone 1 GM/50 ML PREMIX* [ROCEPHIN 1 Gm-D5w 50 ml Med 09/14/22 22:00 Active Bag] 1 g in 50 ml IV Q24H22 Diazepam 5 mg [Valium 5 MG] Med 09/14/22 14:00 Active 5 mg PO BID Escitalopram Oxalate [Lexapro] Med 09/14/22 10:00 Active 10 mg PO DAILY Hydrochlorothiazide 25 mg [hydroDIURIL 25 MG] Med 09/14/22 10:00 Active 12.5 mg PO DAILY Losartan Potassium 50 mg [Cozaar 50 MG] Med 09/14/22 10:00 Active 50 mg PO DAILY Nystatin Powder 15 gm [Nystop Powder 15 gm] Med 09/14/22 11:00 Active 0 gm TP BID Oxybutynin Chloride Xl 5 mg [Ditropan XL 5 MG] Med 09/14/22 22:00 Active 15 mg PO HS RT Miscellaneous Order ROUTINE RT 09/15/22 08:02 Active Patient Care Notes (Last 24 hours) 09/15/22 05:51 Nursing Note by Prema Escoto Quiet hours; slept comfortable. O2@ 2LNC in use no acute respiratory distress. Initialized on 09/15/22 05:51 - END OF NOTE 09/14/22 19:20 Respiratory Note by Alvino Navarro NURSING CALLED TO STATE THAT PT WAS HAVING AN ASTHMA ATTACK, I CAME TO PT RM AND SHE HAD ALREADY GOTTEN UP AND OBTAINED HER HM ALB MDI FROM HER PURSE AND USED IT. I WENT AHEAD AND GAVE PT AN ALB NEB TX AND PLACED PT BACK ON 2LPM POST TX. PT IS ANXIOUS W/ HER SOB, PT ASKED TO KEEP HER HM ALB MDI AT BEDSIDE, I STATED THAT WAS FINE BUT TO PLEASE CALL FOR RT EVERY TIME SO I COULD ASSESS AND ASSIST. Initialized on 09/14/22 19:20 - END OF NOTE Code(s): J44.1 - CHRONIC OBSTRUCTIVE PULMONARY DISEASE W (ACUTE) EXACERBATION; J45.901 - UNSPECIFIED ASTHMA WITH (ACUTE) EXACERBATION
[2022-09-15] MEDS: hydroDIURIL 25 MG PO SCH (09:15)
[2022-09-15] MEDS: Lexapro PO SCH (09:16)
[2022-09-15] MEDS: Valium 5 MG PO SCH ×2 (09:16→21:04)
[2022-09-15] MEDS: Cozaar 50 MG PO SCH (09:16)
[2022-09-15] MEDS: NYSTOP POWDER 15 GM TP SCH ×2 (09:17→21:04)
[2022-09-15] MEDS: Neurontin PO SCH ×3 (09:17→21:04)
[2022-09-15] MEDS: Sodium Chloride 0.9% 1000 ML 1,000 ML IV SCH (09:18)
[2022-09-15] MEDS: DUONEB 0.5-3 MG/3 ml Neb IH SCH ×2 (13:15→19:30)
[2022-09-15] MEDS: Ditropan XL 5 MG PO SCH (21:04)
[2022-09-15] MEDS: CLARITIN 10 MG PO SCH (21:04)
[2022-09-15] MEDS: ROCEPHIN 1 Gm-D5w 50 ml Bag** 1 G/50 ML IVPB IV SCH (21:27)
[2022-09-16] MEDS: DUONEB 0.5-3 MG/3 ml Neb IH SCH ×2 (01:16→08:00)
[2022-09-16] MEDS: Sodium Chloride 0.9% 1000 ML 1,000 ML IV SCH (05:06)
[2022-09-16] MEDS: solu-MEDROL 40 MG, Sterile H2O 10 ml 1 ML IV SCH ×2 (05:06)
[2022-09-16] MEDS: Valium 5 MG PO SCH (08:13)
[2022-09-16] MEDS: hydroDIURIL 25 MG PO SCH (08:13)
[2022-09-16] MEDS: Neurontin PO SCH (08:13)
[2022-09-16] MEDS: Cozaar 50 MG PO SCH (08:13)
[2022-09-16] MEDS: Lexapro PO SCH (08:14)
[2022-09-16] MEDS: NYSTOP POWDER 15 GM TP SCH (08:16)
[2022-09-16] MEDS ORDERED: Tessalon Perles 100 MG PO PRN (09:03)
[2022-09-16 12:36] VITALS: BP 134/78; PULSE 76; O2SAT 95
== END 2022-09-16 13:06 | disposition home or self-care (01) | DRG 191 ==
LOC: MED SURG 15:57 → UNDOADMOB 15:57 → MED SURG 16:38 → OBSVTOIN 09-14 07:55
PROVIDERS: ADMIT General Practice; ATTEND General Practice
DX: J44.1 Chronic obstructive pulmonary disease with (acute) exacerbation (principal); J45.901 Unspecified asthma with (acute) exacerbation; I10 Essential (primary) hypertension; E78.5 Hyperlipidemia, unspecified; Z79.899 Other long term (current) drug therapy; Z20.828 Contact with and (suspected) exposure to other viral communicable diseases
CPT/HCPCS: 0241U; 36415; 71045; 80053; 83036; 85027; 94640; 94760; G0378; J0696; J2920; J7609; A9270-GY

== ENCOUNTER 2022-10-06 18:03 | Emergency (ER) | payer MEDICARE, OTHER ==
[2022-10-06 19:45] LABS: Appearance Clear (Clear); Bacteria None Seen /HPF (None Seen); Bilirubin Negative (Negative); Blood Negative (Negative); Epithelial Cells Few /HPF (None Seen); Glucose, Urine Negative (Negative); Hyaline Casts NONE SEEN /LPF (0-2); Ketones Negative (Negative); Leukocyte Esterase Small (Negative); Nitrite Negative (Negative); Ph 5.5 (4.6-8.0); Protein,Urine Dip Negative (Negative); RBC 0-2 /HPF (0-5); Specific Gravity 1.025 (1.005-1.030)
[2022-10-06 19:46] LABS: ADD URINE CULTURE? NO (NO)
[2022-10-06 19:57] LABS: Absolute Neutrophil Ct (ANC) 2.66 x10^3/uL (1.4-6.9); Basophil (Absolute #) 0.05 x10^3/uL (0-0.4); Hematocrit 39.3 % (35-47); Hemoglobin 12.1 g/dL (12.0-16.0); IMMATURE GRAN # 0.02 x10^3u/L (0.00-0.03); IMMATURE GRAN % 0.4 % (0.00-0.4); Lymphocyte (Absolute #) 1.62 x10^3/uL (1.0-4.6); Mean Cell Volume 90.8 fL (78-100); Mean Corpuscular Hemoglobin 27.9 pg (26-32); Mean Corpuscular Hgb Concent. 30.8 g/dL (32-36); Mean Platelet Volume 10.6 fL (7.5-11.0); Monocyte (Absolute #) 0.51 x10^3/uL (0.0-1.3); Monocytes % 10.1 % (0.0-12.0); Neutrophil % 52.5 % (36.0-66.0); Platelet Count 197 x10^3/uL (150-450); Red Blood Count 4.33 x10^6/uL (4.1-5.4); Red Cell Distribution Width 12.7 % (11.5-14.0); White Blood Count 5.1 x10^3/uL (4.0-10.5)
[2022-10-06 19:58] LABS: Amphetamine,Urine NEGATIVE (NEGATIVE); Barbiturate,Urine NEGATIVE (NEGATIVE); Benzodiazepine,Urine POSITIVE (NEGATIVE); Cocaine,Urine NEGATIVE (NEGATIVE); Methadone,Urine NEGATIVE (NEGATIVE); Opiate,Urine NEGATIVE (NEGATIVE); PCP,Urine NEGATIVE (NEGATIVE); THC,Urine NEGATIVE (NEGATIVE)
[2022-10-06 20:14] LABS: ALBUMIN 3.7 g/dL (3.5-5.0); ALKALINE PHOSPHATASE 83 U/L (38-126); ANION GAP 8.4 MEQ/L (5-15); BLOOD UREA NITROGEN 13 mg/dL (7-17); CHLORIDE 101 mmol/L (98-107); Calcium 8.7 mg/dL (8.4-10.2); Carbon Dioxide 36 mmol/L (22-30); Creatinine 1 0.78 mg/dL (0.52-1.04); EST GLOMERULAR FILTRATION RATE > 60.0 ML/MIN; ETHYL ALCOHOL < 10 mg/dL (0-10); Glucose 89 mg/dL (74-106); Potassium 3.7 mmol/L (3.5-5.1); SGOT/AST 26 U/L (14-36); SGPT/ALT 14 U/L (0-35); SODIUM 141 mmol/L (137-145); Total Protein 6.6 g/dL (6.3-8.2)
[2022-10-06 20:22] LABS: ACETAMINOPHEN < 10 ug/ml (10-30); SALICYLATE < 1.0 mg/dL (2-20)
[2022-10-06 20:33] LABS: INFLUENZA A NEGATIVE (NEGATIVE); INFLUENZA B NEGATIVE (NEGATIVE); RESPIRATORY SYNCTIAL VIRUS NEGATIVE (NEGATIVE); SARS-CoV-2 Xpert Express NEGATIVE (NEGATIVE)
--- NOTE | 2022-10-06 21:03 | ERPHSYRPT ---
- History of Present Illness Time Seen by Provider: 10/06/22 19:30 Exam Limitations: no limitations Patient Subjective Stated Complaint: pt here for depression after her moms in jul. she saw dron monday and he is trying to get her a therapist she stats she is unable to do ADLS and states she is more forgetful than normal Triage Nursing Assessment: pt walked in, resp easy, skin w/d/p, alert, flat effect, crying off and on,dishoveled, Physician History: Patient 76-year-old female presents to emergency department for evaluation of depression. Patient states her mother in July. Patient unable to function. Patient states she is severely depressed. She cries all the time. Patient stays in her bed all day long. She feels like her body is becoming weak. Patient states she is unable to function or perform activities of daily living. Patient is tearful and crying in the room. She denies pain. No nausea vomiting or diaphoresis. No suicidal homicidal ideation. Patient tried to get a hold of her therapist but was unable to do so. Patient voices no other complaints or concerns at this time. Portions of this note were created with voice recognition technology. There may be grammatical, spelling, punctuation or sound alike errors Timing/Duration: other (Symptoms have been ongoing since July the time of of her mother) Severity of Symptoms-Max: moderate Severity of Symptoms-Current: mild Context related to: recent Suicidal thoughts: other Associated Symptoms: denies symptoms Previous symptoms: no prior history Allergies/Adverse Reactions: prednisone Allergy (Intermediate, Verified 10/06/22 18:40) lisinopril Allergy (Mild, Verified 10/06/22 18:40) Cough Home Medications: Albuterol Sulfate [Ventolin Hfa] 18 gm IH Q4H PRN PRN 07/10/17 [History] Cetirizine HCl [Zyrtec] 10 mg PO HS 09/01/18 [History] Diazepam 5 mg [Valium 5 MG] 5 mg PO HS 09/13/22 [History] Escitalopram Oxalate [Lexapro] 10 mg PO DAILY 09/13/22 [History] Gabapentin [Neurontin ] 400 mg PO TID 09/13/22 [History] Hydrochlorothiazide 25 mg [hydroDIURIL 25 MG] 12.5 mg PO DAILY 09/13/22 [History] Losartan Potassium 50 mg [Cozaar 50 MG] 50 mg PO DAILY 09/13/22 [History] Oxybutynin Chloride [Oxybutynin Chloride ER] 15 mg PO HS 09/13/22 [History] Hx Tetanus, Diphtheria Vaccination/Date Given: No Hx Influenza Vaccination/Date Given: Yes Hx Pneumococcal Vaccination/Date Given: Yes Immunizations Up to Date: Yes Travel Risk - International Travel Have you traveled outside of the country in past 3 weeks: No - Coronavirus Screening Are you exhibiting any of the following symptoms?: No Close contact with a COVID-19 positive Pt in past 14-21 Days: No - Vaccine Status Have you recieved a Covid-19 vaccination: Yes [employer]: Moderna - Vaccination Dates Date of 2cond Vaccination (if applicable): 10/01/20 - Past Medical History Pertinent Past Medical History: Yes Neurological History: TIA ENT History: Cataracts Cardiac History: High Cholesterol, Hypertension Respiratory History: Asthma Endocrine Medical History: No Pertinent History Musculoskeletal History: Arthritis GI Medical History: Gallbladder Disease, Hemorrhoids, Irritable Bowel History: No Pertinent History Psycho-Social History: Anxiety, Depression Female Reproductive Disorders: Other - Past Surgical History Past Surgical History: Yes Neuro Surgical History: No Pertinent History Cardiac: No Pertinent History Respiratory: No Pertinent History Gastrointestinal: Appendectomy, Cholecystectomy, Hernia Repair Genitourinary: No Pertinent History Musculoskeletal: Orthopedic Surgery Female Surgical History: Hysterectomy Other Surgical History: L KNEE - CORNEAL TRANSPLANTS - CATARACTS BOTH EYES. C5- C6 NECK SURGERY tonsilectomy - Social History Smoking Status: Never smoker How long have you smoked: never Exposure to second hand smoke: No Drug Use: none Patient Lives Alone: No - Review of Systems Constitutional: No Symptoms, No Fever, No Chills Eyes: No Symptoms Ears, Nose, & Throat: No Symptoms Respiratory: No Symptoms, No Cough, No Dyspnea Cardiac: No Symptoms, No Chest Pain, No Edema, No Syncope Abdominal/Gastrointestinal: No Symptoms, No Abdominal Pain, No Nausea, No Vomiting, No Diarrhea Genitourinary Symptoms: No Symptoms, No Dysuria Musculoskeletal: No Symptoms, No Back Pain, No Neck Pain Skin: No Symptoms, No Rash Neurological: No Symptoms, No Dizziness, No Focal Weakness, No Sensory Changes Psychological: No Symptoms Endocrine: No Symptoms Hematologic/Lymphatic: No Symptoms Immunological/Allergic: No Symptoms All Other Systems: Reviewed and Negative - Nursing Vital Signs Nursing Vital Signs: Initial Vital Signs Temperature 97.2 F 10/06/22 18:53 Pulse Rate 83 10/06/22 18:53 Respiratory Rate 18 10/06/22 18:53 Blood Pressure 160/77 10/06/22 18:53 O2 Sat by Pulse Oximetry 97 10/06/22 18:53 Pain Scale Pain Intensity 0 - Physical Exam General Appearance: no apparent distress Eyes, Ears, Nose, Throat Exam: normal ENT inspection, moist mucous membranes Neck Exam: normal inspection, non-tender, supple Respiratory Exam: normal breath sounds, lungs clear, No respiratory distress Cardiovascular Exam: regular rate/rhythm, normal heart sounds, No edema Gastrointestinal/Abdominal Exam: soft, No tenderness, No distention Extremities Exam: normal inspection, normal range of motion, No evidence of injury, No edema Current Suicidality: denies suicide plan Neurological Exam: alert, ab[employer] community [employer] member II-XII nml as tested, oriented x 3 Skin Exam: normal color, warm, dry, No rash SpO2: 96 - Course Nursing assessment & vital signs reviewed: Yes Ordered Tests: Active Orders 24 hr Category Date Time Status ACETAMINOPHEN Stat Lab 10/06/22 20:06 Completed CBC W DIFF Stat Lab 10/06/22 19:54 Completed CMP Stat Lab 10/06/22 19:54 Completed ETHYL ALCOHOL Stat Lab 10/06/22 19:54 Completed SALICYLATE Stat Lab 10/06/22 20:06 Completed UA W/RFX UR CULTURE Stat Lab 10/06/22 19:35 Completed Urine Triage Profile Stat Lab 10/06/22 19:35 Completed Medication Summary Discontinued Medications Generic Name Dose Route Start Last Admin Trade Name Freq PRN Reason Stop Dose Admin Nitrofurantoin Macrocrystals 100 mg 10/06/22 21:30 10/06/22 21:55 Nitrofurantoin Macro 100 Mg Capsule PO 10/06/22 21:31 100 mg STAT ONE Administration Nitrofurantoin Macrocrystals Confirm 10/06/22 21:54 Nitrofurantoin Macro 100 Mg Capsule Administered 10/06/22 21:55 Dose 100 mg .ROUTE .STK-MED ONE Lab/Rad Data: Laboratory Result Diagrams 10/06/22 19:54 10/06/22 19:54 Laboratory Results 10/06/22 10/06/22 10/06/22 Range/Units 20:06 19:54 19:54 WBC (4.0-10.5) x10^3/uL RBC (4.1-5.4) x10^6/uL Hgb (12.0-16.0) g/dL Hct (35-47) % MCV (78-100) fL MCH (26-32) pg MCHC (32-36) g/dL RDW (11.5-14.0) % Plt Count (150-450) x10^3/uL MPV (7.5-11.0) fL Gran % (36.0-66.0) % Immature Gran % (Auto) (0.00-0.4) % Nucleat RBC Rel Count (0.00-0.1) % Eos # (Auto) (0-0.5) x10^3/uL Immature Gran # (Auto) (0.00-0.03) x10^3u/L Absolute Lymphs (auto) (1.0-4.6) x10^3/uL Absolute Monos (auto) (0.0-1.3) x10^3/uL Absolute Nucleated RBC (0.00-0.01) x10^3u/L Lymphocytes % (24.0-44.0) % Monocytes % (0.0-12.0) % Eosinophils % (0.00-5.0) % Basophils % (0.0-0.4) % Absolute Granulocytes (1.4-6.9) x10^3/uL Basophils # (0-0.4) x10^3/uL Sodium 141 (137-145) mmol/L Potassium 3.7 (3.5-5.1) mmol/L Chloride 101 (98-107) mmol/L Carbon Dioxide 36 H (22-30) mmol/L Anion Gap 8.4 (5-15) MEQ/L BUN 13 (7-17) mg/dL Creatinine 0.78 (0.52-1.04) mg/dL Estimated GFR > 60.0 ML/MIN Glucose 89 (74-106) mg/dL Calcium 8.7 (8.4-10.2) mg/dL Total Bilirubin 0.60 (0.2-1.3) mg/dL AST 26 (14-36) U/L ALT 14 (0-35) U/L Alkaline Phosphatase 83 (38-126) U/L Serum Total Protein 6.6 (6.3-8.2) g/dL Albumin 3.7 (3.5-5.0) g/dL Urine Color (Yellow) Urine Appearance (Clear) Urine pH (4.6-8.0) Ur Specific [place] (1.005-1.030) Urine Protein (Negative) Urine Glucose (UA) (Negative) mg/dL Urine Ketones (Negative) Urine Blood (Negative) Urine Nitrite (Negative) Urine Bilirubin (Negative) Urine Urobilinogen (0.2) mg/dL Ur Leukocyte Esterase (Negative) U Hyaline Cast (Auto) (0-2) /LPF Urine Microscopic RBC (0-5) /HPF Urine Microscopic WBC (0-5) /HPF Ur Epithelial Cells (None Seen) /HPF Urine Bacteria (None Seen) /HPF Urine Culture Reflexed (NO) Salicylates < 1.0 L (2-20) mg/dL Urine Opiates Level (NEGATIVE) Ur Methadone (NEGATIVE) Acetaminophen < 10 L (10-30) ug/ml Urine Barbiturates (NEGATIVE) Ur Phencyclidine (PCP) (NEGATIVE) Urine Amphetamine (NEGATIVE) U Benzodiazepine Level (NEGATIVE) Urine Cocaine (NEGATIVE) Urine Marijuana (THC) (NEGATIVE) Ethyl Alcohol < 10 (0-10) mg/dL Influenza Type A Ag NEGATIVE (NEGATIVE) Influenza Type B Ag NEGATIVE (NEGATIVE) RSV (PCR) NEGATIVE (NEGATIVE) SARS-CoV-2 (PCR) NEGATIVE (NEGATIVE) 10/06/22 10/06/22 10/06/22 Range/Units 19:54 19:35 19:35 WBC 5.1 (4.0-10.5) x10^3/uL RBC 4.33 (4.1-5.4) x10^6/uL Hgb 12.1 (12.0-16.0) g/dL Hct 39.3 (35-47) % MCV 90.8 (78-100) fL MCH 27.9 (26-32) pg MCHC 30.8 L (32-36) g/dL RDW 12.7 (11.5-14.0) % Plt Count 197 (150-450) x10^3/uL MPV 10.6 (7.5-11.0) fL Gran % 52.5 (36.0-66.0) % Immature Gran % (Auto) 0.4 (0.00-0.4) % Nucleat RBC Rel Count 0.0 (0.00-0.1) % Eos # (Auto) 0.20 (0-0.5) x10^3/uL Immature Gran # (Auto) 0.02 (0.00-0.03) x10^3u/L Absolute Lymphs (auto) 1.62 (1.0-4.6) x10^3/uL Absolute Monos (auto) 0.51 (0.0-1.3) x10^3/uL Absolute Nucleated RBC 0.00 (0.00-0.01) x10^3u/L Lymphocytes % 32.0 (24.0-44.0) % Monocytes % 10.1 (0.0-12.0) % Eosinophils % 4.0 (0.00-5.0) % Basophils % 1.0 (0.0-0.4) % Absolute Granulocytes 2.66 (1.4-6.9) x10^3/uL Basophils # 0.05 (0-0.4) x10^3/uL Sodium (137-145) mmol/L Potassium (3.5-5.1) mmol/L Chloride (98-107) mmol/L Carbon Dioxide (22-30) mmol/L Anion Gap (5-15) MEQ/L BUN (7-17) mg/dL Creatinine (0.52-1.04) mg/dL Estimated GFR ML/MIN Glucose (74-106) mg/dL Calcium (8.4-10.2) mg/dL Total Bilirubin (0.2-1.3) mg/dL AST (14-36) U/L ALT (0-35) U/L Alkaline Phosphatase (38-126) U/L Serum Total Protein (6.3-8.2) g/dL Albumin (3.5-5.0) g/dL Urine Color Dark Yellow A (Yellow) Urine Appearance Clear (Clear) Urine pH 5.5 (4.6-8.0) Ur Specific [place] 1.025 (1.005-1.030) Urine Protein Negative (Negative) Urine Glucose (UA) Negative (Negative) mg/dL Urine Ketones Negative (Negative) Urine Blood Negative (Negative) Urine Nitrite Negative (Negative) Urine Bilirubin Negative (Negative) Urine Urobilinogen 1.0 A (0.2) mg/dL Ur Leukocyte Esterase Small A (Negative) U Hyaline Cast (Auto) NONE SEEN (0-2) /LPF Urine Microscopic RBC 0-2 (0-5) /HPF Urine Microscopic WBC 6-10 A (0-5) /HPF Ur Epithelial Cells Few (None Seen) /HPF Urine Bacteria None Seen (None Seen) /HPF Urine Culture Reflexed NO (NO) Salicylates (2-20) mg/dL Urine Opiates Level NEGATIVE (NEGATIVE) Ur Methadone NEGATIVE (NEGATIVE) Acetaminophen (10-30) ug/ml Urine Barbiturates NEGATIVE (NEGATIVE) Ur Phencyclidine (PCP) NEGATIVE (NEGATIVE) Urine Amphetamine NEGATIVE (NEGATIVE) U Benzodiazepine Level POSITIVE (NEGATIVE) Urine Cocaine NEGATIVE (NEGATIVE) Urine Marijuana (THC) NEGATIVE (NEGATIVE) Ethyl Alcohol (0-10) mg/dL Influenza Type A Ag (NEGATIVE) Influenza Type B Ag (NEGATIVE) RSV (PCR) (NEGATIVE) SARS-CoV-2 (PCR) (NEGATIVE) - Progress Progress: improved Progress Note: Patient 76-year-old female presents to our ED for evaluation of depressed mood since her mother in July. Patient denies homicidal suicidal ideation. Laboratory work-up essentially nonremarkable. Urinalysis reveals urinary tract infection. Patient received a dose of Macrobid in our ED. A prescription for the same forwarded to patient's pharmacy. Patient is medically cleared Complexity of data reviewed and analyzed is moderate. Testing reviewed and interpreted. Urinalysis reviewed and interpreted. Risk of complication and morbidity/mortality patient management is moderate. Section for Macrobid forwarded to patient's pharmacy. Patient received a dose of Macrobid in our ED. Patient will be discharged home with a safety plan. Patient reassessed. She is comfortable. Not not actively crying. Patient appears to be well composed. Patient agrees to follow-up primary care doctor within 48 hours for reevaluation. Patient agrees to abide via the safety plan. Portions of this note were created with voice recognition technology. There may be grammatical, spelling, punctuation or sound alike errors 10/07/22 00:08 10/07/22 00:12 Counseled pt/family regarding: lab results, diagnosis - Departure Departure Disposition: Home Clinical Impression: Depression, Urinary tract infection Condition: Stable Critical Care Time: No Referrals: BREE PHILLIPS MD [Primary Care Provider] - Follow up/PCP as directed Prescriptions: Nitrofurantoin Macro 100 mg [Macrobid 100MG Capsule] 100 mg PO BID 7 Days #14 cap
[2022-10-06] MEDS ORDERED: Macrobid 100MG Capsule PO ONE (21:30)
[2022-10-06] MEDS ORDERED: Macrobid 100MG Capsule ONE (21:54)
[2022-10-07 03:03] VITALS: BP 164/74; PULSE 64; O2SAT 98
== END 2022-10-07 01:00 | disposition home or self-care (01) ==
LOC: ED 18:03
DX: F32.9 Major depressive disorder, single episode, unspecified (principal); F43.21 Adjustment disorder with depressed mood; N39.0 Urinary tract infection, site not specified; Z63.4 Disappearance and death of family member; E78.5 Hyperlipidemia, unspecified; I10 Essential (primary) hypertension; Z79.899 Other long term (current) drug therapy; Z20.828 Contact with and (suspected) exposure to other viral communicable diseases
CPT/HCPCS: 0241U; 36415; 80053; 80307; 81001; 82077; 85025; 90791; 99284; Q3014; A9270-GY

== ENCOUNTER 2022-11-20 13:48 | Emergency (ER) | payer MEDICARE, OTHER ==
[2022-11-20 14:10] LABS: Appearance Clear (Clear); Bacteria None Seen /HPF (None Seen); Bilirubin Negative (Negative); Blood Negative (Negative); Epithelial Cells None Seen /HPF (None Seen); Glucose, Urine Negative (Negative); Hyaline Casts NONE SEEN /LPF (0-2); Ketones Negative (Negative); Leukocyte Esterase Trace (Negative); Nitrite Negative (Negative); Ph 6.5 (4.6-8.0); Protein,Urine Dip Negative (Negative); RBC 0-2 /HPF (0-5); Specific Gravity 1.015 (1.005-1.030); WBC 0-2 /HPF (0-5)
[2022-11-20 14:22] VITALS: BP 150/108; PULSE 108; O2SAT 97
[2022-11-20 14:25] LABS: ADD URINE CULTURE? NO (NO)
--- NOTE | 2022-11-20 14:28 | ERPHSYRPT ---
- History of Present Illness Time Seen by Provider: 11/20/22 13:55 Source: patient Exam Limitations: no limitations Patient Subjective Stated Complaint: C/O bilateral flank pain Triage Nursing Assessment: Patient ambulated back to ER. She is alert and oriented; tearful. No SOB. Physician History: Patient is here with acute on chronic back pain. Patient states that she has been lifting more objects at home. As well as having some increasing flank pain. Patient states that she did recently have a UTI. She would like to be rechecked. She feels this is either related to her recent musculoskeletal pain or a UTI. No falls or trauma. No red flag symptoms for back pain. No history of cancer, bowel or bladder changes, saddle anesthesia. She has no fever or chills, pain goes away with Tylenol and ibuprofen at home. Allergies/Adverse Reactions: prednisone Allergy (Intermediate, Verified 11/20/22 13:55) lisinopril Allergy (Mild, Verified 11/20/22 13:55) Cough Home Medications: Albuterol Sulfate [Ventolin Hfa] 18 gm IH Q4H PRN PRN 07/10/17 [History] Cetirizine HCl [Zyrtec] 10 mg PO HS 09/01/18 [History] Diazepam 5 mg [Valium 5 MG] 5 mg PO HS 09/13/22 [History] Escitalopram Oxalate [Lexapro] 10 mg PO DAILY 09/13/22 [History] Gabapentin [Neurontin ] 400 mg PO TID 09/13/22 [History] Hydrochlorothiazide 25 mg [hydroDIURIL 25 MG] 12.5 mg PO DAILY 09/13/22 [History] Losartan Potassium 50 mg [Cozaar 50 MG] 50 mg PO DAILY 09/13/22 [History] Oxybutynin Chloride [Oxybutynin Chloride ER] 15 mg PO HS 09/13/22 [History] Hx Tetanus, Diphtheria Vaccination/Date Given: Yes Hx Influenza Vaccination/Date Given: Yes Hx Pneumococcal Vaccination/Date Given: Yes Immunizations Up to Date: Yes Travel Risk - International Travel Have you traveled outside of the country in past 3 weeks: No - Coronavirus Screening Are you exhibiting any of the following symptoms?: No Close contact with a COVID-19 positive Pt in past 14-21 Days: No - Vaccine Status Have you recieved a Covid-19 vaccination: Yes 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 - Vaccination Dates Date of 2cond Vaccination (if applicable): 10/01/20 - Review of Systems Constitutional: No Fever, No Chills Eyes: No Symptoms Ears, Nose, & Throat: No Symptoms Respiratory: No Cough, No Dyspnea Cardiac: No Chest Pain, No Edema, No Syncope Abdominal/Gastrointestinal: No Abdominal Pain, No Nausea, No Vomiting, No Diarrhea Genitourinary Symptoms: No Dysuria Musculoskeletal: Back Pain, No Neck Pain Skin: No Rash Neurological: No Dizziness, No Focal Weakness, No Sensory Changes Psychological: No Symptoms Endocrine: No Symptoms All Other Systems: Reviewed and Negative - Past Medical History Pertinent Past Medical History: Yes Neurological History: TIA ENT History: Cataracts Cardiac History: High Cholesterol, Hypertension Respiratory History: Asthma Endocrine Medical History: No Pertinent History Musculoskeletal History: Arthritis, Degenerative Disk Disease GI Medical History: Gallbladder Disease, Hemorrhoids, Irritable Bowel History: No Pertinent History Psycho-Social History: Anxiety, Attention Deficit Disorder, Depression, Other Female Reproductive Disorders: Other Other Medical History: buldging disc - Past Surgical History Past Surgical History: Yes Neuro Surgical History: No Pertinent History Cardiac: No Pertinent History Respiratory: No Pertinent History Gastrointestinal: Appendectomy, Cholecystectomy, Hernia Repair Genitourinary: No Pertinent History Musculoskeletal: Orthopedic Surgery Female Surgical History: Hysterectomy Other Surgical History: L KNEE - CORNEAL TRANSPLANTS - CATARACTS BOTH EYES. C5- C6 NECK SURGERY tonsilectomy - Social History Smoking Status: Never smoker How long have you smoked: never Exposure to second hand smoke: No Drug Use: none Patient Lives Alone: No - Nursing Vital Signs Nursing Vital Signs: Initial Vital Signs Temperature 97.9 F 11/20/22 13:59 Pulse Rate 108 H 11/20/22 13:59 Respiratory Rate 18 11/20/22 13:59 Blood Pressure 150/108 11/20/22 13:59 O2 Sat by Pulse Oximetry 97 11/20/22 13:59 Pain Scale Pain Intensity 5 - Physical Exam General Appearance: no apparent distress, alert Eye Exam: PERRL/EOMI, eyes nml inspection Ears, Nose, Throat Exam: normal ENT inspection, pharynx normal, moist mucous membranes Neck Exam: normal inspection, non-tender, supple, full range of motion Respiratory Exam: normal breath sounds, lungs clear, No respiratory distress Cardiovascular Exam: regular rate/rhythm, normal heart sounds, normal peripheral pulses Gastrointestinal/Abdomen Exam: soft, normal bowel sounds, No tenderness, No mass Back Exam: normal inspection, normal range of motion, other (No midline tenderness no step-offs or deformity. Some minimal paraspinal tenderness no overlying skin changes.), No CVA tenderness, No vertebral tenderness Extremity Exam: normal inspection, normal range of motion, pelvis stable Neurologic Exam: alert, oriented x 3, cooperative, normal mood/affect, nml cerebellar function, nml station & gait, sensation nml, No motor deficits Skin Exam: normal color, warm, dry, No rash Lymphatic Exam: No adenopathy SpO2: 97 - Course Nursing assessment & vital signs reviewed: Yes Ordered Tests: Active Orders 24 hr Category Date Time Status UA W/RFX UR CULTURE Stat Lab 11/20/22 14:04 Completed Lab/Rad Data: Laboratory Results 11/20/22 Range/Units 14:04 Urine Color Yellow (Yellow) Urine Appearance Clear (Clear) Urine pH 6.5 (4.6-8.0) Ur Specific [place] 1.015 (1.005-1.030) Urine Protein Negative (Negative) Urine Glucose (UA) Negative (Negative) mg/dL Urine Ketones Negative (Negative) Urine Blood Negative (Negative) Urine Nitrite Negative (Negative) Urine Bilirubin Negative (Negative) Urine Urobilinogen 1.0 A (0.2) mg/dL Ur Leukocyte Esterase Trace A (Negative) U Hyaline Cast (Auto) NONE SEEN (0-2) /LPF Urine Microscopic RBC 0-2 (0-5) /HPF Urine Microscopic WBC 0-2 (0-5) /HPF Ur Epithelial Cells None Seen (None Seen) /HPF Urine Bacteria None Seen (None Seen) /HPF Urine Culture Reflexed NO (NO) - Progress Progress: improved Progress Note: 11/20/22 14:35 Differential diagnosis includes musculoskeletal back pain versus UTI versus pyelonephritis. UA shows no obvious signs of infection. Back pain somewhat reproducible on exam. Most likely musculoskeletal pain. Will give Flexeril and lidocaine patches to go home with. - Departure Departure Disposition: Home Clinical Impression: Acute back pain Condition: Stable Critical Care Time: No Referrals: BREE PHILLIPS MD [Primary Care Provider] - Follow up/PCP as directed Instructions: Back Exercises Prescriptions: Cyclobenzaprine HCl 10 mg [Flexeril 10 MG] 10 mg PO TID #12 tablet Lidocaine HCl 5% Patch [Lidoderm Patch 5%] 1 patch TP DAILY 7 Days #7 patch
== END 2022-11-20 14:37 | disposition home or self-care (01) ==
LOC: ED 13:48
DX: M54.9 Dorsalgia, unspecified (principal); E78.5 Hyperlipidemia, unspecified; I10 Essential (primary) hypertension; Z79.899 Other long term (current) drug therapy
CPT/HCPCS: 81001; 99282

== ENCOUNTER 2022-11-30 14:51 | Emergency (ER) | payer MEDICARE, OTHER ==
[2022-11-30 15:47] LABS: Absolute Neutrophil Ct (ANC) 3.47 x10^3/uL (1.4-6.9); BASOPHIL % 0.7 % (0.0-0.4); Basophil (Absolute #) 0.04 x10^3/uL (0-0.4); Eosinophil % 3.9 % (0.00-5.0); Eosinophil (Absolute #) 0.23 x10^3/uL (0-0.5); Hematocrit 35.9 % (35-47); Hemoglobin 11.1 g/dL (12.0-16.0); IMMATURE GRAN # 0.01 x10^3u/L (0.00-0.03); IMMATURE GRAN % 0.2 % (0.00-0.4); Lymphocyte (Absolute #) 1.54 x10^3/uL (1.0-4.6); Lymphocytes % 26.4 % (24.0-44.0); Mean Cell Volume 91.1 fL (78-100); Mean Corpuscular Hemoglobin 28.2 pg (26-32); Mean Corpuscular Hgb Concent. 30.9 g/dL (32-36); Mean Platelet Volume 10.2 fL (7.5-11.0); Monocyte (Absolute #) 0.54 x10^3/uL (0.0-1.3); Monocytes % 9.3 % (0.0-12.0); Neutrophil % 59.5 % (36.0-66.0); Platelet Count 188 x10^3/uL (150-450); Red Blood Count 3.94 x10^6/uL (4.1-5.4); Red Cell Distribution Width 13.4 % (11.5-14.0); White Blood Count 5.8 x10^3/uL (4.0-10.5)
--- NOTE | 2022-11-30 15:56 | ERPHSYRPT ---
- History of Present Illness Source: patient Exam Limitations: no limitations Patient Subjective Stated Complaint: pt here for swelling to lower legs, left leg has been swollen for a couple days and has wound on top of foot, she was seen yesterday and placed on antiboitcs, today right leg is swollen Triage Nursing Assessment: pt alert, resp easy, skin w/p/d. resp easy, has swelling to lower legs with wound to top of left foot, no drainage noted Physician History: 76 yo WF cc of BLE swelling x 1 wk. Pt states that pain is 5/10. She denies h/o CHF/DVT/PE and currently denies chest pain/dyspnea. Pt saw Dr. Phillips yesterday, and he called in an antibiotic for her L dorsal foot abrasion. She has not started them yet. Method of Injury: unknown Occurred: other (1 week) Severity of Pain-Max: moderate Severity of Pain-Current: moderate Lower Extremities Pain: leg: left Modifying Factors: Improves With: nothing Allergies/Adverse Reactions: prednisone Allergy (Intermediate, Verified 11/30/22 14:54) lisinopril Allergy (Mild, Verified 11/30/22 14:54) Cough Home Medications: Albuterol Sulfate [Ventolin Hfa] 18 gm IH Q4H PRN PRN 07/10/17 [History] Cetirizine HCl [Zyrtec] 10 mg PO HS 09/01/18 [History] Diazepam 5 mg [Valium 5 MG] 5 mg PO HS 09/13/22 [History] Escitalopram Oxalate [Lexapro] 10 mg PO DAILY 09/13/22 [History] Gabapentin [Neurontin ] 400 mg PO TID 09/13/22 [History] Hydrochlorothiazide 25 mg [hydroDIURIL 25 MG] 12.5 mg PO DAILY 09/13/22 [History] Losartan Potassium 50 mg [Cozaar 50 MG] 50 mg PO DAILY 09/13/22 [History] Oxybutynin Chloride [Oxybutynin Chloride ER] 15 mg PO HS 09/13/22 [History] Hx Tetanus, Diphtheria Vaccination/Date Given: Yes Hx Influenza Vaccination/Date Given: Yes Hx Pneumococcal Vaccination/Date Given: Yes Immunizations Up to Date: Yes Travel Risk - International Travel Have you traveled outside of the country in past 3 weeks: No - Coronavirus Screening Are you exhibiting any of the following symptoms?: No Close contact with a COVID-19 positive Pt in past 14-21 Days: No - Vaccine Status Have you recieved a Covid-19 vaccination: Yes 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 - Vaccination Dates Date of 2cond Vaccination (if applicable): 10/01/20 - Review of Systems Constitutional: No Symptoms Eyes: No Symptoms Ears, Nose, & Throat: No Symptoms Respiratory: No Symptoms Cardiac: No Symptoms Abdominal/Gastrointestinal: No Symptoms Genitourinary Symptoms: No Symptoms Neurological: No Symptoms Psychological: No Symptoms Endocrine: No Symptoms Hematologic/Lymphatic: No Symptoms Immunological/Allergic: No Symptoms - Past Medical History Pertinent Past Medical History: Yes Neurological History: TIA ENT History: Cataracts Cardiac History: High Cholesterol, Hypertension Respiratory History: Asthma Endocrine Medical History: No Pertinent History Musculoskeletal History: Arthritis, Degenerative Disk Disease GI Medical History: Hemorrhoids, Irritable Bowel History: No Pertinent History Psycho-Social History: Anxiety, Attention Deficit Disorder, Depression, Other Female Reproductive Disorders: Other Other Medical History: buldging disc - Past Surgical History Past Surgical History: Yes Neuro Surgical History: No Pertinent History Cardiac: No Pertinent History Respiratory: No Pertinent History Gastrointestinal: Appendectomy, Cholecystectomy, Hernia Repair Genitourinary: No Pertinent History Musculoskeletal: Orthopedic Surgery Female Surgical History: Hysterectomy Other Surgical History: L KNEE - CORNEAL TRANSPLANTS - CATARACTS BOTH EYES. C5- C6 NECK SURGERY tonsilectomy - Social History Smoking Status: Never smoker How long have you smoked: never Exposure to second hand smoke: No Drug Use: none Patient Lives Alone: No - Nursing Vital Signs Nursing Vital Signs: Initial Vital Signs Temperature 97.4 F 11/30/22 15:03 Pulse Rate 89 11/30/22 15:03 Respiratory Rate 18 11/30/22 15:03 Blood Pressure 105/53 11/30/22 15:03 O2 Sat by Pulse Oximetry 95 11/30/22 15:03 Pain Scale Pain Intensity 4 WNL - Physical Exam General Appearance: no apparent distress Eyes, Ears, Nose, Throat Exam: normal ENT inspection, TMs normal, pharynx normal, moist mucous membranes Neck Exam: normal inspection, non-tender, supple, full range of motion, No Brudzinski, No Kernig's, No meningismus, No carotid bruit Cardiovascular/Respiratory Exam: normal breath sounds, regular rate/rhythm, heart sounds normal Gastrointestinal/Abdominal Exam: non-tender, soft Back Exam: normal inspection, normal range of motion Hips Exam: bilateral: non-tender, normal inspection, normal range of motion, no evidence of injury Legs Exam: bilateral leg: swelling (2+) Knees Exam: bilateral knee: non-tender, normal inspection, normal range of motion, no evidence of injury Ankle Exam: bilateral ankle: non-tender, normal inspection, normal range of motion, no evidence of injury Foot Exam: left foot: abrasions/lacerations (Small abrasion dorsal L foot), bilateral foot: other (Good pedal pulses B) DTR - Lower Extremities Exam: knee (R): 2+, knee (L): 2+ Neuro/Tendon Exam: normal sensation, normal motor functions, normal tendon functions, responds to pain Mental Status Exam: alert, oriented x 3, cooperative Skin Exam: normal color, warm, dry SpO2 Interpretation: normal SpO2: 95 O2 Delivery: Room Air - Course Nursing assessment & vital signs reviewed: Yes EKG Interpreted by Me: RATE (NSR/Rate61/Normal QT-QTc/PVC/No acute ST segment changes/Normal T wave) - Radiology Exams Chest X-ray Interpretation: Reviewed by me (NAD) - Radiology Ultrasound Exam Venous Lower Extremity Ultrasound: discussed w/radiologist (No DVT) Ordered Tests: Active Orders 24 hr Category Date Time Status EKG-ER Only STAT Care 11/30/22 15:29 Completed CHEST 1 VIEW (PORTABLE) Stat Exams 11/30/22 15:29 Taken VENOUS BILATERAL EXTREMITY [US] Stat Exams 11/30/22 15:28 Taken CBC W DIFF Stat Lab 11/30/22 15:46 Completed CMP Stat Lab 11/30/22 15:46 Completed MAGNESIUM Stat Lab 11/30/22 15:46 Completed NT PRO BNPII Stat Lab 11/30/22 15:46 Completed TROPONIN Q4H Lab 11/30/22 15:46 Completed TROPONIN Q4H Lab 11/30/22 19:30 Ordered TROPONIN Q4H Lab 11/30/22 23:30 Ordered Lab/Rad Data: Laboratory Result Diagrams 11/30/22 15:46 11/30/22 15:46 Laboratory Results 11/30/22 11/30/22 11/30/22 Range/Units 15:46 15:46 15:46 WBC (4.0-10.5) x10^3/uL RBC (4.1-5.4) x10^6/uL Hgb (12.0-16.0) g/dL Hct (35-47) % MCV (78-100) fL MCH (26-32) pg MCHC (32-36) g/dL RDW (11.5-14.0) % Plt Count (150-450) x10^3/uL MPV (7.5-11.0) fL Gran % (36.0-66.0) % Immature Gran % (Auto) (0.00-0.4) % Nucleat RBC Rel Count (0.00-0.1) % Eos # (Auto) (0-0.5) x10^3/uL Immature Gran # (Auto) (0.00-0.03) x10^3u/L Absolute Lymphs (auto) (1.0-4.6) x10^3/uL Absolute Monos (auto) (0.0-1.3) x10^3/uL Absolute Nucleated RBC (0.00-0.01) x10^3u/L Lymphocytes % (24.0-44.0) % Monocytes % (0.0-12.0) % Eosinophils % (0.00-5.0) % Basophils % (0.0-0.4) % Absolute Granulocytes (1.4-6.9) x10^3/uL Basophils # (0-0.4) x10^3/uL Sodium 142 (137-145) mmol/L Potassium 3.4 L (3.5-5.1) mmol/L Chloride 103 (98-107) mmol/L Carbon Dioxide 33 H (22-30) mmol/L Anion Gap 8.8 (5-15) MEQ/L BUN 16 (7-17) mg/dL Creatinine 0.74 (0.52-1.04) mg/dL Estimated GFR > 60.0 ML/MIN Glucose 94 (74-106) mg/dL Calcium 8.5 (8.4-10.2) mg/dL Magnesium 2.1 (1.6-2.3) mg/dL Total Bilirubin 0.60 (0.2-1.3) mg/dL AST 24 (14-36) U/L ALT 16 (0-35) U/L Alkaline Phosphatase 85 (38-126) U/L Troponin I < 0.012 (0.000-0.034) ng/mL NT-Pro-B Natriuret Pep 1320 (<300) pg/mL Serum Total Protein 6.5 (6.3-8.2) g/dL Albumin 3.5 (3.5-5.0) g/dL 11/30/22 Range/Units 15:46 WBC 5.8 (4.0-10.5) x10^3/uL RBC 3.94 L (4.1-5.4) x10^6/uL Hgb 11.1 L (12.0-16.0) g/dL Hct 35.9 (35-47) % MCV 91.1 (78-100) fL MCH 28.2 (26-32) pg MCHC 30.9 L (32-36) g/dL RDW 13.4 (11.5-14.0) % Plt Count 188 (150-450) x10^3/uL MPV 10.2 (7.5-11.0) fL Gran % 59.5 (36.0-66.0) % Immature Gran % (Auto) 0.2 (0.00-0.4) % Nucleat RBC Rel Count 0.0 (0.00-0.1) % Eos # (Auto) 0.23 (0-0.5) x10^3/uL Immature Gran # (Auto) 0.01 (0.00-0.03) x10^3u/L Absolute Lymphs (auto) 1.54 (1.0-4.6) x10^3/uL Absolute Monos (auto) 0.54 (0.0-1.3) x10^3/uL Absolute Nucleated RBC 0.00 (0.00-0.01) x10^3u/L Lymphocytes % 26.4 (24.0-44.0) % Monocytes % 9.3 (0.0-12.0) % Eosinophils % 3.9 (0.00-5.0) % Basophils % 0.7 (0.0-0.4) % Absolute Granulocytes 3.47 (1.4-6.9) x10^3/uL Basophils # 0.04 (0-0.4) x10^3/uL Sodium (137-145) mmol/L Potassium (3.5-5.1) mmol/L Chloride (98-107) mmol/L Carbon Dioxide (22-30) mmol/L Anion Gap (5-15) MEQ/L BUN (7-17) mg/dL Creatinine (0.52-1.04) mg/dL Estimated GFR ML/MIN Glucose (74-106) mg/dL Calcium (8.4-10.2) mg/dL Magnesium (1.6-2.3) mg/dL Total Bilirubin (0.2-1.3) mg/dL AST (14-36) U/L ALT (0-35) U/L Alkaline Phosphatase (38-126) U/L Troponin I (0.000-0.034) ng/mL NT-Pro-B Natriuret Pep (<300) pg/mL Serum Total Protein (6.3-8.2) g/dL Albumin (3.5-5.0) g/dL - Progress Progress Note: 11/30/22 17:32 Nursing note and vital signs reviewed No food or housing insecurities noted All labs reviewed and shared w pt CXR/B venous doppler results reviewed and shared w pt Although pro-BNP elevated, pt has no clinical or XR evidence of CHF or WA. Pt started on 20mg po Lasix daily along w 20Meq of po KCl Pt to follow up with Dr. Phillips Counseled pt/family regarding: lab results, diagnosis, need for follow-up, rad results Medical Desision Making - Diagnostic Testing Diagnostic test were ordered, analyzed, and reviewed by me: Yes Radiological Interpretation: Reviewed by me - Risk of complications The pt has a mod risk of morbidity or mortality based on: Need for prescription drug management - Departure Departure Disposition: Home Clinical Impression: Edema Condition: Stable Critical Care Time: No Referrals: BREE PIHLLIPS MD [Primary Care Provider] - Follow up/PCP as directed Instructions: Dependent Edema (DC) Additional Instructions: Start Lasix 20mg daily Also take Potassium 20mEq daily Follow up with Dr. Phillips in 1-2 days Return to ER for increased swelling, shortness of breath, or chest pain Prescriptions: Furosemide 20 mg [Lasix 20 mg] 20 mg PO DAILY #30 tablet Potassium Chloride 20 meq PO DAILY #30 tablet
[2022-11-30 16:00] LABS: ALBUMIN 3.5 g/dL (3.5-5.0); ALKALINE PHOSPHATASE 85 U/L (38-126); ANION GAP 8.8 MEQ/L (5-15); BLOOD UREA NITROGEN 16 mg/dL (7-17); CHLORIDE 103 mmol/L (98-107); Calcium 8.5 mg/dL (8.4-10.2); Carbon Dioxide 33 mmol/L (22-30); Creatinine 1 0.74 mg/dL (0.52-1.04); EST GLOMERULAR FILTRATION RATE > 60.0 ML/MIN; Glucose 94 mg/dL (74-106); MAGNESIUM 2.1 mg/dL (1.6-2.3); Potassium 3.4 mmol/L (3.5-5.1); SGOT/AST 24 U/L (14-36); SGPT/ALT 16 U/L (0-35); SODIUM 142 mmol/L (137-145); Total Protein 6.5 g/dL (6.3-8.2)
[2022-11-30 17:08] VITALS: BP 120/53; PULSE 73
[2022-11-30 17:35] VITALS: O2SAT 95
--- NOTE | 2022-11-30 20:00 | XRAY ---
Indication: Lower extremity edema. Comparison: September 13, 2022 Portable chest again demonstrates normal heart and lungs with a few incidental tiny calcified granulomas. Bony thorax intact again with osteopenia, mild degenerative changes, and lower cervical fusion hardware. No new/acute findings.
--- NOTE | 2022-12-01 03:01 | XRAY ---
Indication: Bilateral leg pain and swelling. Two-dimensional sonogram and color Doppler imaging of the major venous vessels of the left and right leg performed. Comparison: None No thrombus seen in the examined deep venous vessels of the left and right leg including greater saphenous vein. Veins demonstrate normal compressibility. Venous waveforms are normal with and without augmentation. Impression: Left and right legs negative for DVT.
== END 2022-11-30 17:08 | disposition home or self-care (01) ==
LOC: ED 14:51
DX: R60.0 Localized edema (principal); E78.5 Hyperlipidemia, unspecified; I10 Essential (primary) hypertension; Z86.73 Personal history of transient ischemic attack (TIA), and cerebral infarction without residual deficits; Z79.899 Other long term (current) drug therapy
CPT/HCPCS: 36415; 71045; 80053; 83735; 83880; 84484; 85025; 93005; 93970; 99283

== ENCOUNTER 2023-08-18 13:58 | Emergency (ER) | payer MEDICARE, OTHER ==
[2023-08-18 14:09] VITALS: RESP 20; TEMP 97.7
--- NOTE | 2023-08-18 14:26 | ERPHSYRPT ---
- History of Present Illness Source: patient Exam Limitations: no limitations Patient Subjective Stated Complaint: Pt states "I was just sitting there on my ipad and when I went to move my shoulder was hurting really bad and I was having a hard time moving it." Triage Nursing Assessment: Pt presented alert and oriented X 3, skin pwd. Pt ambulates with an upright steady gait, able to speak in clear full sentences. pt left shoulder tender and painful upon movement. Physician History: 77-year-old female with chief complaint of left shoulder pain which began at 1600 yesterday after she was playing with her iPad. Pain is sharp and worse with movement. She denies any trauma. Pain is rated 6 out of 10. Patient denies any chest pain or dyspnea. Patient is right-handed. Occurred: other ( 1600 yesterday) Method of Injury: other ( denies injury) Quality: sharpness Severity of Pain-Max: severe Severity of Pain-Current: moderate Extremities Pain Location: shoulder: left Modifying Factors: Improves With: movement Associated Symptoms: none Allergies/Adverse Reactions: prednisone Allergy (Intermediate, Verified 11/30/22 14:54) lisinopril Allergy (Mild, Verified 11/30/22 14:54) Cough Home Medications: Albuterol Sulfate [Ventolin Hfa] 18 gm IH Q4H PRN PRN 07/10/17 [History] Cetirizine HCl [Zyrtec] 10 mg PO HS 09/01/18 [History] Diazepam 5 mg [Valium 5 MG] 5 mg PO HS 09/13/22 [History] Escitalopram Oxalate [Lexapro] 10 mg PO DAILY 09/13/22 [History] Gabapentin [Neurontin ] 400 mg PO TID 09/13/22 [History] Hydrochlorothiazide 25 mg [hydroDIURIL 25 MG] 12.5 mg PO DAILY 09/13/22 [History] Losartan Potassium 50 mg [Cozaar 50 MG] 50 mg PO DAILY 09/13/22 [History] Oxybutynin Chloride [Oxybutynin Chloride ER] 15 mg PO HS 09/13/22 [History] Hx Tetanus, Diphtheria Vaccination/Date Given: Yes Hx Influenza Vaccination/Date Given: Yes Hx Pneumococcal Vaccination/Date Given: Yes Immunizations Up to Date: Yes Travel Risk - International Travel Have you traveled outside of the country in past 3 weeks: No - Coronavirus Screening Are you exhibiting any of the following symptoms?: No Close contact with a COVID-19 positive Pt in past 14-21 Days: No - Vaccine Status Have you recieved a Covid-19 vaccination: Yes [employer]: Moderna - Vaccination Dates Date of 2cond Vaccination (if applicable): 10/01/20 - Review of Systems Constitutional: No Symptoms Eyes: No Symptoms Ears, Nose, & Throat: No Symptoms Respiratory: No Symptoms Cardiac: No Symptoms Abdominal/Gastrointestinal: No Symptoms Genitourinary Symptoms: No Symptoms Skin: No Symptoms Neurological: No Symptoms Psychological: No Symptoms Endocrine: No Symptoms Hematologic/Lymphatic: No Symptoms Immunological/Allergic: No Symptoms - Past Medical History Pertinent Past Medical History: Yes Neurological History: TIA ENT History: Cataracts Cardiac History: High Cholesterol, Hypertension Respiratory History: Asthma Endocrine Medical History: No Pertinent History Musculoskeletal History: Arthritis, Degenerative Disk Disease GI Medical History: Hemorrhoids, Irritable Bowel History: No Pertinent History Psycho-Social History: Anxiety, Attention Deficit Disorder, Depression, Other Female Reproductive Disorders: Other Other Medical History: buldging disc - Past Surgical History Past Surgical History: Yes Neuro Surgical History: No Pertinent History Cardiac: No Pertinent History Respiratory: No Pertinent History Gastrointestinal: Appendectomy, Cholecystectomy, Hernia Repair Genitourinary: No Pertinent History Musculoskeletal: Orthopedic Surgery Female Surgical History: Hysterectomy Other Surgical History: L KNEE - CORNEAL TRANSPLANTS - CATARACTS BOTH EYES. C5- C6 NECK SURGERY tonsilectomy - Social History Smoking Status: Never smoker How long have you smoked: never Exposure to second hand smoke: No Drug Use: none Patient Lives Alone: Yes - Nursing Vital Signs Nursing Vital Signs: Initial Vital Signs Temperature 97.7 F 08/18/23 14:04 Pulse Rate 96 H 08/18/23 14:04 Respiratory Rate 20 08/18/23 14:04 Blood Pressure 161/96 08/18/23 14:04 O2 Sat by Pulse Oximetry 97 08/18/23 14:04 Pain Scale Pain Intensity 0 hypertensive - Physical Exam General Appearance: no apparent distress Eyes, Ears, Nose, Throat Exam: normal ENT inspection, TMs normal, pharynx normal, moist mucous membranes Neck Exam: normal inspection, non-tender, supple, full range of motion, No Brudzinski, No Kernig's, No meningismus Cardiovascular/Respiratory Exam: normal breath sounds, regular rate/rhythm, heart sounds normal Abdominal Exam: non-tender, soft Back Exam: normal inspection ( no T or L-spine tenderness palpation) Shoulder Exam: bone tenderness ( left shoulder tenderness to palpation ante riorly, pain with abduction and external rotation, Good left radial pulse, distal sensation, and capillary return.) Elbow/Forearm Exam: normal inspection, non-tender, no evidence of injury Wrist Exam: normal inspection, non-tender, no evidence of injury Hand Exam: normal inspection, non-tender, no evidence of injury Neuro/Tendon Exam: normal sensation, normal motor functions, normal tendon functions, responds to pain Mental Status Exam: alert, oriented x 3, cooperative Skin Exam: normal color, warm, dry SpO2 Interpretation: normal SpO2: 97 O2 Delivery: Room Air - Course Nursing assessment & vital signs reviewed: Yes EKG Interpreted by Me: RATE ( Normal sinus rhythm/rate 82/normal QT-QTc/occasional PVC/normal limit T waves/no acute ST segment changes/interpret contemporaneously per ER physician.) - Radiology Exams Shoulder X-ray Interpretation: Reviewed by me (Left shoulder x-ray with chronic degenerative disease without acute findings) Ordered Tests: Active Orders 24 hr Category Date Time Status EKG-ER Only STAT Care 08/18/23 14:15 Completed SHOULDER Stat Exams 08/18/23 14:15 Completed Medication Summary Discontinued Medications Generic Name Dose Route Start Last Admin Trade Name Freq PRN Reason Stop Dose Admin Ketorolac Tromethamine 15 mg 08/18/23 15:12 08/18/23 15:21 Ketorolac Tromethamine 30 Mg/Ml Inj IM 08/18/23 15:13 15 mg STAT ONE Administration Ketorolac Tromethamine Confirm 08/18/23 15:16 Ketorolac Tromethamine 30 Mg/Ml Inj Administered 08/18/23 15:17 Dose 30 mg .ROUTE .STK-MED ONE Lab/Rad Data: Laboratory Results 08/18/23 Range/Units 14:20 Troponin 0.00 (0.00-0.03) ng/mL - Progress Progress Note: 08/18/23 15:25 Nursing note and vital signs reviewed. No food or housing insecurity noted All lab results reviewed and shared with patient. Left shoulder x-ray reviewed and shared with patient. Left shoulder pain appears to be musculoskeletal due to degenerative joint disease and/or rotator cuff tendinopathy. Patient has an EKG without acute changes and troponin is negative after almost 24 hours of pain. Patient no chest pain or dyspnea while in the ER. Patient discharged in stable condition to follow-up with her PCP. Patient given 15 g IM Toradol before discharge. Prescription for oral Toradol sent to patient's pharmacy. Patient instructed to return to ER for any chest pain or shortness of breath. Counseled pt/family regarding: lab results, diagnosis, need for follow-up, rad results Medical Desision Making - Diagnostic Testing Radiological Interpretation: Reviewed by me - Risk of complications The pt has a mod risk of morbidity or mortality based on: Need for prescription drug management - Departure Departure Disposition: Home Clinical Impression: Degenerative joint disease of left shoulder Condition: Stable Critical Care Time: No Referrals: BREE PHILLIPS MD [Primary Care Provider] - Follow up/PCP as directed Instructions: Shoulder Tendinopathy (DC) Additional Instructions: Rest/heat/massage Toradol as needed for pain Follow-up with your family MD next week. Return to ER for increasing pain, any chest pain, or shortness of breath. Prescriptions: Ketorolac Trometh 10 mg Tab [TORAdol 10 MG TABLET] 10 mg PO TID PRN PRN #10 tablet PRN Reason: Pain
--- NOTE | 2023-08-18 14:57 | XRAY ---
Indication: Pain. Comparison: None 3 view left shoulder demonstrates osteopenia, mild AC degenerative arthropathy, 4 mm heterotopic ossification adjacent to greater tuberosity humeral head, mild degenerative changes throughout spine, C6-C7 fusion hardware, and tiny left lung base calcified granulomas. No other bony, articular, or soft tissue abnormalities. Impression: Nonacute left shoulder with chronic features.
[2023-08-18] MEDS ORDERED: TORAdol 30 mg Injection IM ONE (15:12)
[2023-08-18] MEDS ORDERED: TORAdol 30 mg Injection ONE (15:16)
[2023-08-18 15:55] VITALS: BP 150/68; PULSE 63
[2023-08-18 17:48] VITALS: O2SAT 97
== END 2023-08-18 16:02 | disposition home or self-care (01) ==
LOC: ED 13:58
DX: M19.012 Primary osteoarthritis, left shoulder (principal); M25.512 Pain in left shoulder; E78.5 Hyperlipidemia, unspecified; I10 Essential (primary) hypertension; Z79.899 Other long term (current) drug therapy
CPT/HCPCS: 36415; 73030; 84484; 93005; 96372; 99284; J1885

== ENCOUNTER 2025-04-09 13:52 | Day surgery (SDC) | payer MEDICARE, OTHER ==
[2025-04-09] MEDS ORDERED: LIDOCAINE HCL 2% 100 MG/5 ML IJ ONE (13:53)
[2025-04-09] MEDS ORDERED: methylPREDNISolone acetate IM ONE (13:53)
[2025-04-09] MEDS ORDERED: propofoL IV ONE (16:11)
--- NOTE | 2025-04-09 16:50 | XRAY ---
Indication: Bilateral L4-S1 MBB. Intraoperative fluoroscopy provided for 14 seconds. Single digital spot image submitted for interpretation demonstrates posterior needle tips projecting over expected left and right L4-S1 nerve roots. Correlate with intraoperative findings/report.
[2025-04-09] MEDS ORDERED: Lactated Ringers 1,000 ML IV ONE (17:54)
--- NOTE | 2025-04-09 19:12 | XRAY ---
14 seconds of fluoroscopy were used in surgery for a bilateral L4-S1 MBB.
== END 2025-04-09 16:45 | disposition home or self-care (01) ==
LOC: SDC-PAIN 13:52
PROVIDERS: ATTEND Psychiatry & Neurology Pain Medicine
DX: M47.817 Spondylosis without myelopathy or radiculopathy, lumbosacral region (principal)

== ENCOUNTER 2025-05-21 14:23 | Day surgery (SDC) | payer MEDICARE, OTHER ==
[2025-05-21] MEDS ORDERED: methylPREDNISolone acetate IM ONE (14:24)
[2025-05-21] MEDS ORDERED: BUPIVACAINE 0.5% VIAL IJ ONE (14:24)
[2025-05-21] MEDS ORDERED: propofoL IV ONE (17:42)
[2025-05-21] MEDS ORDERED: Lactated Ringers 1,000 ML IV ONE (18:16)
--- NOTE | 2025-05-22 08:38 | XRAY ---
Indication: Bilateral L4-S1 MBB. Intraoperative fluoroscopy provided for 18 seconds. Single digital spot images submitted for interpretation demonstrates posterior needle tips projecting over expected left and right L4-S1 nerve roots. Correlate with intraoperative findings/report.
--- NOTE | 2025-05-22 09:35 | XRAY ---
18 seconds of fluoroscopy was used in surgery for a bilateral L4-S1 MBB.
== END 2025-05-21 18:15 | disposition home or self-care (01) ==
LOC: SDC-PAIN 14:23
PROVIDERS: ATTEND Psychiatry & Neurology Pain Medicine
DX: M47.817 Spondylosis without myelopathy or radiculopathy, lumbosacral region (principal)